=== PATIENT | female | born 1990 | race Caucasian/White ===

== ENCOUNTER 2024-03-19 12:31 | Outpatient (OUT) | payer OTHER, SELFPAY ==
--- NOTE | 2024-03-19 12:36 | US_ITS ---
[address] [address] Patient Name: JUAN FRANCISCO MENDOZA MRN: [id number] date: 1990 Sex: F Assigned Patient Location: [facility] Current Patient Location: [facility] Accession/Order Number: [id number] Exam Date: 03/19/2024 12:36 Report Date: 03/19/2024 13:36 At the request of: RADHA BAIG Procedure: US OB transvaginal EXAMINATION: US OB transvaginal HISTORY: MISSED MENSES COMPARISON: No relevant comparison available. FINDINGS: GESTATIONAL SAC: Present and normal appearing. YOLK SAC: Present and normal appearing. POLE: Present and normal appearing. CARDIAC: Present. UTERUS: Normal size and appearance. OVARIES: Right: Normal. Left: Normal. CERVIX: 5.0 cm in length and closed. CUL-DE-SAC: Normal. OTHER: None. AGE BY LMP: 8 weeks 6 days ÁLVARO BY LMP: 10/23/2024 AGE BY US CRL: 9 weeks 1 day ÁLVARO BY US CRL: 10/21/2024 US/US OB transvaginal IMPRESSION: 1. Single live intrauterine . Electronically authenticated by: FERN CALZADA Date: 03/19/2024 13:36
== END 2024-03-19 12:32 | disposition home or self-care (01) ==
LOC: NOMS 12:32
PROVIDERS: PCP Nurse Practitioner; Visit Provider Obstetrics & Gynecology
DX: Z34.91 Encounter for supervision of normal pregnancy, unspecified, first trimester (principal); Z3A.09 9 weeks gestation of pregnancy; N92.6 Irregular menstruation, unspecified
CPT/HCPCS: 76817

== ENCOUNTER 2024-05-14 12:54 | Outpatient (OUT) | payer OTHER, SELFPAY ==
[2024-05-14 13:37] LABS: Basophils Percent Auto 0.4 % (0.2-2.0); Eosinophils Absolute Auto 0.1 10^3/uL (0.0-0.7); Eosinophils Percent Auto 1.3 % (0.9-7.0); Hematocrit 33.8 % (36.0-48.0); Hemoglobin 11.3 g/dL (12.0-16.0); Immature Granulocytes Abs Auto 0.02 10^3/uL (0.00-0.03); Immature Granulocytes Pct Auto 0.3 % (0.0-0.5); Lymphocytes Absolute Auto 1.6 10^3/uL (1.2-3.8); Lymphocytes Percent Auto 21.1 % (20.5-60.0); Mean Corpuscular HGB Conc 33.4 g/dL (29.9-35.2); Mean Corpuscular Hemoglobin 30.9 pg (26.7-34.0); Mean Corpuscular Volume 92.3 fL (81.0-99.0); Mean Platelet Volume 9.9 fL (9.5-13.5); Monocytes Absolute Auto 0.5 10^3/uL (0.3-0.8); Monocytes Percent Auto 5.8 % (1.7-12.0); Neutrophils Absolute Auto 5.5 10^3/uL (1.4-6.5); Neutrophils Percent Auto 71.1 % (43.0-75.0); Platelet Count 265 10^3/uL (150-450); Red Blood Count 3.66 10^6/uL (4.20-5.40); Red Cell Distribution Width 13.3 % (11.0-15.0); White Blood Count 7.7 10^3/uL (4.0-11.0)
[2024-05-14 15:59] LABS: Estimated Average Glucose 88 mg/dL; Glycohemoglobin A1C 4.7 % (4.5-6.2)
[2024-05-15 06:10] LABS: HBsAg Screen Negative (Negative); HCV Ab Non Reactive (Non Reactive); HIV Ab/p24 Ag Screen Non Reactive (Non Reactive); Rubella Antibodies, IgG 2.14 index (Immune >0.99)
[2024-05-15 11:09] LABS: Rapid Plasma Reagin, Quant Non Reactive titer (NonRea<1:1)
== END 2024-05-14 12:55 | disposition home or self-care (01) ==
LOC: LAB 12:56
PROVIDERS: PCP Nurse Practitioner; Visit Provider Obstetrics & Gynecology
DX: Z34.90 Encounter for supervision of normal pregnancy, unspecified, unspecified trimester (principal); Z87.59 Personal history of other complications of pregnancy, childbirth and the puerperium
CPT/HCPCS: 36415; 83036; 85025; 86592; 86762; 86803; 86850; 86900; 86901; 87086; 87340; 87389

== ENCOUNTER 2024-05-21 20:32 | Outpatient (REF) | payer OTHER, SELFPAY ==
--- OUTSIDE RECORDS SUMMARY | 2024-05-21 20:37 | XMS_ITS | CCD ---
Author Organization [facility] Care Team Providers Care Senior Mainframe Developer Name Role Phone Augie Pedroza MD Primary Care Provider [phone] ELVIA DONIS Admitting Unavailable ELVIA DONIS Attending Unavailable AUGIE PEDROZA Primary Care Unavailable KI LEAL Consulting Unavailable AUGIE PEDROZA Referring Unavailable AUGIE PEDROZA Primary Care Unavailable THERESA, DR CHELITA Melendez Consulting Unavailable MISC, DR DOSHI Primary Care Unavailable JOVANNI, DR GARCIA Attending Unavailable JOVANNI, DR GARCIA Admitting Unavailable JOVANNI, DR GARCIA Consulting Unavailable KARASIK, DR RUVALCABA Consulting Unavailable KARASIK, DR RUVALCABA Attending Unavailable KARASIK, DR RUVALCABA Admitting Unavailable MISC, DR DOSHI Primary Care Unavailable MISC, DR DOSHI Primary Care Unavailable JOVANNI, DR GARCIA Attending Unavailable JOVANNI, DR GARCIA Admitting Unavailable JOVANNI, DR GARCIA Consulting Unavailable MISC, DR DOSHI Primary Care Unavailable KARASIK, DR RUVALCABA Attending Unavailable KARASIK, DR RUVALCABA Admitting Unavailable KARASIK, DR RUVALCABA Consulting Unavailable KARASIK, DR RUVALCABA Attending Unavailable KARASIK, DR RUVALCABA Admitting Unavailable MISC, DR DOSHI Primary Care Unavailable JOVANNI, DR GARCIA Consulting Unavailable ZIEBER, DR FERN Andrade Consulting Unavailable MARTIN SIERRA Consulting Unavailable MISC, DR DOSHI Primary Care Unavailable MARTIN SIERRA Attending Unavailable MARTIN SIERRA Admitting Unavailable REQUEST, DR BRAMBILA LISTED Consulting Unavaila ble MISC, DR DOSHI Primary Care Unavailable REQUEST, NONE LISTED Attending Unavaila ble REQUEST, DR BRAMBILA LISTED Admitting Unavaila ble MARTIN SIERRA Consulting Unavailable MISC, DR DOSHI Primary Care Unavailable MARTIN SIERRA Attending Unavailable MARTIN SIERRA Admitting Unavailable MARTIN SIERRA Consulting Unavailable MISC, DR DOSHI Primary Care Unavailable MARTIN SIERRA Attending Unavailable MARTIN SIERRA Admitting Unavailable THERESA, DR CHELITA Melendez Consulting Unavailable MARTIN SIERRA Primary Care Unavailable MARIELA, MARTIN Attending Unavailable MARIELA, MARTIN Admitting Unavailable MARIELA, MARTIN Consulting Unavailable JOVANNI, DR GARCIA Consulting Unavailable MISC, DR DOSHI Primary Care Unavailable JOVANNI, DR GARCIA Attending Unavailable JOVANNI, DR GARCIA Admitting Unavailable ZIEBER, DR FERN Andrade Consulting Unavailable MISC, DR DOSHI Primary Care Unavailable MARIELA, MARTIN Attending Unavailable MARIELA, MARTIN Admitting Unavailable MARIELA, MARTIN Consulting Unavailable JOVANNI, DR GARCIA Attending Unavailable JOVANNI, DR GARCIA Admitting Unavailable MISC, DR DOSHI Consulting Unavailable MISC, DR DOSHI Primary Care Unavailable JOVANNI, DR GARCIA Consulting Unavailable MISC, DR DOSHI Primary Care Unavailable JOVANNI, DR GARCIA Attending Unavailable JOVANNI, DR GARCIA Admitting Unavailable ZIEBER, DR FERN Andrade Consulting Unavailable WEST, DR CHELITA Melendez Consulting Unavailable MISC, DR DOSHI Primary Care Unavailable JOVANNI, DR GARCIA Attending Unavailable JOVANNI, DR GARCIA Admitting Unavailable JOVANNI, DR GARCIA Consulting Unavailable KARASIK, DR RUVALCABA Consulting Unavailable KARASIK, DR RUVALCABA Attending Unavailable KARASIK, DR RUVALCABA Admitting Unavailable MISC, DR DOSHI Primary Care Unavailable JOVANNI, DR GARCIA Consulting Unavailable ZIEBER, DR FERN Andrade Consulting Unavailable Ana Em Primary Care Physician [facility])[phone] Nicol, TOSHA Bergeron Attending Unavailable JOVANNI, RADHA Attending Unavailable JOVANNI, RADHA Attending Unavailable Medications Current Medications Medication Drug Class(es) Dates Sig (Normalized) Sig (Original) acetaminophen 500 mg oral tablet (1 source) Start: 10-05-2021 1,000 mg, Oral, EVERY 6 HOURS PRN, Pain Mild (1-3), Pain Mild (1-3) or Fever greater than 100.5 F (38 C), Starting on Azucena 10/05/21 at 1941 Maximum dose of acetaminophen is 4000 mg from all sources in 24 hours. aspirin 81 mg delayed release oral tablet (2 sources) Platelet Aggregation Inhibitor, Nonsteroidal Anti-inflammatory Drug Start: 10-06-2021 aspirin EC tablet 81 mg azithromycin 250 mg oral tablet (1 source) Macrolide Antimicrobial Start: 10-02-2021 azithromycin (ZITHROMAX) 250 MG tablet betamethasone 3 mg/ml / betamethasone acetate 3 mg/ml injectable suspension (1 source) Corticosteroid Start: 10-05-2021 End: 10-07-2021 inject 12 mg by intramuscular injection every twenty-four hours 12 mg, IntraMUSCular, EVERY 24 HOURS, First dose on Azucena 10/05/21 at 2000, For 2 doses 24 hr buPROPion hydrochloride 150 mg extended release oral tablet (2 sources) Aminoketone Start: 04-24-2022 take 1 tablet by mouth every twenty-four hours Wellbutrin XL 150 mg/24 hours Tab-ER 150 mg = 1 tab(s), Oral, q24hr, # 90 tab(s), Refills(s) 2, Pharmacy: [facility], 157.4, cm, 04/24/22 13:18:00 EDT, Height/Length Dosing, 72, kg, 03/22/22 14:14:00 EDT, Weight Dosing Start Date: 04/24/22 Status: Ordered Start: 03-22-2022 take 1 tablet by myah th every twenty-four hours Wellbutrin XL 150 mg/24 hours Tab-ER 150 mg = 1 tab(s), Oral, q24hr, # 30 tab(s), Refills(s) 0, Pharmacy: [facility], 157.4, cm, 03/22/22 14:14:00 EDT, Height/Length Dosing, 72, kg, 03/22/22 14:14:00 EDT, Weight Dosing Start Date: 03/22/22 Status: Ordered ondansetron 4 mg disintegrating oral tablet (1 source) Serotonin-3 Receptor Antagonist Start: 09-06-2021 ondansetron (ZOFRAN-ODT) 4 MG disintegrating tablet ondansetron (ZOFRAN-ODT) disintegrating tablet 4 mg (1 source) Start: 10-05-2021 ondansetron (ZOFRAN-ODT) disintegrating tablet 4 mg Vit-Fe Fumarate-FA ( VITAMINS PO) (1 source) Vit-Fe Fumarate-FA ( VITAMINS PO) Take 1 tablet by mouth 0 Active vitamin plus iron 29-1 MG tablet 1 tablet (1 source) Start: 10-06-2021 take 1 tablet by mouth once daily 1 tablet, Oral, DAILY, First dose on Sat10/06/21 at 0900 sertraline 25 mg oral tablet (4 sources) Serotonin Reuptake Inhibitor Start: 11-07-2021 take 1 tablet by mouth once daily Zoloft 25 mg Tab 25 mg = 1 tab(s), Oral, Daily, Refills(s) 0 Start Date: 11/07/21 Status: Ordered Start: 07-08-2021 sertraline (ZO LOFT) tablet 25 mg Problems Active Problems Problem Classification Problem Date Documented Date Episodic/Chronic Administrative/social admission (3 sources) Patient encounter status; Translations: [Persons encountering health services in other specified circumstances] Onset: 03-22-2022 Episodic Anxiety disorders (6 sources) Anxiety; Translations: [Anxiety disorder, unspecified] Onset: 10-05-2021 Chronic Attention-deficit, conduct, and disruptive behavior disorders (2 sources) Attention deficit hyperactivity disorder; Translations: [Attention-deficit hyperactivity disorder, unspecified type] Onset: 04-24-2022 Chronic Malposition; malpresentation (2 sources) Breech presentation; Translations: [Maternal care for breech presentation, not applicable or unspecified] Episodic Menstrual disorders (4 sources) Secondary amenorrhea; 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] Onset: 05-16-2021 Chronic Mood disorders (4 sources) Depressive disorder; Translations: [Depression, unspecified] Onset: 03-22-2022 Chronic Other complications of (3 sources) condition affecting obstetrical care of mother; Translations: [Maternal care for abnormalities of the heart rate or rhythm, unspecified trimester, not applicable or unspecified] Onset: 10-05-2021 Episodic Other complications of (3 sources) High risk ; Translations: [Supervision of high risk , unspecified, unspecified trimester] Onset: 10-05-2021 Episodic Other complications of (2 sources) ultrasound scan abnormal; Translations: [Abnormal ultrasonic finding on screening of mother] Onset: 10-05-2021 Episodic Other complications of (4 sources) Supervision of other high risk pregnancies, third trimester; Translations: [SUP OTH HIGH RISK 3RD TRI] Onset: 11-06-2021 Episodic Other complications of (1 source) Supervision of high risk , unspecified, unspecified trimester; Translations: [SUP HIGH RISK UNS UNS TRI] Onset: 11-04-2021 Episodic Other complications of (5 sources) Maternal care for abnormalities of the heart rate or rhythm, third trimester, not applicable or unspecified; Translations: [MTRN CARE ABN FHR/R 3RD TRI NA/UNS] Onset: 10-25-2021 Episodic Other complications of (4 sources) Maternal care for abnormalities of the heart rate or rhythm, unspecified trimester, not applicable or unspecified; Translations: [MTRN CARE ABN FHR/R UNS TRI NA/UNS] Onset: 10-06-2021 Episodic Other nutritional; endocrine; and metabolic disorders (1 source) Overweight in adulthood with body mass index of 25 or more but less than 30; Translations: [Body mass index (BMI) 29.0-29.9, adult] Onset: 03-22-2022 Episodic Other conditions (2 sources) exposure to drug; Translations: [[place] affected by maternal noxious substance, unspecified] Onset: 10-05-2021 Episodic Other screening for suspected conditions (not mental disorders or infectious disease) (8 sources) Encounter for screening for Streptococcus B; Translations: [Encounter for screening for malignant neoplasm of cervix] Onset: 05-18-2021 Episodic Polyhydramnios and other problems of amniotic cavity (2 sources) Oligohydramnios with problem; Translations: [Oligohydramnios, unspecified trimester, not applicable or unspecified] Onset: 10-05-2021 Episodic Residual codes; unclassified (2 sources) Gestation period, 32 weeks; Translations: [32 weeks gestation of ] Onset: 10-05-2021 Episodic Residual codes; unclassified (2 sources) History of pre-eclampsia; Translations: [Personal history of other complications of , childbirth and the puerperium] Onset: 10-05-2021 Episodic Residual codes; unclassified (1 source) 36 weeks gestation of ; Translations: [36 WEEKS GESTATION OF ] Onset: 11-08-2021 Episodic Residual codes; unclassified (1 source) 35 weeks gestation of ; Translations: [35 WEEKS GESTATION OF ] Onset: 11-02-2021 Episodic Residual codes; unclassified (1 source) 34 weeks gestation of ; Translations: [34 WEEKS GESTATION OF ] Onset: 10-25-2021 Episodic Unclassified (1 source) Patient encounter status 06-09-2022 Past or Other Problems Problem Classification Problem Date Documented Date Episodic/Chronic Immunizations and screening for infectious disease (1 source) Encounter for screening for human papillomavirus (HPV); Translations: [ENC SCREENING HUMAN PAPILLOMAVIRUS] Onset: 05-24-2021 Episodic Other complications of (1 source) Other placental disorders, first trimester; Translations: [OTH PLACENTAL DISORDER FIRST TRI] Onset: 04-26-2021 Episodic Other and delivery including normal (4 sources) Encounter for supervision of normal , unspecified, second trimester; Translations: [ENC SUP NORMAL PREG UNS SECOND TRI] Onset: 09-05-2021 Episodic Residual codes; unclassified (4 sources) Personal history of other complications of , childbirth and the puerperium; Translations: [PERS HX OTH COMP PG CHILDBIRTH AND PP] Onset: 10-12-2021 Episodic Residual codes; unclassified (1 source) 32 weeks gestation of ; Translations: [32 WEEKS GESTATION OF ] Onset: 10-12-2021 Episodic Residual codes; unclassified (1 source) 16 weeks gestation of ; Translations: [16 WEEKS GESTATION OF ] Onset: 07-21-2021 Episodic Residual codes; unclassified (1 source) 8 weeks gestation of ; Translations: [8 WEEKS GESTATION OF ] Onset: 04-26-2021 Episodic Unclassified (6 sources) Onset: 05-16-2017 Resolved: 11-08-2021 11-07-2021 Results Test Name Value Interpretation Reference Range Facility RAD - Ultrasound Reporton RAD - Ultrasound Report [id number] Normal [facility] GROUP B STREP CULTUREon 10-15 S. agalactiae Ag Ql (Unsp spec) Culture Observations: NEGATIVE FOR GROUP B STREPTOCOCCUS. Normal [facility] Comment on above: Performed By: #### R PRQ #### [facility] [address] [place] [address] Nancy Piper US PREG BIOPHY W NON STRESSo n 11-02-2021 US PREG BIOPHY W NON STRESS EXAMINATION: US PREG BIOPHY W NON STRESS HISTORY: History of complication of , childbirth and/or puerperium COMPARISON: No relevant comparison available. TECHNIQUE: Ultrasound biophysical profile was performed in the radiology department. FINDINGS: BREATHING MOVEMENTS: 2.0 GROSS BODY MOVEMENTS: 2.0 TONE: 2.0 QUALITATIVE AMNIOTIC FLUID VOLUME: 2.0 PRESENTATION: Cephalic HEART RATE: 141.4 bpm H.B./min AMNIOTIC FLUID VOLUME: 7.5 cm cm GESTATIONAL AGE: 36 weeks 2 days CONCLUSION: Total biophysical profile score: 8.0 Electronically authenticated by: CHELITA CARDENAS Date: 2021-11-02 13:37 Normal [facility] US PREG BIOPHY W NON STRESSo n 10-26-2021 US PREG BIOPHY W NON STRESS EXAMINATION: US PREG BIOPHY W NON STRESS HISTORY: History of complication of , childbirth and/or puerperium COMPARISON: No relevant comparison available. TECHNIQUE: Ultrasound biophysical profile was performed in the radiology department. non-reactive stress testing was performed by nursing staff in the birthing center. FINDINGS: BREATHING MOVEMENTS: 2.0 GROSS BODY MOVEMENTS: 2.0 TONE: 2.0 QUALITATIVE AMNIOTIC FLUID VOLUME: 2.0 PRESENTATION: Cephalic HEART RATE: 147.6 bpm H.B./min AMNIOTIC FLUID VOLUME: 11.0 cm cm GESTATIONAL AGE: 35 weeks 2 days CONCLUSION: Total biophysical profile score: 8.0 Electronically authenticated by: CHELITA CARDENAS Date: 2021-10-26 14:34 Normal [facility] US PREG BIOPHY W NON STRESSo n 10-19-2021 US PREG BIOPHY W NON STRESS EXAMINATION: US PREG BIOPHY W NON STRESS HISTORY: History of complication of , childbirth and/or puerperium COMPARISON: No relevant comparison available. TECHNIQUE: Ultrasound biophysical profile was performed. FINDINGS: BREATHING MOVEMENTS: 2.0 GROSS BODY MOVEMENTS: 2.0 TONE: 2.0 QUALITATIVE AMNIOTIC FLUID VOLUME: 2.0 PRESENTATION: Blank HEART RATE: 141.4 bpm bpm. AMNIOTIC FLUID VOLUME: 7.0 cm (deepest pocket 1.9 cm) GESTATIONAL AGE: 34 weeks 2 days CONCLUSION: 1. Total biophysical profile score 8.0 2. Oligohydramnios.. Electronically authenticated by: FERN CALZADA Date: 2021-10-19 14:42 Normal [facility] US PREG BIOPHY W NON STRESSo n 10-12-2021 US PREG BIOPHY W NON STRESS EXAMINATION: US PREG BIOPHY W NON STRESS HISTORY: Oligohydramnios COMPARISON: Ultrasound biophysical 10/05/2021 TECHNIQUE: Ultrasound biophysical profile was performed. FINDINGS: BREATHING MOVEMENTS: 2.0 GROSS BODY MOVEMENTS: 2.0 TONE: 2.0 QUALITATIVE AMNIOTIC FLUID VOLUME: 2.0 PRESENTATION: Cephalic HEART RATE: 148.4 bpm bpm. AMNIOTIC FLUID VOLUME: 8.0 cm GESTATIONAL AGE: 33 weeks 2 days CONCLUSION: 1. Total biophysical profile score 8.0. 2. Amniotic fluid volume is 8.0 cm (this falls just below 5th percentile). Deepest pocket is 3.2 cm. 3. Patient information states known arrhythmia. Electronically authenticated by: FERN CALZADA Date: 2021-10-12 13:32 Normal [facility] 10-09-2021 Send Out Report FORWARD TO [place] Comment on above: Performed By: #### C MIS #### [address] [address] Supervisor Print Line: Mark Hernadez MD [facility] 10-09-2021 SSA <0.3 Normal <7.0 [facility] Comment on above: Result Comment: Reference Range: <7.0 Negative 7.0-10.0 Equivocal >10.0 Positive Performed By: #### C DP, FT4, TSH, SSARO, SSBLA #### [facility] [email or web address] [address] [place] [id number] Supervisor Print Line: Mark Hernadez MD [facility] 10-09-2021 SSB <0.3 Normal <7.0 [facility] Comment on above: Result Comment: Reference Range: <7.0 Negative 7.0-10.0 Equivocal >10.0 Positive Performed By: #### C DP, FT4, TSH, SSARO, SSBLA #### [facility] [email or web address] [address] [place] [id number] Supervisor Print Line: Mark Hernadez MD [facility] 10-06-2021 Test Name [facility] Comment on above: Performed By: #### C MIS #### [address] [address] Supervisor Print Line: Mark Hernadez MD CBC WITH AUTO DIFFERENTIALon 10-05-2021 Absolute Eos # 0.05 [facility] th Absolute Immature Granulocyte 0.03 [facility] Absolute Lymph # 1.73 [facility] He alth Absolute Wilkinson # 0.52 [facility] Hea lth Basophils (Bld) [#/Vol] 10*3/uL [facility] [employer] Basophils/100 WBC (Bld) 0 % 0 - 2 % [facility] [employer] Differential Type NOT REPORTED [facility] [employer] Eosinophils/100 WBC (Bld) 1 % 1 - 4 % [facility] [employer] Hematocrit (Bld) [Volume fraction] 30.1 % Low 36.3 - 47.1 % [facility] Hemoglobin.gastrointe stinal spec 1 Ql (Stl) 10.3 g/dL Low 11.9 - 15.1 g/dL [facility] [employer] Immature granulocytes/100 WBC (Bld) 0 % 0 [facility] [employer] Interpretation and review of laboratory results Abnormal [facility] [employer] Lymphocytes/100 WBC (Bld) 26 % 24 - 43 % [facility] [employer] MCH (RBC) [Entitic mass] 31.3 pg 25.2 - 33.5 pg [facility] [employer] MCHC (RBC) [Mass/Vol] 34.2 g/dL 28.4 - 34.8 g/dL [facility] [employer] MCV (RBC) [Entitic vol] 91.5 fL 82.6 - 102.9 fL [facility] Monocytes/100 WBC (Bld) 8 % 3 - 12 % [facility] NRBC Automated 0.0 0.0 per 100 WBC [facility] Platelet distribution width (Bld) [Ratio] 13.6 % 11.8 - 14.4 % [facility] Platelet Estimate NOT REPORTED [facility] Platelet mean volume (Bld) [Entitic vol] 9.8 fL 8.1 - 13.5 fL [facility] Platelets (Bld) [#/Vol] 265 10*3/uL [facility] [employer] RBC (Bld) [#/Vol] 3.29 10*6/uL Low 3.95 - 5.1 1 m/uL [facility] RBC (Bld) [#/Vol] NOT REPORTED [facility] [employer] Segmented neutrophils/100 WBC (Bld) 65 % 36 - 65 % [facility] [employer] Segs Absolute 4.35 [facility] h WBC (Bld) [#/Vol] 6.7 10*3/uL [facility] WBC (Bld) [#/Vol] NOT REPORTED [facility] CBC with Diffon 10-05-2021 Abs. Basophil <0.03 Normal 0.00-0.20 [facility] Comment on above: Performed By: #### C DP, FT4, TSH, SSARO, SSBLA #### [address] [address] Supervisor Print Line: Mark Hernadez MD Abs.Imm.Granulocyte 0.03 k/uL Normal 0.00-0.30 [facility] Comment on above: Performed By: #### C DP, FT4, TSH, SSARO, SSBLA #### [address] [address] Supervisor Print Line: Mark Hernadez MD Abs.Neutrophil (Seg) 4.35 k/uL Normal 1.50-8.10 [facility] Comment on above: Performed By: #### C DP, FT4, TSH, SSARO, SSBLA #### [address] [address] Supervisor Print Line: Mark Hernadez MD Basophils/100 WBC (Bld) 0 % Normal 0-2 [facility] Comment on above: Performed By: #### C DP, FT4, TSH, SSARO, SSBLA #### [address] [address] Supervisor Print Line: Mark Hernadez MD Eosinophils (Bld) [#/Vol] 0.05 10*3/uL Normal 0.00-0.44 [facility] Comment on above: Performed By: #### C DP, FT4, TSH, SSARO, SSBLA #### [address] [address] Supervisor Print Line: Mark Hernadez MD Eosinophils/100 WBC (Bld) 1 % Normal 1-4 [facility] Comment on above: Performed By: #### C DP, FT4, TSH, SSARO, SSBLA #### [address] [address] Supervisor Print Line: Mark Hernadez MD Erythrocyte distribution width (RBC) [Ratio] 13.6 % Normal 11.8-14.4 [facility] Comment on above: Performed By: #### C DP, FT4, TSH, SSARO, SSBLA #### [address] [address] Supervisor Print Line: Mark Hernadez MD Hematocrit (Bld) [Volume fraction] 30.1 % Low 36.3-47.1 [facility] Comment on above: Performed By: #### C DP, FT4, TSH, SSARO, SSBLA #### [place] [address] Supervisor Print Line: Mark Hernadez MD Hemoglobin (Bld) [Mass/Vol] 10.3 g/dL Low 11.9-15.1 [facility] Comment on above: Performed By: #### C DP, FT4, TSH, SSARO, SSBLA #### [address] [address] Supervisor Print Line: Mark Hernadez MD Immature granulocytes/100 WBC (Bld) 0 % Normal 0 [facility] Comment on above: Performed By: #### C DP, FT4, TSH, SSARO, SSBLA #### [address] [address] Supervisor Print Line: Mark Hernadez MD Lymphocytes (Bld) [#/Vol] 1.73 10*3/uL Normal 1.10-3.70 [facility] Comment on above: Performed By: #### C DP, FT4, TSH, SSARO, SSBLA #### [address] [address] Supervisor Print Line: Mark Hernadez MD Lymphocytes/100 WBC (Bld) 26 % Normal 24-43 [facility] Comment on above: Performed By: #### C DP, FT4, TSH, SSARO, SSBLA #### [address] [address] Supervisor Print Line: Mark Hernadez MD MCH (RBC) [Entitic mass] 31.3 pg Normal 25.2-33.5 [facility] Comment on above: Performed By: #### C DP, FT4, TSH, SSARO, SSBLA #### [address] [address] Supervisor Print Line: Mark Hernadez MD MCHC (RBC) [Mass/Vol] 34.2 g/dL Normal 28.4-34.8 [facility] Comment on above: Performed By: #### C DP, FT4, TSH, SSARO, SSBLA #### [place] [address] Supervisor Print Line: Mark Hernadez MD MCV (RBC) [Entitic vol] 91.5 fL Normal 82.6-102.9 [facility] Comment on above: Performed By: #### C DP, FT4, TSH, SSARO, SSBLA #### [address] [address] Supervisor Print Line: Mark Hernadez MD Monocytes (Bld) [#/Vol] 0.52 10*3/uL Normal 0.10-1.20 [facility] Comment on above: Performed By: #### C DP, FT4, TSH, SSARO, SSBLA #### [address] [address] Supervisor Print Line: Mark Hernadez MD Monocytes/100 WBC (Bld) 8 % Normal 3-12 [facility] Comment on above: Performed By: #### C DP, FT4, TSH, SSARO, SSBLA #### [address] [address] Supervisor Print Line: Mark Hernadez MD Neutrophil (Seg) 65 % Normal 36-65 [facility] Comment on above: Performed By: #### C DP, FT4, TSH, SSARO, SSBLA #### [address] [address] Supervisor Print Line: Mark Hernadez MD NRBC Automated 0.0 per 100 WBC Normal 0.0 [facility] Comment on above: Performed By: #### C DP, FT4, TSH, SSARO, SSBLA #### [address] [address] Supervisor Print Line: Mark Hernadez MD Platelet mean volume (Bld) [Entitic vol] 9.8 fL Normal 8.1-13.5 [facility] Comment on above: Performed By: #### C DP, FT4, TSH, SSARO, SSBLA #### [address] [address] Supervisor Print Line: Mark Hernadez MD Platelets (Bld) [#/Vol] 265 10*3/uL Normal 138-453 [facility] Comment on above: Performed By: #### C DP, FT4, TSH, SSARO, SSBLA #### [address] [address] Supervisor Print Line: Mark Hernadez MD RBC (Bld) [#/Vol] 3.29 10*6/uL Low 3.95-5.11 [facility] Comment on above: Performed By: #### C DP, FT4, TSH, SSARO, SSBLA #### [address] [address] Supervisor Print Line: Mark Hernadez MD WBC (Bld) [#/Vol] 6.7 10*3/uL Normal 3.5-11.3 [facility] Comment on above: Performed By: #### C DP, FT4, TSH, SSARO, SSBLA #### [facility] [address] [place] [id number] Supervisor Print Line: Mark Hernadez MD Auto Diff Performed NOT REPORTED Normal [facility] Comment on above: Performed By: #### C DP, FT4, TSH, SSARO, SSBLA #### [facility] [address] [place] [id number] Supervisor Print Line: Mark Hernadez MD Platelet Comment NOT REPORTED Normal [facility] Comment on above: Performed By: #### C DP, FT4, TSH, SSARO, SSBLA #### [facility] [address] [place] [id number] Supervisor Print Line: Mark Hernadez MD RBC morphology finding Nom (Bld) NOT REPORTED Normal [facility] Comment on above: Performed By: #### C DP, FT4, TSH, SSARO, SSBLA #### [email or web address] [address] [place] [address] Supervisor Print Line: Mark Hernadez MD WBC Morphology NOT REPORTED Normal [facility] Comment on above: Performed By: #### C DP, FT4, TSH, SSARO, SSBLA #### [facility] [address] [place] [id number] Supervisor Print Line: Mark Hernadez MD No Panel Informationon 10-05 [facility] T4, FREEon 10-05-2021 Thyroxine, Free 1.04 ng/dL 0.93 - 1.70 ng/dL [facility] TSH without Reflexon 021 TSH Qn 1.94 m[IU]/L [facility] TYPE AND SCREENon 10-05-2021 ABO/Rh Positive [facility] [id number] [facility] Expiration Date 10/08/2021,2359 [facility] Thyroid Stim. Horm.on 2020 TSH Qn 1.94 m[IU]/L Normal 0.30-5.00 [facility] Comment on above: Performed By: #### C DP, FT4, TSH, SSARO, SSBLA #### [facility] [place], [place] [address] Supervisor Print Line: Mark Hernadez MD Thyroxine, Freeon 10-05-2021 Thyroxine, Free 1.04 ng/dL Normal 0.93-1.70 [facility] Comment on above: Performed By: #### C DP, FT4, TSH, SSARO, SSBLA #### [facility] [place] [address] Supervisor Print Line: Mark Hernadez MD Type + Screenon 10-05-2021 Type + Screen Sample Expiration 10/08/2021,2359 Arm Band Number [id number] ABO/Rh(D) O POSITIVE Antibody Screen NEGATIVE Normal [facility] Comment on above: Performed By: #### T YS #### [facility] [address] [place] [address] Supervisor Print Line: Mark Hernadez MD US PREG BIOPHY W NON STRESSo n 10-05-2021 US PREG BIOPHY W NON STRESS EXAMINATION: US PREG BIOPHY W NON STRESS HISTORY: COMPARISON: No relevant comparison available. TECHNIQUE: Ultrasound biophysical profile was performed. FINDINGS: BREATHING MOVEMENTS: 0.0 GROSS BODY MOVEMENTS: 2.0 TONE: 2.0 QUALITATIVE AMNIOTIC FLUID VOLUME: 2.0 PRESENTATION: Cephalic HEART RATE: 129.8 bpm bpm. AMNIOTIC FLUID VOLUME: 7.5 cm GESTATIONAL AGE: 32 weeks 2 days CONCLUSION: 1. Total biophysical profile score 6.0. 2. Oligohydramnios. Electronically authenticated by: FERN CALZADA Date: 2021-10-05 13:16 Normal [facility] US PREG GROWTHon 10-05-2021 US PREG GROWTH EXAMINATION: US PREG GROWTH HISTORY: arrhythmia COMPARISON: Ultrasound anatomy 07/17/2021 FINDINGS: Heart Rate: 135.0 bpm Number: 1.0 Position: Cephalic Amniotic Fluid Volume: 7.6 cm Maximum Vertical Pocket: 2.5 cm BIOMETRY: BPD: 8.2 cm cm; 33 weeks 1 days; 66% HC: 30.1 cmcm; 33 weeks 2 days; 40% AC: 27.9 cm cm; 32 weeks 0 days; 40% FL: 6.1 cm cm; 31 weeks 6 days; 25% EFW: 1916.3 grams; 35% FL/AC: 21.9 FL/BPD: 74.5 HC/AC: 1.1 GESTATIONAL AGE: Age by EDC: 32 weeks 2 days ÁLVARO by EDC: 11/28/2021 Age by US: 32 weeks, 4 days ÁLVARO by US: 11/26/2021 IMPRESSION: 1. Single live intrauterine with growth detailed above. 2. Oligohydramnios (3rd percentile). 3. Slightly thickened appearance of [place]'s jelly surrounding the umbilical cord; nonspecific but can be associated with gestational diabetes. Report placed in the stat call folder. Electronically authenticated by: FERN CALZADA Date: 2021-10-05 13:22 Normal [facility] CBC AUTO DIFFon 09-05-2021 BASO # 0.0 103/ul Normal 0.0-0.1 [facility] Comment on above: Performed By: #### V MORISEL #### [facility] [address] [place], [place] [address] Nancy Veronique Basophils/100 WBC (Bld) 0.3 % Normal 0.2-2.0 [facility] Comment on above: Performed By: #### V RITA #### [facility] [address] [place], [place] [address] Nancy Veronique EO # 0.1 103/ul Normal 0.0-0.7 [facility] Comment on above: Performed By: #### V RITA #### [facility] [address] [place], [place] [address] Nancy Veronique Eosinophils/100 WBC (Bld) 0.8 % Critically low 0.9-7.0 [facility] Comment on above: Performed By: #### V MORISEL #### [facility] [address] [place], [place] [address] Nancy Veronique Erythrocyte distribution width (RBC) [Ratio] 13.5 % Normal 11.0-15.0 [facility] Comment on above: Performed By: #### Nora SALINAS #### [facility] [address] [place] [address] Nancy Piper Hematocrit (Bld) [Volume fraction] 33.0 % Critically low 36.0-48.0 [facility] Comment on above: Performed By: #### V RITA #### [facility] [address] [place] [address] Nancy Piper Hemoglobin (Bld) [Mass/Vol] 10.8 g/dL Critically low 12.0-16.0 [facility] Comment on above: Performed By: #### Nora SALINAS #### [facility] [address] [place] [address] Nancy Piper IG # 0.05 10e3/ul Critically high 0.00-0.03 [facility] Comment on above: Performed By: #### Nora SALINAS #### [facility] [address] [place] [address] Nancy Piper IG % 0.6 % Critically high 0.0-0.5 [facility] Comment on above: Performed By: #### Nora SALINAS #### [facility] [address] [place] [address] Nancy Piper LYMPH # 1.4 103/ul Normal 1.2-3.8 [facility] Comment on above: Performed By: #### Nora SALINAS #### [facility] [address] [place] [address] Nancy Veronique Lymphocytes/100 WBC (Bld) 17.1 % Critically low 20.5-60.0 [facility] Comment on above: Performed By: #### Nora SALINAS #### [facility] [address] [place], [place] [address] Nancy Piper MANUAL DIFF REQ NO Normal [facility] Comment on above: Performed By: #### Nora SALINAS #### [facility] [address] [place], [place] [address] Nancy Piper MCH (RBC) [Entitic mass] 31.4 pg Normal 26.7-34.0 [facility] Comment on above: Performed By: #### Nora SALINAS #### [facility] [address] [place], [place] [address] Nancy Piper MCHC (RBC) [Mass/Vol] 32.7 g/dL Normal 29.9-35.2 [facility] Comment on above: Performed By: #### Nora SALINAS #### [facility] [address] [place], [place] [address] Nancy Piper MCV (RBC) [Entitic vol] 95.9 fL Normal 81.0-99.0 [facility] Comment on above: Performed By: #### Nora SALINAS #### [facility] [address] [place] [id number] Nancypatricia Kellyen MONO # 0.5 103/ul Normal 0.3-0.8 [facility] Comment on above: Performed By: #### Nora SALINAS #### [facility] [address] [place], [place] [address] Nancy Piper Monocytes/100 WBC (Bld) 6.3 % Normal 1.7-12.0 [facility] Comment on above: Performed By: #### Nora SALINAS #### [facility] [address] [place], [place] [address] Nancy Veronique NEUT # 5.9 103/ul Normal 1.4-6.5 [facility] Comment on above: Performed By: #### Nora SALINAS #### [facility] [address] [place], [place] [address] Nancypatricia Piper Neutrophils/100 WBC (Bld) 74.9 % Normal 43.0-75.0 [facility] Comment on above: Performed By: #### Nora SALINAS #### [facility] [address] [place] [address] Nancypatricia Piper Platelet mean volume (Bld) [Entitic vol] 9.9 fL Normal 9.5-13.5 [facility] Comment on above: Performed By: #### Nora SALINAS #### [facility] [address] [place], [place] [address] Nancy Veronique PLT 243 103/ul Normal 150-450 [facility] Comment on above: Performed By: #### Nora SALINAS #### [facility] [address] [place], [place] [address] Nancy Kellyen RBC 3.44 106/ul Critically low 4.20-5.40 [facility] Comment on above: Performed By: #### V RITA #### [facility] [address] [place], [place] [address] Nancy Piper WBC 7.9 103/ul Normal 4.0-11.0 [facility] Comment on above: Performed By: #### V RITA #### [facility] [address] [place], [place] [address] Nancy Piper GLUCOSE - 1HRon 09-05-2021 Glucose [Mass/Vol] 98 mg/dL Normal 74-106 [facility] Comment on above: Performed By: #### G LU1HR #### [facility] [address] [place], [place] [address] Dr. Leonardo Khalil US PREG ANATOMY SINGLEon US PREG ANATOMY SINGLE Begin Addendum #1 ANATOMY: Normal Structures -cerebellum, choroid plexus, cisterna magna, lateral cerebral ventricles, orbits, midline falx, hard palate, four-chamber heart, RVOT, LVOT, stomach, kidneys, bladder, umbilical cord insertion into abdomen, three-vessel cord, cervical spine, thoracic spine, lumbar spine, sacral spine, right upper extremity, left upper extremity, right lower extremity, left lower extremity. SUBOPTIMALLY SEEN: None ABNORMALITIES: None Original Report EXAMINATION: US PREG ANATOMY SINGLE HISTORY: Gestation period, 16 weeks COMPARISON: No relevant comparison available. TECHNIQUE: Transabdominal sonographic examination was performed for obstetrical and evaluation. FINDINGS: Number: 1 Heart Rate: 156 H.B. /min Amniotic Fluid Volume: Subjectively normal Placental Location: Posterior with lower margin 5.7 cm from internal os. Cervix Length: 4.8 cm, closed BIOMETRY: BPD: 5.1 cm 21 weeks 2 days HC: 18.6 cm 21 weeks 0 days AC: 17.0 cm 22 weeks 0 days FL: 3.7 cm 21 weeks 4 days EFW: 446 g (61st percentile by ultrasound, 88th percentile by expected) FL/AC: 0.871684 FL/BPD: 0.665847 HC/AC: 1.090809 GESTATIONAL AGE: Age by EDC: 20 weeks, 6 days ÁLVARO by EDC: 11/28/2021 Age by current US: 21 weeks, 3 days ÁLVARO by current US: 11/24/2021 IMPRESSION: 1. Single live intrauterine with growth detailed above. Normal [facility] Pap IG, rfx Aptima HPV, rfx 16/18,45 + Con 05-22-2021 . . Normal [facility] Comment on above: Result Comment: Perf ormed at: WB Performed By: #### V MORISEL #### [facility] [address] [place] [address] Nancy Piper Chlamydia, Nuc. Acid Amp Negative Normal Negative [facility] Comment on above: Result Comment: Perf ormed at: =G Performed By: #### V MORISEL #### [facility] [address] [place] [address] Nancy Piper DIAGNOSIS: Comment Normal [facility] Comment on above: Result Comment: NEGA TIVE FOR INTRAEPITHELIAL LESION OR MALIGNANCY. Performed at: WB Performed By: #### V OMRISEL #### [facility] [address] [place] [address] Nancy Piper Gonococcus, Nuc. Acid Amp Negative Normal Negative [facility] Comment on above: Result Comment: Perf ormed at: =G Performed By: #### V MORISEL #### [facility] [address] [place] [address] Nancy Piper HPV Aptima Negative Normal Negative [facility] Comment on above: Result Comment: This nucleic acid amplification test detects fourteen high-risk HPV types (16,18,31,33,35,39,45,51,52,56,58,59,66,68) without differentiation. Performed at: =G Performed By: #### V ARCEL #### [facility] [address] [place] [address] Nancy Piper Methodology: Comment Normal [facility] Comment on above: Result Comment: This liquid based ThinPrep(R) pap test was screened with the use of an image guided system. Performed at: WB Performed By: #### V MORISEL #### [facility] [address] [place], [place] [address] Nancy Veronique Note: Comment Normal [facility] Comment on above: Result Comment: The Pap smear is a screening test designed to aid in the detection of premalignant and malignant conditions of the uterine cervix. It is not a diagnostic procedure and should not be used as the sole means of detecting cervical cancer. Both false-positive and false-negative reports do occur. . Performed at: WB Performed By: #### V ARCEL #### [facility] [address] [place] [address] Nancy Veronique Performed by: Comment Normal [facility] Comment on above: Result Comment: Irving Alarcon, Transcribing Operators Supervisor (ASCP) Performed at: WB Performed By: #### V ARCEL #### [facility] [address] [place] [address] Nancy Veronique Specimen adequacy: Comment Normal [facility] Comment on above: Result Comment: Sati sfactory for evaluation. No endocervical component is identified. Performed at: WB Performed By: #### V ARCEL #### [facility] [address] [place] [address] Nancy Veronique CULTURE URINEon 05-18-2021 CULTURE URINE Culture Observations : LIGHT GROWTH OF MIXED GENITAL KRISTEL. NO POTENTIAL PATHOGENS SEEN. Normal [facility] Comment on above: Performed By: #### U RCX #### [facility] [address] [place] [address] Nancy Veronique UA RANDOM W/MICROSCOPICon BACTERIA NONE SEEN Normal NONE SEEN [facility] Comment on above: Performed By: #### R PRQ #### [facility] [address] [place] [address] Nancy Veronique Bilirubin Ql (U) Negative Normal NEGATIVE [facility] Comment on above: Performed By: #### R PRQ #### [facility] [address] [place] [address] Nancy Veronique CAST NONE SEEN Normal NONE SEEN [facility] Comment on above: Performed By: #### R PRQ #### [facility] [address] [place], [place] [address] Nancy Veronique Clarity (U) CLEAR Normal CLEAR [facility] Comment on above: Performed By: #### R PRQ #### [facility] [address] [place] [address] Nancy Veronique Color (U) LT. YELLOW Normal YELLOW [facility] Comment on above: Performed By: #### R PRQ #### [facility] [address] [place] [address] Nancy Veronique Crystals LM Nom (Urine sed) NONE SEEN Normal NONE SEEN [facility] Comment on above: Performed By: #### R PRQ #### [facility] [address] [place] [address] Nancy Veronique Epithelial cells LM Ql (Urine sed) FEW Abnormal NONE SEEN /RARE [facility] Comment on above: Performed By: #### R PRQ #### [facility] [address] [place] [address] Nancy Veronique Glucose Ql (U) Negative Normal NEGATIVE [facility] Comment on above: Performed By: #### R PRQ #### [facility] [address] [place] [address] Nancy Veronique Hemoglobin Ql (U) Negative Normal NEGATIVE [facility] Comment on above: Performed By: #### R PRQ #### [facility] [address] [place] [address] Nancy Veronique Ketones Ql (U) Negative Normal NEGATIVE [facility] Comment on above: Performed By: #### R PRQ #### [facility] [address] [place] [address] Nancy Veronique LEUKOCYTES Negative Normal NEGATIVE [facility] Comment on above: Performed By: #### R PRQ #### [facility] [address] [place] [address] Nancy Veronique MUCOUS TRACE Abnormal NONE SEEN [facility] Comment on above: Performed By: #### R PRQ #### [facility] [address] [place] [address] Nancy Veronique Nitrite Ql (U) Negative Normal NEGATIVE [facility] Comment on above: Performed By: #### R PRQ #### [facility] [address] [place], [place] [address] Nancy Piper pH (U) 5.5 [pH] Normal 5-9 [facility] Comment on above: Performed By: #### R PRQ #### [facility] [address] [place] [address] Nancy Piper RBC NONE SEEN Abnormal 0-2 [facility] Comment on above: Performed By: #### R PRQ #### [facility] [address] [place] [address] Nancy Piper SPEC GRAVITY >=1.030 Abnormal 1.005-<=1.025 [facility] Comment on above: Performed By: #### R PRQ #### [facility] [address] [place] [address] Nancy Piper UA PROTEIN Negative Normal NEGATIVE/ TRACE [facility] Comment on above: Performed By: #### R PRQ #### [facility] [address] [place] [address] Nancy Piper Urobilinogen Qn (U) 0.2 {Travis'U}/dL Normal 0.2 - 1. 0 [facility] Comment on above: Performed By: #### R PRQ #### [facility] [address] [place] [address] Nancy Piper WBC NONE SEEN Normal NONE SEEN [facility] Comment on above: Performed By: #### R PRQ #### [facility] [address] [place] [address] Nancy Piper HEMOGLOBINOPATHY FRACTIONATI ON CASCADEon 05-17-2021 HGB A 97.8 % Normal 96.4-98.8 [facility] Comment on above: Performed By: #### H GBCAS #### [facility] [address] [place] [address] Nancy Piper HGB A2 2.2 % Normal 1.8-3.2 [facility] Comment on above: Performed By: #### H GBCAS #### [facility] [address] [place] [address] Nancy Veronique HGB F 0.0 % Normal 0.0-2.0 [facility] Comment on above: Performed By: #### H GBCAS #### [facility] [address] [place] [address] Nancy Piper HGB S 0.0 % Normal 0.0 [facility] Comment on above: Performed By: #### H GBCAS #### [facility] [address] [place] [address] Nancy Piper Interpretation: Comment Normal [facility] Comment on above: Result Comment: Norm al hemoglobin present; no hemoglobin variant or thalassemia observed. Performed By: #### H GBCAS #### [facility] [address] [place] [address] Nancy Piper HEP B SURFACE ANTIGEN SCREEN on 05-17-2021 HBsAg Screen Negative Normal Negative [facility] Comment on above: Performed By: #### H BSANS #### [facility] [address] [place] [address] Nancy Piper HEPATITIS C ANTIBODYon 05-17 Hep C Virus Ab <0.1 Normal 0.0-0.9 [facility] Comment on above: Result Comment: Nega tive: < 0.8 Indeterminate: 0.8 - 0.9 Positive: > 0.9 . The CDC recommends that a positive HCV antibody result be followed up with a HCV Nucleic Acid Amplification test (018042). Performed By: #### H CV #### [facility] [address] [place] [address] Nancy Piper HIV 1 AND 2 WITH REFLEXon HIV Screen 4th Generation wRfx Non-Reactive Normal Non Reactive [facility] Comment on above: Performed By: #### V ARCEL #### [facility] [address] [place] [address] Nancy Piper RPR QUANTon 05-17-2021 Rapid Plasma Reagin, Quant Non-Reactive Normal NonRea<1:1 [facility] Comment on above: Performed By: #### R PRQ #### [facility] [address] [place] [address] Nancy Piper RUBELLA AB IGGon 05-17-2021 Rubella Antibodies, IgG 4.07 index Normal Immune >0.99 [facility] Comment on above: Result Comment: Non- immune <0.90 Equivocal 0.90 - 0.99 Immune >0.99 Performed By: #### R UBLORIEG #### [facility] [address] [place], [place] [address] Nancy Veronique VARICELLA IGG ABon Varicella Zoster IgG 1067 index Normal Immune >165 [facility] Comment on above: Result Comment: Nega tive <135 Equivocal 135 - 165 Positive >165 A positive result generally indicates exposure to the pathogen or administration of specific immunoglobulins, but it is not indication of active infection or stage of disease. Performed By: #### V RITA #### [facility] [address] [place] [address] Nancy Veronique CBC AUTO DIFFon 05-16-2021 BASO # 0.0 103/ul Normal 0.0-0.1 [facility] Comment on above: Performed By: #### C BC #### [facility] [address] [place] [address] Nancy Veronique Basophils/100 WBC (Bld) 0.3 % Normal 0.2-2.0 [facility] Comment on above: Performed By: #### C BC #### [facility] [address] [place] [address] Nancy Veronique EO # 0.1 103/ul Normal 0.0-0.7 [facility] Comment on above: Performed By: #### C BC #### [facility] [address] [place] [address] Nancy Veronique Eosinophils/100 WBC (Bld) 0.8 % Critically low 0.9-7.0 [facility] Comment on above: Performed By: #### C BC #### [facility] [address] [place] [address] Nancy Veronique Erythrocyte distribution width (RBC) [Ratio] 12.6 % Normal 11.0-15.0 [facility] Comment on above: Performed By: #### C BC #### [facility] [address] [place] [address] Nancypatricia Piper Hematocrit (Bld) [Volume fraction] 36.7 % Normal 36.0-48.0 [facility] Comment on above: Performed By: #### C BC #### [facility] [address] [place] [address] Nancypatricia Piper Hemoglobin (Bld) [Mass/Vol] 12.5 g/dL Normal 12.0-16.0 [facility] Comment on above: Performed By: #### C BC #### [facility] [address] [place] [address] Nancypatricia Piper IG # 0.03 10e3/ul Normal 0.00-0.03 [facility] Comment on above: Performed By: #### C BC #### [facility] [address] [place] [address] Nancy Veronique IG % 0.3 % Normal 0.0-0.5 [facility] Comment on above: Performed By: #### C BC #### [facility] [address] [place] [address] Nancy Veronique LYMPH # 1.7 103/ul Normal 1.2-3.8 [facility] Comment on above: Performed By: #### C BC #### [facility] [address] [place] [address] Nancy Piper Lymphocytes/100 WBC (Bld) 16.9 % Critically low 20.5-60.0 [facility] Comment on above: Performed By: #### C BC #### [facility] [address] [place] [address] Nancy Piper MANUAL DIFF REQ NO Normal [facility] Comment on above: Performed By: #### C BC #### [facility] [address] [place], [place] [address] Nancy Piper MCH (RBC) [Entitic mass] 30.7 pg Normal 26.7-34.0 [facility] Comment on above: Performed By: #### C BC #### [facility] [address] [place] [address] Nancypatricia Piper MCHC (RBC) [Mass/Vol] 34.1 g/dL Normal 29.9-35.2 [facility] Comment on above: Performed By: #### C BC #### [facility] [address] [place] [id number] Nancy Piper MCV (RBC) [Entitic vol] 90.2 fL Normal 81.0-99.0 [facility] Comment on above: Performed By: #### C BC #### [facility] [address] [place] [id number] Nancy Piper MONO # 0.7 103/ul Normal 0.3-0.8 [facility] Comment on above: Performed By: #### C BC #### [facility] [address] [place], [place] [address] Nancy Piper Monocytes/100 WBC (Bld) 6.5 % Normal 1.7-12.0 [facility] Comment on above: Performed By: #### C BC #### [facility] [address] [place], [place] [address] Nancy Piper NEUT # 7.6 103/ul Critically high 1.4-6.5 [facility] Comment on above: Performed By: #### C BC #### [facility] [address] [place], [place] [address] Nancy Piper Neutrophils/100 WBC (Bld) 75.2 % Critically high 43.0-75.0 [facility] Comment on above: Performed By: #### C BC #### [facility] [address] [place], [place] [address] Nancy Piper Platelet mean volume (Bld) [Entitic vol] 10.0 fL Normal 9.5-13.5 [facility] Comment on above: Performed By: #### C BC #### [facility] [address] [place], [place] [address] Nancy Veronique PLT 275 103/ul Normal 150-450 [facility] Comment on above: Performed By: #### C BC #### [facility] [address] [place], [place] [address] Nancy Veronique RBC 4.07 106/ul Critically low 4.20-5.40 [facility] Comment on above: Performed By: #### C BC #### [facility] [address] [place], [place] [address] Nancypatricia Piper WBC 10.2 103/ul Normal 4.0-11.0 [facility] Comment on above: Performed By: #### C BC #### [facility] [address] [place], [place] [address] Nancypatricia Piper GLYCOHEMOGLOBIN A1Con 2020 ADA RECOMMENDATION ADA THERAPEUTIC TARGET 6.0 - 7.0 ACTION SUGGESTED > 7.0 Normal [facility] Comment on above: Performed By: #### A 1C #### [facility] [address] [place] [phone] Nancy Veronique Glucose [Mass/Vol] 91 mg/dL Normal [facility] Comment on above: Performed By: #### A 1C #### [facility] [address] [place] [address] Nancypatricia Piepr HbA1c (Bld) [Mass fraction] 4.8 % Normal <=6.0 [facility] Comment on above: Performed By: #### A 1C #### [facility] [address] [place] [phone] Nancypatricia Piper PREG QUANT HCGon 05-16-2021 HCG QUANT 71028 mIU/mL Normal [facility] Comment on above: Result Comment: Dilu mara Performed By: #### Nora SALINAS #### [facility] [address] [place] [phone] Nancy Veronique HCG RANGE SEE BELOW Normal [facility] Comment on above: Result Comment: 5-50 0-1 WEEK 40-300 1-2 WEEKS 100-1,000 2-3 WEEKS 500-6,000 3-4 WEEKS 5,000-200,000 1-2 MONTHS 10,000-100,000 2-3 MONTHS 3,000-50,000 2ND TRIMESTER 1,000-50,000 3RD TRIMESTER Performed By: #### Nora SALINAS #### [facility] [address] [place], [place] [address] Nancy Veronique TYPE AND SCREENon 05-16-2021 TYPE AND SCREEN Negative Normal [facility] Comment on above: Performed By: #### R PRQ #### [facility] [address] [place] [address] Nancy Piper US PREG TVon 04-18-2021 US PREG TV EXAMINATION: US PREG TV HISTORY: Secondary physiologic amenorrhea COMPARISON: No relevant comparison available. FINDINGS: Transvaginal images Christine intrauterine gestation Gestational sac: 2.65 cm, 7 weeks 3 days CRL: 2.02 cm, 8 weeks 4 days Yolk sac: 0.37 cm Heart rate: 174 bpm Other: Adjacent to the gestational sac is a 1.4 x 0.5 x 1.6 cm area of curvilinear hypoechogenicity Cervix: Closed, 4.1 cm Clinical age: 8 weeks 0 days Clinical ÁLVARO: 11/28/2019 Ultrasound age: 8 weeks 0 days Ultrasound ÁLVARO: 11/28/2021 IMPRESSION: Viable christine intrauterine gestation measuring 8 weeks 0 days 1.4 cm subchorionic hematoma Electronically authenticated by: CHELITA CARDENAS Date: 2021-04-18 12:02 Normal [facility] Vital Signs Date Time Vital Sign Value Performing Clinician Nathani litana 10-06-2021 09:06-0500 Body temperature 98.2 [degF] Elvia Donis DO Work Phone: [employer] 10-06-2021 09:06-0500 Diastolic blood pressure 74 mm[Hg] Elvia Donis DO Work Phone: [employer] 10-06-2021 09:06-0500 Heart rate 84 /min Elvia Donis DO Work Phone: [employer] 10-06-2021 09:06-0500 Respiratory rate 17 /min Elvia Donis DO Work Phone: [employer] 10-06-2021 09:06-0500 SaO2% (BldA) [Mass fraction] 99 % Elvia Donis DO Work Phone: [employer] 10-06-2021 09:06-0500 Systolic blood pressure 121 mm[Hg] Elvia Donis DO Work Phone: [employer] 10-05-2021 18:40-0500 Body height 157.5 cm Elvia Donis DO Work Phone: [employer] 10-05-2021 18:40-0500 Body mass index (BMI) [Ratio] 30.36 kg/m2 Elvia Gagandeep DO Work Phone: [facility] 10-05-2021 18:40-0500 Body weight 75.3 kg Elvia Donis DO Work Phone: [facility] Encounters Encounter Date Encounter Type Care Provider Facility Start: 04-23-2024 End: 04-23-2024 ambulatory RADHA JOVANNI Not Available Start: 04-22-2024 ambulatory RECREATION PROGRAM COORDINATOR Yola Bergeron Nicol Facil ity:[facility] Start: 03-19-2024 End: 03-19-2024 ambulatory RADHA JOVANNI Not Available Start: 11-12-2023 End: 11-12-2023 ambulatory RADHA JOVANNI Not Available Start: 05-07-2023 ambulatory RECREATION PROGRAM COORDINATOR Yola Nicol Facilit y:[facility] Start: 04-24-2022 End: 04-24-2022 Off-Site Anaeber Em [facility] Start: 03-22-2022 End: 03-22-2022 Off-Site Ana Kristinela [facility] Start: 11-09-[address] DOCTOR BURGOS Facility :[facility] Start: 11-06-2021 End: 11-06-[address] RADHA HOOVER Facility:[facility] Start: 11-03-2021 End: 11-03-[address] RADHA HOOVER Facility:[facility] Start: 11-02-2021 End: 11-02-[address] CHELITA CARDENAS Facility:[facility] Start: 10-30-2021 End: 10-30-[address] PEG LACEY Facility:[facility] Start: 10-26-2021 End: 10-26-[address] CHELITA CARDENAS Facility:[facility] Start: 10-24-2021 End: 10-25-2021 [facility] Start: 10-19-2021 End: 10-19-[address] PEG LACEY Facility:[facility] Start: 10-12-2021 End: 10-12-[address] PEG LACEY Facility:[facility] Start: 10-06-2021 End: 10-06-[address] RADHA HOOVER Facility:[facility] Start: 10-05-2021 End: 10-06-2021 ambulatory ELVIA Elena [facility] Start: 10-05-2021 End: 10-06-2021 Subsequent hospital visit by physician Elvia Donis DO Work Phone: [email or web address] Start: 10-05-2021 End: 10-05-[address] RADHA HOOVER Facility:[facility] Start: 09-05-2021 End: 09-06-2021 ambulatory MARTIN SIERRA Facility:[facility] Start: 07-17-2021 End: 07-18-[address] FERN CALZADA Facility:[facility]1 Start: 05-18-2021 End: 05-18-2021 ambulatory MARTIN SIERRA Facility:[facility] Start: 05-16-2021 End: 05-17-2021 ambulatory MARTIN SIERRA Facility:[facility]1 Start: 04-18-2021 End: 04-19-[address] CHELITA CARDENAS Facility:[facility] Start: 02-08-2021 End: 02-09-[address] BRAMBILA LISTED REQUEST Facility:[facility]1 Procedures Date Procedure Procedure Detail Performing Clinician Start: 10-05-2021 Antibody screen Elvia nielsen DO Work Phone: Start: 10-05-2021 Assay of free thyroxine Ellis Colmenares DO Work Phone: Start: 10-05-2021 Blood typing serolog ic abo Ellis Colmenares DO Work Phone: Plan of Treatment Date Care Activity Detail Author Start: 12-03-2027 DTaP/Tdap/Td vaccine (2 - Td or Tdap) DTaP/Tdap/Td vaccine (2 - Td or Tdap) [facility] Start: 08-10-2021 COVID-19 Vaccine (3 - Booster for Pfizer series) COVID-19 Vaccine (3 - Booster for Pfizer series) [facility] Start: 06-14-2021 Influenza vaccination Flu vaccine (# 1) [employer] Start: 2019 Screening for malign ant neoplasm of cervix [employer] Start: 2010 Screening for malign ant neoplasm of cervix Pap smear [employer] Start: 2004 HIV screening HIV screen [facility] Start: 1990 Varicella vaccine (1 of 2 - 2-dose childhood series) Varicella vaccine (1 of 2 - 2-dose childhood series) [employer] Start: 1989 Hepatitis C screening Hepatitis C sc reen [employer] End: 10-06-2021 MISCELLANEOUS TESTING MISCELLANEOUS TESTING Lab STAT Once for 1 Occurrences starting 10/06/2021 until 10/06/2021 [email or web address] Phone: Comment on above: Once for 1 Occurrenc es starting 10/06/2021 until 10/06/2021 Nonrebreather mask oxygen Nonreb reather mask oxygen Respiratory Care Routine As directed - RT (PRN) until discontinued starting 10/05/2021 [email or web address] Phone: Comment on above: As directed - RT (AL N) until discontinued starting 10/05/2021 End: 10-05-2021 SJOGRENS SYNDROME-A EXTRACTABLE NUCLEAR ANTIBODY [email or web address] Phone: Comment on above: One Time for 1 Occur rences starting 10/05/2021 until 10/05/2021 End: 10-05-2021 SJOGRENS SYNDROME-B EXTRACTABLE NUCLEAR ANTIBODY [email or web address] Phone: Comment on above: One Time for 1 Occur rences starting 10/05/2021 until 10/05/2021 Immunizations Immunization Date Immunization Notes Care Provider Giovany hargrove 10-19-2021 influenza virus vaccine, unspecified formulation Ana Gudimella [facility] 10-19-2021 tetanus toxoid, redu garry diphtheria toxoid, and acellular pertussis vaccine, adsorbed Ana Gudimella [facility] 02-08-2021 SARS-CoV-2 (COVID-19 ) mRNA BNT-162b2 vax Ana Gudimella [facility] 01-18-2021 SARS-CoV-2 (COVID-19 ) mRNA BNT-162b2 vax Ana Gudimella [facility] 08-26-2020 influenza, unspecifi ed formulation Ana Gudimella [facility] Payers Date Payer Category Payer Unknown [id number] 1989 Unknown [id number] 2.16.8 [id number] 1989 Unknown [id number] 2.16.8 40.1.537762.3.579.2.175 1989 Unknown [id number] 2.16.84 0.1.433602.3.579.2.593 1989 Unknown [id number] 2.16.84 0.1.228119.3.579.2.593 1989 Unknown [id number] 2.16.84 0.1.911025.3.579.2.593 1989 Unknown [id number] 2.16.84 0.1.032777.3.579.2.593 1989 Unknown [id number] 2.16.84 0.1.066764.3.579.2.593 1989 Unknown [id number] 2.16.84 0.1.918840.3.579.2.593 1989 Unknown [id number] 2.16.84 0.1.860107.3.579.2.593 1989 Unknown [id number] 2.16.84 0.1.487157.3.579.2.593 1989 Unknown [id number] 2.16.84 0.1.062599.3.579.2.593 1989 Unknown [id number] 2.16.84 0.1.739800.3.579.2.593 1989 Unknown [id number] 2.16.84 0.1.010943.3.579.2.593 1989 Unknown [id number] 2.16.84 0.1.183022.3.579.2.593 1989 Unknown [id number] 2.16.84 0.1.222600.3.579.2.593 1989 Unknown [id number] 2.16.84 0.1.238465.3.579.2.593 1989 Unknown [id number] 2.16.84 0.1.363464.3.579.2.593 1989 Unknown [id number] 2.16.8 40.1.320000.3.579.2.727 1989 Unknown [id number] 2.16.8 40.1.794065.3.579.2.727 1989 Unknown [id number] 2.16.84 0.1.722012.3.579.2.1259 1989 Unknown [id number] 2.16.84 0.1.263616.3.579.2.1259 1989 Unknown [id number] 2.16.84 0.1.850225.3.579.2.1259 1959 Self-pay Unknown [id number] 2.16.84 0.1.043588.3.579.2.593 Social History Date Type Detail Facility Start: 10-05-2021 End: 03-22-2022 Tobacco smoking status MOIS Never smoked tobacco [email or web address] Phone: Start: 10-05-2021 Tobacco use and exposure Smokeless tobacco non-user [employer] Work Phone: Start: 10-05-2021 Alcohol intake Ex-drinker (finding) [employer] Work Phone: Start: 03-07-2021 [employer] [facility] Work Phone: Start: 1990 [facility] Tobacco smoking status Never [facility] Sex Assigned At Female [facility] Functional Status Date Assessment Result Facility 04-24-2022 Functional Status Telehealth Patient [facility] Hospital Discharge instructions 03-22-2022 Note Date & Type Note Facility 03-22-2022 Hospital Discharg e instructions Follow Up Care 03/22/2022 14:50:25 With:Ana Em MD, FAM, MED Address: [address] [place], [place] [phone]- [phone] Business (1) When:Within 3 Month(s) [facility] Hospital Discharge instructions 03-14-2022 Note Date & Type Note Facility 03-14-2022 Hospital Discharg e instructions Follow Up Care 03/14/2022 16:26:08 With:Ana Em MD, FAM, MED Address: [address] [place] [phone] [phone] Business (1) When:Within 1 Month(s) [facility] Hospital Discharge instructions 10-06-2021 Instructions Note Date & Type Note Facility 10-06-2021 Hospital Discharg e instructions Daria Evans DO - 10/06/2021 Images from the original note were not included. Learning About Low Amniotic Fluid What is low amniotic fluid? Low amniotic fluid means that there is too little fluid around your baby in the uterus during . Having a low amount of this fluid can affect how the baby grows. It may lead to problems during labor and delivery. Amniotic fluid protects your baby from being bumped or hurt as you move your body. And it keeps your baby at a healthy temperature. The fluid helps your baby move around in the uterus. What causes low amniotic fluid? In many cases, the cause of low amniotic fluid may not be found. But causes may include: A health problem you have, such as high blood pressure. A problem with the placenta. This is a large organ that grows in your uterus during . It supplies your baby with nutrients and oxygen through the umbilical cord. Some medicines. A problem with the baby's kidneys or urinary tract. What are the symptoms of low amniotic fluid? Some of the symptoms may include: Fluid leaking from your vagina. Your uterus not growing as expected. This means that the size of your belly is not as large as it should be, as measured from top to bottom by your doctor. Your baby's movements slowing down. How is low amniotic fluid diagnosed? Doctors use ultrasound to measure the amount of amniotic fluid in your uterus. How is low amniotic fluid treated? If you're near the end of your , you may not need treatment. Depending on what's causing the problem and how close you are to delivery, your doctor may want to try to start (induce) labor. You may also be asked to drink more water. Or you may be given fluids through an intravenous (IV) needle into a vein. Your doctor may want to see you more often. Follow-up care is a hernandez part of your treatment and safety. Be sure to make and go to all appointments, and call your doctor if you are having problems. It's also a good idea to know your test results and keep a list of the medicines you take. Where can you learn more? Go to [email or web address] and sign in to your e-Tag account. Enter A006 in the Search Health Information box to learn more about Learning About Low Amniotic Fluid. If you do not have an account, please click on the Sign Up Now link. Current as of: March 29, 2021 Content Version: 13.1 [employer]. Care instructions adapted under license by [employer]. If you have questions about a medical condition or this instruction, always ask your healthcare professional. [employer] disclaims any warranty or liability for your use of this information. documented in this encounter [email or web address] Phone: History of Present illness Narrative 10-06-2021 Daria Evans DO - 10/06/2021 1:35 PM Ammon Evans, - 10/06/2021 10:06 AM Kandi Yarbrough RN - 10/06/2021 7:00 AM Zunilda Colmenares DO - 10/06/2021 5:35 AM EST Note Date & Type Note Facility 10-06-2021 History of Present illness Narrative Obstetric/Gynecology Resident Interval Note In to see the patient with Dr. Guevara at the bedside. Discussed coordination of care and plan. Reviewed MFM scan and Peds Cardio scan with the patient and her . Patient and verbalized understanding and agreement with plan of care. Also performed pelvic exam to rule out rupture. Pooling/Valsalva negative. Amnisure negative. No abnormalities on exam. Patient will get second dose of celestone at [facility]. Follow up with MFM on Saturday. Follow up with peds cardio in 1-2 weeks. Follow up with Dr. Hoover in one week. Attending in agreement with plan of care. Daria Evans DO SOFTWARE TEST [employer] VALIDATION ENGINEER Resident, PGY3 [place], [place] 10/06/2021, 1:35 PM Maternal Medicine Ultrasound Interval Note Carla Mendoza is a 31 y.o. female at 32w3d Case discussed with Dr. Guevara and Dr. Hermosillo. MFM Sono Report (Verbal): breech, posterior, left lateral placenta, BPP 8/8, oligohydramnios, no evidence of hydrops, middle cerebral artery dopplers wnl. Plan: discharge after second dose of celestone pending heart tracing and maternal/ status. Peds cardiology to see the patient. Follow up with [facility] outpatient on Tuesday 10/09 Dr. Guevara updated, OB Residents updated, RN updated. Daria Evans DO Registered Associate Resident 10/06/2021, 10:06 AM Pt c/o headache related to lack of sleep or hunger, tylenol given SOFTWARE TEST AND VALIDATION ENGINEER PROGRESS NOTE Carla Mendoza is a 31 y.o. female at 32w3d, Hospital Day: 2 Subjective: Patient has been seen and examined. Patient is resting comfortably with no complaints. The patient reports movement is present, denies contractions, denies loss of fluid, denies vaginal bleeding. Patient denies headache, vision changes, nausea, vomiting, fever, chills, shortness of breath, chest pain, RUQ pain, abdominal pain, diarrhea, change in color/amount/odor of vaginal discharge, dysuria or, hematuria. Objective: Vitals: Vitals: 10/05/21 2100 10/05/21 2206 10/05/21 2300 10/06/21 0040 BP: 130/71 123/68 Pulse: 85 84 Resp: 16 16 Temp: 97.9 F (36.6 C) 98.3 F (36.8 C) TempSrc: Oral Oral SpO2: 99% 97% 98% 100% Weight: Height: FHT: 130, moderate variability, accelerations present, decelerations absent. arrhythmia noted with portions of tracing where heart rate drops to 50-70 and spontaneously resolves Contractions: none Physical Exam: General appearance: no apparent distress, alert and cooperative HEENT: head atraumatic, normocephalic, moist mucous membranes, trachea midline Neurologic: alert, oriented, normal speech, no focal findings or movement disorder noted Lungs: No increased work of breathing, good air exchange, clear to auscultation bilaterally, no crackles or wheezing Heart: regular rate and rhythm and no murmur Abdomen: soft, gravid, non-tender, no rebound, guarding, or rigidity, no RUQ or epigastric tenderness, no signs or symptoms of abruption and no signs or symptoms of chorioamnionitis Extremities: no calf tenderness, non edematous Musculoskeletal: Gross strength equal and intact throughout, no gross abnormalities, range of motion normal in hips, knees, shoulders and spine Psychiatric: Mood appropriate, normal affect Rectal Exam: not indicated Pelvic Exam: not indicated DATA: Recent Results (from the past 24 hour(s)) CBC WITH AUTO DIFFERENTIAL Collection Time: 10/05/21 8:21 PM Result Value Ref Range WBC 6.7 3.5 - 11.3 k/uL RBC 3.29 (L) 3.95 - 5.11 m/uL Hemoglobin 10.3 (L) 11.9 - 15.1 g/dL Hematocrit 30.1 (L) 36.3 - 47.1 % MCV 91.5 82.6 - 102.9 fL MCH 31.3 25.2 - 33.5 pg MCHC 34.2 28.4 - 34.8 g/dL RDW 13.6 11.8 - 14.4 % Platelets 265 138 - 453 k/uL MPV 9.8 8.1 - 13.5 fL NRBC Automated 0.0 0.0 per 100 WBC Differential Type NOT REPORTED Seg Neutrophils 65 36 - 65 % Lymphocytes 26 24 - 43 % Monocytes 8 3 - 12 % Eosinophils % 1 1 - 4 % Basophils 0 0 - 2 % Immature Granulocytes 0 0 % Segs Absolute 4.35 1.50 - 8.10 k/uL Absolute Lymph # 1.73 1.10 - 3.70 k/uL Absolute Wilkinson # 0.52 0.10 - 1.20 k/uL Absolute Eos # 0.05 0.00 - 0.44 k/uL Basophils Absolute <0.03 0.00 - 0.20 k/uL Absolute Immature Granulocyte 0.03 0.00 - 0.30 k/uL WBC Morphology NOT REPORTED RBC Morphology NOT REPORTED Platelet Estimate NOT REPORTED TYPE AND SCREEN Collection Time: 10/05/21 8:21 PM Result Value Ref Range Expiration Date 10/08/2021,2359 Arm Band Number [id number] ABO/Rh O POSITIVE Antibody Screen NEGATIVE TSH without Reflex Collection Time: 10/05/21 8:21 PM Result Value Ref Range TSH 1.94 0.30 - 5.00 mIU/L T4, FREE Collection Time: 10/05/21 8:21 PM Result Value Ref Range Thyroxine, Free 1.04 0.93 - 1.70 ng/dL Assessment/Plan: Carla Mendoza is a 31 y.o. female at 32w3d IUP admitted for extended monitoring due to suspected arrhythmia - GBS unknown / Rh positive / R immune - No indication for GBS prophylaxis unless delivery imminent - CBC, T&S obtained - SSA, SSB pending - TSH and T4 wnl - NIPT collected - S/p Celestone x1, next @2041 - IV Access-patient declined - FHT currently category 1 with intermittent areas of FHT in 50-70ss with spontaneous resolution - PNV, ASA81 daily - Gen Diet - MFM ultrasound 10/05 demonstrates BPP 05/21 with CHERELLE 4cm, plan for repeat MFM scan this AM - Peds Cardio Consult this AM - Continuous monitoring Exposure to SSRI - echo completed 10/05, normal other than arrhythmia - Plan for inpatient pediatric cardiology consultation this AM Oligohydramnios/Elevated MCAs - Labs, NIPT collected - Repeat MFM scan this AM Hx PreE - Previous at term Anxiety/ADHD - Currently taking Zoloft 25mg daily - Denies SI/HI - Admits to good support Anemia - Hgb of 10.3 on admission - Vitals stable, asyptomatic BMI 30 Patient Active Problem List Diagnosis Date Noted 32 weeks gestation of 10/05/2021 Arrhythmia 10/05/2021 Overview Note: PACs, echo otherwise ok Late Transfer of Care 10/05/2021 Exposure to SSRI 10/05/2021 Oligohydramnios 10/05/2021 Overview Note: CHERELLE 4.3 on 10/05/21 Hx PreE 10/05/2021 Celestone 10/05/21 & 10/05/2021 Elevated MCAs 10/05/2021 Anxiety/ADHD 10/05/2021 Overview Note: zoloft 25 daily Will update attending physician. Ellis Colmenares DO Registered Associate Resident 10/06/2021, 5:35 AM documented in this encounter [email or web address] Phone: Evaluation + Plan note Note Date & Type Note Facility Evaluation + Plan note Future Appointments Appointment Date:04/24/2022 01:20:00 PM Scheduled Provider:Ana Em MD Location:[facility] Appointment Type:FM Video Visit [facility] Evaluation note Note Date & Type Note Facility Evaluation note Diagnosis 32 weeks gestation of state, incidental Arrhythmia Abnormality in heart rate/rhythm, antepartum condition or complication Late Transfer of Care; Celestone 10/05/21 & Unspecified high-risk Exposure to SSRI Unspecified noxious substance affecting fetus or via placenta or breast milk Oligohydramnios Oligohydramnios, antepartum Hx PreE Elevated MCAs>resolved Abnormal findings on screening Anxiety/ADHD Anxiety state, unspecified Breech presentation, no version Breech presentation without mention of version, unspecified as to episode of care documented in this encounter [employer] Work Phone: Hospital course Narrative Note Date & Type Note Facility Hospital course Narrative No data available for this section [facility] Progress note Note Date & Type Note Facility Progress note No data available for this section [facility] Advance Directives No Advanced Directives Records FoundLatest Code Status on File Code Status Date Activated Date Inactivated Comments Full Code 10/05/2021 7:44 PM Summary Purpose Family History No Family History Records FoundNo Family History Records FoundNo Family History Records FoundNo Family History Records Found Additional Source Comments Reason for Visit (unrecogniz ed section and content) Reason Comments Other oligo, arrhyth arelis from [facility] Scheduled Active and Recently Administ ered Medications (unrecognized section and content) Medication Order 10/04/2021 10/05/2021 10/06/2021 aspirin EC tablet 81 mg 81 mg, Oral, DAILY, First dose on Sat10/06/21 at 0900, Do not crush or break. 916 (Given - Provid er: Juliana Hamm RN) betamethasone acetate-betamethasone sodium phosphate (CELESTONE) injection 12 mg 12 mg, IntraMUSCular, EVERY 24 HOURS, First dose on Sat10/05/21 at 2000, For 2 doses 2042 (Given - Provider: Rojas Stanton, CAL[place]) 1999 (Due) vitamin plus iron 29-1 MG tablet 1 tablet 1 tablet, Oral, DAILY, First dose on Sat10/06/21 at 0900 0917 (Given - Provid er: Juliana Hamm, [place]) sertraline (ZOLOFT) tablet 25 mg 25 mg, Oral, DAILY, First dose on Sat10/06/21 at 0900 0917 (Given - Provid er: Juliana Hamm RN) PRN Medication Order 10/04/2021 10/05/2021 10/06/2021 acetaminophen (TYLENOL) tablet 1,000 mg 1,000 mg, Oral, EVERY 6 HOURS PRN, Pain Mild (1-3), Pain Mild (1-3) or Fever greater than 100.5 F (38 C), Starting on Azucena 10/05/21 at 194, Maximum dose of acetaminophen is 4000 mg from all sources in 24 hours. 0659 (Given - Provid er: Radha Yarbrough RN) ondansetron (ZOFRAN) injection 4 mg(Linked Group 1) 4 mg, IntraVENous, EVERY 6 HOURS PRN, Nausea, Vomiting, Starting on Azucena 10/05/21 at 194, Administer if oral route cannot be used. ondansetron (ZOFRAN-ODT) disintegrating tablet 4 mg(Linked Group 1) 4 mg, Oral, EVERY 8 HOURS PRN, Nausea, Vomiting, Starting on Azucena 10/05/21 at 1941 Linked Groups Order Group 1: ondansetron (ZOFRAN-ODT) disintegrating tablet 4 mgJump to med 4 mg, Oral, EVERY 8 HOURS PRN, Nausea, Vomiting, Starting on Azucena 10/05/21 at 194 Or ondansetron (ZOFRAN) injection 4 mgJump to med 4 mg, IntraVENous, EVERY 6 HOURS PRN, Nausea, Vomiting, Starting on Azucena 10/05/21 at 194
Administer if oral route cannot be used.
Care Teams (unrecognized sec tion and content) Senior Mainframe Developer Relationship Specialty Start Date End Date Augie Pedroza MD [address] [id number] PCP - General Family Medicine 10/05/21 INFORMATION SOURCE (unrecogn ized section and content) DATE CREATED AUTHOR 11/08/2021 [facility] DATE CREATED AUTHOR AUTHOR'S ORGANIZ ATION 01/22/2022 [facility] DATE CREATED AUTHOR AUTHOR'S ORGANIZ ATION 04/28/2024 [facility] DATE CREATED AUTHOR AUTHOR'S ORGANIZ ATION 04/29/2024 [facility] dicfl Specialists [facility] FOR RECORDS PERTAINING TO PATIENTS WHO ARE OR HAVE BEEN ENROLLED IN A CHEMICAL DEPENDENCY/SUBSTANCEABUSE PROGRAM, SOME INFORMATION MAY BE OMITTED. This clinical summary was aggregated from multiple sources. Caution should be exercised in using it in the provision of clinical care. This summary normalizes information from multiple sources, and as a consequence, information in this document may materially change the coding, format and clinical context of patient data. In addition, data may be omitted in some cases. CLINICAL DECISIONS SHOULD BE BASED ON THE PRIMARY CLINICAL RECORDS. [facility] [employer] [facility]. provides no warranty or guarantee of the accuracy or completeness of information in this document.
== END 2024-05-21 20:33 | disposition home or self-care (01) ==
LOC: LAB 20:32
PROVIDERS: PCP Nurse Practitioner; Visit Provider Obstetrics & Gynecology
DX: Z01.419 Encounter for gynecological examination (general) (routine) without abnormal findings (principal)
CPT/HCPCS: 87624; 88175

== ENCOUNTER 2024-06-17 08:06 | Outpatient (OUT) | payer OTHER, SELFPAY ==
--- NOTE | 2024-06-17 08:07 | US_ITS ---
[address] [address] Patient Name: JUAN FRANCISCO MENDOZA MRN: [id number] date: 1990 Sex: F Assigned Patient Location: [facility] Current Patient Location: LAB Accession/Order Number: [id number] Exam Date: 06/17/2024 08:09 Report Date: 06/17/2024 10:23 At the request of: RADHA BAIG Procedure: US OB cervical length EXAMINATION: US OB anatomy, US OB cervical length HISTORY: anatomic survey COMPARISON: No relevant comparison available. TECHNIQUE: Transabdominal sonographic examination was performed for obstetrical and evaluation. FINDINGS: Number: 1 Heart Rate: 139.90 bpm H.B. /min Amniotic Fluid Volume: Subjectively normal Placental Location: Posterior with lower margin 7.5 cm from os. Cervix Length: 5.49 cm ; closed. ANATOMY: Normal Structures -cerebellum, choroid plexus, cisterna magna, lateral cerebral ventricles, orbits, midline falx, hard palate, four-chamber heart, RVOT, LVOT, stomach, kidneys, bladder, umbilical cord insertion into abdomen, three-vessel cord, cervical spine, thoracic spine, lumbar spine, sacral spine, right upper extremity, left upper extremity, right lower extremity, left lower extremity. SUBOPTIMALLY SEEN: None ABNORMALITIES: None BIOMETRY: BPD: 5.65 cm; 23 weeks 2 days; 93.60 % HC: 20.90 cm; 23 weeks 0 days; 86.60 % AC: 19.24 cm; 24 weeks 0 days; 95.60 % FL: 3.69 cm; 21 weeks 5 days; 41.50 % EFW:554.48 g; 96 % FL/AC: 19.20 FL/BPD: 65.35 HC/AC: 1.09 GESTATIONAL AGE: Age by EDC: 21 weeks 5 days Age by current US: 23 weeks 0 days ÁLVARO by current US: 2024-10-14 ÁLVARO by EDC: 2024-10-23 US/US OB cervical length IMPRESSION: 1. Single live intrauterine with growth detailed above. Electronically authenticated by: FERN CALZADA Date: 06/17/2024 10:23
--- NOTE | 2024-06-17 08:07 | US_ITS ---
[address] [address] Patient Name: JUAN FRANCISCO MENDOZA MRN: [id number] date: 1990 Sex: F Assigned Patient Location: [facility] Current Patient Location: LAB Accession/Order Number: [id number] Exam Date: 06/17/2024 08:09 Report Date: 06/17/2024 10:23 At the request of: RADHA BAIG Procedure: US OB anatomy EXAMINATION: US OB anatomy, US OB cervical length HISTORY: anatomic survey COMPARISON: No relevant comparison available. TECHNIQUE: Transabdominal sonographic examination was performed for obstetrical and evaluation. FINDINGS: Number: 1 Heart Rate: 139.90 bpm H.B. /min Amniotic Fluid Volume: Subjectively normal Placental Location: Posterior with lower margin 7.5 cm from os. Cervix Length: 5.49 cm ; closed. ANATOMY: Normal Structures -cerebellum, choroid plexus, cisterna magna, lateral cerebral ventricles, orbits, midline falx, hard palate, four-chamber heart, RVOT, LVOT, stomach, kidneys, bladder, umbilical cord insertion into abdomen, three-vessel cord, cervical spine, thoracic spine, lumbar spine, sacral spine, right upper extremity, left upper extremity, right lower extremity, left lower extremity. SUBOPTIMALLY SEEN: None ABNORMALITIES: None BIOMETRY: BPD: 5.65 cm; 23 weeks 2 days; 93.60 % HC: 20.90 cm; 23 weeks 0 days; 86.60 % AC: 19.24 cm; 24 weeks 0 days; 95.60 % FL: 3.69 cm; 21 weeks 5 days; 41.50 % EFW:554.48 g; 96 % FL/AC: 19.20 FL/BPD: 65.35 HC/AC: 1.09 GESTATIONAL AGE: Age by EDC: 21 weeks 5 days Age by current US: 23 weeks 0 days ÁLVARO by current US: 2024-10-14 ÁLVARO by EDC: 2024-10-23 US/US OB anatomy IMPRESSION: 1. Single live intrauterine with growth detailed above. Electronically authenticated by: FERN CALZADA Date: 06/17/2024 10:23
--- OUTSIDE RECORDS SUMMARY | 2024-06-17 08:14 | XMS_ITS | CCD ---
Author Organization [facility] Care Team Providers Care Life Skills Trainer Name Role Phone Augie Pedroza MD Primary Care Provider [phone] ELVIA DONIS Admitting Unavailable ELVIA DONIS Attending Unavailable AUGIE PEDROZA Primary Care Unavailable KI ELAL Consulting Unavailable AUGIE PEDROZA Referring Unavailable AUGIE [...] Consulting Unavailable Ana Em Primary Care Physician [facility])[phone] Nicol, TOSHA Bergeron Attending Unavailable JOVANNI, RADHA Attending Unavailable JOVANNI, RADHA Attending Unavailable JOVANNI, [...] q24hr, # 90 tab(s), Refills(s) 2, Pharmacy: [facility], 157.4, cm, 04/24/22 13:18:00 EDT, Height/Length Dosing, 72, kg, 03/22/22 14:14:00 EDT, Weight Dosing Start Date: 04/24/22 Status: Ordered Start: 03-22-2022 take 1 tablet by myah th every twenty-four hours Wellbutrin XL 150 mg/24 hours Tab-ER 150 mg = 1 tab(s), Oral, q24hr, # 30 tab(s), Refills(s) 0, Pharmacy: [facility], 157.4, cm, 03/22/22 14:14:00 EDT, [...] conditions (2 sources) exposure to drug; Translations: [Parlin affected by maternal noxious substance, unspecified] Onset: [...] Episodic Unclassified (1 source) Patient encounter status 03-22-2022 Past or Other Problems Problem Classification Problem [...] - Ultrasound Reporton RAD - Ultrasound Report [id number] Normal [facility] GROUP B STREP CULTUREon 10-15 S. agalactiae Ag Ql (Unsp spec) Culture Observations: NEGATIVE FOR GROUP B STREPTOCOCCUS. Normal [facility] Comment on above: Performed By: #### R PRQ #### [facility] [address] [place] [address] Nancy Piper US PREG BIOPHY W NON [...] by: CHELITA CARDENAS Date: 2021-11-02 13:37 Normal [facility] US PREG BIOPHY W NON STRESSo n [...] by: CHELITA CARDENAS Date: 2021-10-26 14:34 Normal [facility] US PREG BIOPHY W NON STRESSo n [...] by: FERN CALZADA Date: 2021-10-19 14:42 Normal [facility] US PREG BIOPHY W NON STRESSo n [...] by: FERN CALZADA Date: 2021-10-12 13:32 Normal [facility] 10-09-2021 Send Out Report FOR[facility] TO [facility] Comment on above: Performed By: #### C MIS #### [place] [id number] Toy Stuffer: Mark Hernadez MD [facility] [place] 10-09-2021 SSA <0.3 Normal <7.0 [facility] Comment on above: Result Comment: Reference Range: <7.0 Negative 7.0-10.0 Equivocal >10.0 Positive Performed By: #### C DP, FT4, TSH, SSARO, SSBLA #### [address] [phone] Toy Stuffer: Mark Hernadez MD [facility] 10-09-2021 SSB <0.3 Normal <7.0 [facility] Comment on above: Result Comment: Reference Range: <7.0 Negative 7.0-10.0 Equivocal >10.0 Positive Performed By: #### C DP, FT4, TSH, SSARO, SSBLA #### [address] [phone] Toy Stuffer: Mark Hernadez MD [facility] 10-06-2021 Test Name [facility] Comment on above: Performed By: #### C MIS #### [address] [place] [address] Toy Stuffer: Mark Hernadez MD CBC WITH AUTO DIFFERENTIALon 10-05-2021 Absolute Eos # 0.05 [facility] th Absolute Immature Granulocyte 0.03 [facility] Absolute Lymph # 1.73 [facility] He alth Absolute [place] # 0.52 [facility] Hea lth Basophils (Bld) [#/Vol] 10*3/uL [employer] Basophils/100 WBC (Bld) 0 % 0 - 2 % [employer] Differential Type NOT REPORTED [employer] Eosinophils/100 WBC (Bld) 1 % 1 - 4 % [employer] Hematocrit (Bld) [Volume fraction] 30.1 % Low 36.3 - 47.1 % [employer] Hemoglobin.gastrointe stinal spec 1 Ql (Stl) 10.3 g/dL Low 11.9 - 15.1 g/dL [employer] Immature granulocytes/100 WBC (Bld) 0 % 0 [employer] Interpretation and review of laboratory results Abnormal [employer] Lymphocytes/100 WBC (Bld) 26 % 24 - 43 % [employer] MCH (RBC) [Entitic mass] 31.3 pg 25.2 - 33.5 pg [employer] MCHC (RBC) [Mass/Vol] 34.2 g/dL 28.4 - 34.8 g/dL [employer] MCV (RBC) [Entitic vol] 91.5 fL 82.6 - 102.9 fL [employer] Monocytes/100 WBC (Bld) 8 % 3 - 12 % [employer] NRBC Automated 0.0 0.0 per 100 WBC [employer] Platelet distribution width (Bld) [Ratio] 13.6 % 11.8 - 14.4 % [employer] Platelet Estimate NOT REPORTED [employer] Platelet mean volume (Bld) [Entitic vol] 9.8 fL 8.1 - 13.5 fL [employer] Platelets (Bld) [#/Vol] 265 10*3/uL [employer] RBC (Bld) [#/Vol] 3.29 10*6/uL Low 3.95 - 5.1 1 m/uL [employer] RBC (Bld) [#/Vol] NOT REPORTED [facility] neutrophils/100 WBC (Bld) 65 % 36 - 65 % [employer] Segs Absolute 4.35 [facility] WBC (Bld) [#/Vol] 6.7 10*3/uL [facility] WBC (Bld) [#/Vol] NOT REPORTED [facility] CBC with Diffon 10-05-2021 Abs. Basophil <0.03 Normal 0.00-0.20 [facility] Comment on above: Performed By: #### C DP, FT4, TSH, SSARO, SSBLA #### [address] [address] Toy Stuffer: Mark Hernadez MD Abs.Imm.Granulocyte 0.03 k/uL Normal 0.00-0.30 [facility] Comment on above: Performed By: #### C DP, FT4, TSH, SSARO, SSBLA #### [address] [address] Toy Stuffer: Mark Hernadez MD Abs.Neutrophil (Seg) 4.35 k/uL Normal 1.50-8.10 [facility] Comment on above: Performed By: #### C DP, FT4, TSH, SSARO, SSBLA #### [address] [address] Toy [employer]uffer: Mark Hernadez MD Basophils/100 WBC (Bld) 0 % Normal 0-2 [facility] Comment on above: Performed By: #### C DP, FT4, TSH, SSARO, SSBLA #### [address] [address] Toy Stuffer: Mark Hernadez MD Eosinophils (Bld) [#/Vol] 0.05 10*3/uL Normal 0.00-0.44 [facility] Comment on above: Performed By: #### C DP, FT4, TSH, SSARO, SSBLA #### [address] [address] Toy Stuffer: Mark Hernadez MD Eosinophils/100 WBC (Bld) 1 % Normal 1-4 [facility] Comment on above: Performed By: #### C DP, FT4, TSH, SSARO, SSBLA #### [address] [address] [employer]uffer: Mark Hernadez MD Erythrocyte distribution width (RBC) [Ratio] 13.6 % Normal 11.8-14.4 [facility] Comment on above: Performed By: #### C DP, FT4, TSH, SSARO, SSBLA #### [address] [address] Toy [employer]uffer: Mark Hernadez MD Hematocrit (Bld) [Volume fraction] 30.1 % Low 36.3-47.1 [facility] Comment on above: Performed By: #### C DP, FT4, TSH, SSARO, SSBLA #### [address] [address] Toy [employer]uffer: Mark Hernadez MD Hemoglobin (Bld) [Mass/Vol] 10.3 g/dL Low 11.9-15.1 [facility] Comment on above: Performed By: #### C DP, FT4, TSH, SSARO, SSBLA #### [address] [address] Toy [employer]uffer: Mark Hernadez MD Immature granulocytes/100 WBC (Bld) 0 % Normal 0 [facility] Comment on above: Performed By: #### C DP, FT4, TSH, SSARO, SSBLA #### [address] [address] Toy Stuffer: Mark Hernadez MD Lymphocytes (Bld) [#/Vol] 1.73 10*3/uL Normal 1.10-3.70 [facility] Comment on above: Performed By: #### C DP, FT4, TSH, SSARO, SSBLA #### [address] [phone] [employer]: Mark Hernadez MD Lymphocytes/100 WBC (Bld) 26 % Normal 24-43 [facility] Comment on above: Performed By: #### C DP, FT4, TSH, SSARO, SSBLA #### [address] [address] Toy Stuffer: Mark Hernadez MD MCH (RBC) [Entitic mass] 31.3 pg Normal 25.2-33.5 [facility] Comment on above: Performed By: #### C DP, FT4, TSH, SSARO, SSBLA #### [address] [address] [employer]: Mark Hernadez MD MCHC (RBC) [Mass/Vol] 34.2 g/dL Normal 28.4-34.8 [facility] Comment on above: Performed By: #### C DP, FT4, TSH, SSARO, SSBLA #### [address] [address] Toy Stuffer: Mark Hernadez MD MCV (RBC) [Entitic vol] 91.5 fL Normal 82.6-102.9 [facility] Comment on above: Performed By: #### C DP, FT4, TSH, SSARO, SSBLA #### [address] [address] Toy Stuffer: Mark Hernadez MD Monocytes (Bld) [#/Vol] 0.52 10*3/uL Normal 0.10-1.20 [facility] Comment on above: Performed By: #### C DP, FT4, TSH, SSARO, SSBLA #### [address] [address] Toy Stuffer: Mark Hernadez MD Monocytes/100 WBC (Bld) 8 % Normal 3-12 [facility] Comment on above: Performed By: #### C DP, FT4, TSH, SSARO, SSBLA #### [address] [address] Toy Stuffer: Mark Hernadez MD Neutrophil (Seg) 65 % Normal 36-65 [facility] Comment on above: Performed By: #### C DP, FT4, TSH, SSARO, SSBLA #### [address] [address] Toy Stuffer: Mark Hernadez MD NRBC Automated 0.0 per 100 WBC Normal 0.0 [facility] Comment on above: Performed By: #### C DP, FT4, TSH, SSARO, SSBLA #### [address] [address] Toy Stuffer: Mark Hernadez MD Platelet mean volume (Bld) [Entitic vol] 9.8 fL Normal 8.1-13.5 [facility] Comment on above: Performed By: #### C DP, FT4, TSH, SSARO, SSBLA #### [address] [address] Toy Stuffer: Mark Hernadez MD Platelets (Bld) [#/Vol] 265 10*3/uL Normal 138-453 [facility] Comment on above: Performed By: #### C DP, FT4, TSH, SSARO, SSBLA #### [address] [address] Toy Stuffer: Mark Hernadez MD RBC (Bld) [#/Vol] 3.29 10*6/uL Low 3.95-5.11 [facility] Comment on above: Performed By: #### C DP, FT4, TSH, SSARO, SSBLA #### [address] [address] Toy Stuffer: Mark Hernadez MD WBC (Bld) [#/Vol] 6.7 10*3/uL Normal 3.5-11.3 [facility] Comment on above: Performed By: #### C DP, FT4, TSH, SSARO, SSBLA #### [facility] [address] [place] [phone] Toy Stuffer: Mark Hernadez MD Auto Diff Performed NOT REPORTED Normal [facility] Comment on above: Performed By: #### C DP, FT4, TSH, SSARO, SSBLA #### [facility] [address] [place] [address] Toy Stuffer: Mark Hernadez MD Platelet Comment NOT REPORTED Normal [facility] Comment on above: Performed By: #### C DP, FT4, TSH, SSARO, SSBLA #### [facility] [address] [place] [phone] Toy Stuffer: Mark Hernadez MD RBC morphology finding Nom (Bld) NOT REPORTED Normal [facility] Comment on above: Performed By: #### C DP, FT4, TSH, SSARO, SSBLA #### [facility] [address] [place] [phone] Toy Stuffer: Mark Hernadez MD WBC Morphology NOT REPORTED Normal [facility] Comment on above: Performed By: #### C DP, FT4, TSH, SSARO, SSBLA #### [address] [address] Toy Stuffer: Mark Hernadez MD No Panel Informationon 10-05 [facility] T4, FREEon 10-05-2021 Thyroxine, Free 1.04 ng/dL 0.93 - 1.70 ng/dL [facility] TSH without Reflexon 021 TSH Qn 1.94 m[IU]/L [facility] TYPE AND SCREENon 10-05-2021 ABO/Rh Positive [facility] Arm Band Number [id number] [facility] Expiration Date 10/08/2021,2359 [facility] Thyroid Stim. Horm.on 12-23- 2021 TSH Qn 1.94 m[IU]/L Normal 0.30-5.00 [facility] Comment on above: Performed By: #### C DP, FT4, TSH, SSARO, SSBLA #### [employer] [facility] [place] [address] Toy Stuffer: Mark Hernadez MD Thyroxine, Freeon 10-05-2021 Thyroxine, Free 1.04 ng/dL Normal 0.93-1.70 [facility] Comment on above: Performed By: #### C DP, FT4, TSH, SSARO, SSBLA #### [facility] [address] [place] [address] [phone] Toy Stuffer: Mark Hernadez MD Type + Screenon 10-05-2021 Type + Screen Sample Expiration 10/08/2021,2359 Arm Band Number [id number] ABO/Rh(D) O POSITIVE Antibody Screen NEGATIVE Normal [facility] Comment on above: Performed By: #### T YS #### [facility] [address] [place] [id number] Toy Stuffer: Mark Hernadez MD US PREG BIOPHY W [...] by: FERN CALZADA Date: 2021-10-05 13:16 Normal [facility] US PREG GROWTHon 10-05-2021 US PREG GROWTH [...] (3rd percentile). 3. Slightly thickened appearance of [place]'s jelly surrounding the umbilical cord; nonspecific but can be associated with gestational diabetes. Report placed in the stat call folder. Electronically authenticated by: FERN CALZADA Date: 2021-10-05 13:22 Normal [facility] CBC AUTO DIFFon 09-05-2021 BASO # 0.0 103/ul Normal 0.0-0.1 [facility] Comment on above: Performed By: #### Nora SALINAS #### [facility] [address] [place], [place] [address] Nancy Veronique Basophils/100 WBC (Bld) 0.3 % Normal 0.2-2.0 [facility] Comment on above: Performed By: #### Nora SALINAS #### [facility] [address] [place], [place] [address] Nancy Veronique EO # 0.1 103/ul Normal 0.0-0.7 [facility] Comment on above: Performed By: #### V RITA #### [facility] [address] [place], [place] [address] Nancy Veronique Eosinophils/100 WBC (Bld) 0.8 % Critically low 0.9-7.0 [facility] Comment on above: Performed By: #### V RITA #### [facility] [address] [place], [place] [address] Nancy Veronique Erythrocyte distribution width (RBC) [Ratio] 13.5 % Normal 11.0-15.0 [facility] Comment on above: Performed By: #### Nora SALINAS #### [facility] [address] [place] [address] Nancy Piper Hematocrit (Bld) [Volume fraction] 33.0 % Critically low 36.0-48.0 [facility] Comment on above: Performed By: #### Nora SALINAS #### [facility] [address] [place] [address] Nancy Piper Hemoglobin (Bld) [Mass/Vol] 10.8 g/dL Critically low 12.0-16.0 [facility] Comment on above: Performed By: #### Nora SALINAS #### [facility] [address] [place] [address] Nancy Piper IG # 0.05 10e3/ul Critically high 0.00-0.03 [facility] Comment on above: Performed By: #### Nora SALINAS #### [facility] [address] [place] [address] Nancypatricia Piper IG % 0.6 % Critically high 0.0-0.5 [facility] Comment on above: Performed By: #### Nora SALINAS #### [facility] [address] [place] [address] Nancy Piper LYMPH # 1.4 103/ul Normal 1.2-3.8 [facility] Comment on above: Performed By: #### Nora SALINAS #### [facility] [address] [place] [address] Nancy Piper Lymphocytes/100 WBC (Bld) 17.1 % Critically low 20.5-60.0 [facility] Comment on above: Performed By: #### Nora SALINAS #### [facility] [address] [place] [address] Nancy Veronique MANUAL DIFF REQ NO Normal [facility] Comment on above: Performed By: #### Nora SALINAS #### [facility] [address] [place] [address] Nancy Kellyen MCH (RBC) [Entitic mass] 31.4 pg Normal 26.7-34.0 [facility] Comment on above: Performed By: #### Nora SALINAS #### [facility] [address] [place], [place] [address] Nancy Piper MCHC (RBC) [Mass/Vol] 32.7 g/dL Normal 29.9-35.2 [facility] Comment on above: Performed By: #### Nora SALINAS #### [facility] [address] [place] [phone] Nancy Piper MCV (RBC) [Entitic vol] 95.9 fL Normal 81.0-99.0 [facility] Comment on above: Performed By: #### Nora SALINAS #### [facility] [address] [place], [place] [phone] Nancy Piper MONO # 0.5 103/ul Normal 0.3-0.8 [facility] Comment on above: Performed By: #### Nora SALINAS #### [facility] [address] [place], [place] [phone] Nancy Piper Monocytes/100 WBC (Bld) 6.3 % Normal 1.7-12.0 [facility] Comment on above: Performed By: #### Nora SALINAS #### [facility] [address] [place], [place] [phone] Nancy Kellyen NEUT # 5.9 103/ul Normal 1.4-6.5 [facility] Comment on above: Performed By: #### Nora SALINAS #### [facility] [address] [place], [place] [phone] Nancypatricia Piper Neutrophils/100 WBC (Bld) 74.9 % Normal 43.0-75.0 [facility] Comment on above: Performed By: #### Nora SALINAS #### [facility] [address] [place], [place] [phone] Nancy Piper Platelet mean volume (Bld) [Entitic vol] 9.9 fL Normal 9.5-13.5 [facility] Comment on above: Performed By: #### Nora SALINAS #### [facility] [address] [place] [id number] Nancy Veronique PLT 243 103/ul Normal 150-450 [facility] Comment on above: Performed By: #### V RITA #### [facility] [address] [place], [place] [address] Nancy Veronique RBC 3.44 106/ul Critically low 4.20-5.40 [facility] Comment on above: Performed By: #### V RITA #### [facility] [address] [place], [place] [address] Nancy Veronique WBC 7.9 103/ul Normal 4.0-11.0 [facility] Comment on above: Performed By: #### V RITA #### [facility] [address] [place], [place] [address] Nancy Kellyen GLUCOSE - 1HRon 09-05-2021 Glucose [Mass/Vol] 98 mg/dL Normal 74-106 [facility] [place] Comment on above: Performed By: #### G LU1HR #### [facility] [address] [place], [place] [address] Dr. Leonardo Khalil US PREG ANATOMY SINGLEon [...] by ultrasound, 88th percentile by expected) FL/AC: 0.744168 FL/BPD: 0.990134 HC/AC: 1.958804 GESTATIONAL AGE: Age by EDC: 20 weeks, 6 days ÁLVARO by EDC: 11/28/2021 Age by current US: 21 weeks, 3 days ÁLVARO by current US: 11/24/2021 IMPRESSION: 1. Single live intrauterine with growth detailed above. Normal [facility] Pap IG, rfx Aptima HPV, rfx 16/18,45 + Con 05-22-2021 . . Normal [facility] Comment on above: Result Comment: Perf ormed at: WB Performed By: #### V RITA #### [facility] [address] [place] [address] Nancy Piper Chlamydia, Nuc. Acid Amp Negative Normal Negative [facility] Comment on above: Result Comment: Perf ormed at: =G Performed By: #### V RITA #### [facility] [address] [place] [address] Nancy Piper DIAGNOSIS: Comment Normal [facility] Comment on above: Result Comment: NEGA TIVE FOR INTRAEPITHELIAL LESION OR MALIGNANCY. Performed at: WB Performed By: #### V RITA #### [facility] [address] [place] [address] Nancy Piper Gonococcus, Nuc. Acid Amp Negative Normal Negative [facility] Comment on above: Result Comment: Perf ormed at: =G Performed By: #### V RITA #### [facility] [address] [place] [address] Nancy Piper HPV Aptima Negative Normal Negative [facility] Comment on above: Result Comment: This nucleic acid amplification test detects fourteen high-risk HPV types (16,18,31,33,35,39,45,51,52,56,58,59,66,68) without differentiation. Performed at: =G Performed By: #### V RITA #### [facility] [address] [place] [address] Nancy Piper Methodology: Comment Normal [facility] Comment on above: Result Comment: This liquid based ThinPrep(R) pap test was screened with the use of an image guided system. Performed at: WB Performed By: #### V ARCEL #### [facility] [address] [place], [place] [phone] Nancy Piper Note: Comment Normal [facility] Comment on above: Result Comment: The Pap smear is a screening test designed to aid in the detection of premalignant and malignant conditions of the uterine cervix. It is not a diagnostic procedure and should not be used as the sole means of detecting cervical cancer. Both false-positive and false-negative reports do occur. . Performed at: WB Performed By: #### V ARCEL #### [facility] [address] [place] [address] Nancy Piper Performed by: Comment Normal [facility] Comment on above: Result Comment: Irving Alarcon, Reinspector (ASCP) Performed at: WB Performed By: #### V ARCEL #### [facility] [address] [place] [address] Nancy Piper Specimen adequacy: Comment Normal [facility] Comment on above: Result Comment: Sati sfactory for evaluation. No endocervical component is identified. Performed at: WB Performed By: #### V ARCEL #### [facility] [address] [place], [place] [phone] Nancy Piper CULTURE URINEon 05-18-2021 CULTURE URINE Culture Observations : LIGHT GROWTH OF MIXED GENITAL KRISTEL. NO POTENTIAL PATHOGENS SEEN. Normal [facility] Comment on above: Performed By: #### U RCX #### [facility] [address] [place] [address] Nancy Piper UA RANDOM W/MICROSCOPICon BACTERIA NONE SEEN Normal NONE SEEN [facility] Comment on above: Performed By: #### R PRQ #### [facility] [address] [place], [place] [phone] Nancypatricia Piper Bilirubin Ql (U) Negative Normal NEGATIVE [facility] Comment on above: Performed By: #### R PRQ #### [facility] [address] [place] [address] Nancypatricia Piper CAST NONE SEEN Normal NONE SEEN [facility] Comment on above: Performed By: #### R PRQ #### [facility] [address] [place] [address] Nancy Veronique Clarity (U) CLEAR Normal CLEAR [facility] Comment on above: Performed By: #### R PRQ #### [facility] [address] [place] [address] Nancy Veronique Color (U) LT. YELLOW Normal YELLOW [facility] Comment on above: Performed By: #### R PRQ #### [facility] [address] [place] [address] Nancy Veronique Crystals LM Nom (Urine sed) NONE SEEN Normal NONE SEEN [facility] Comment on above: Performed By: #### R PRQ #### [facility] [address] [place] [address] Nancy Veronique Epithelial cells LM Ql (Urine sed) FEW Abnormal NONE SEEN /RARE [facility] Comment on above: Performed By: #### R PRQ #### [facility] [address] [place] [address] Nancy Veronique Glucose Ql (U) Negative Normal NEGATIVE [facility] [place] Comment on above: Performed By: #### R PRQ #### [facility] [address] [place] [address] Nancy Veronique Hemoglobin Ql (U) Negative Normal NEGATIVE [facility] Comment on above: Performed By: #### R PRQ #### [facility] [address] [place] [address] Nancy Veronique Ketones Ql (U) Negative Normal NEGATIVE [facility] [place] Comment on above: Performed By: #### R PRQ #### [facility] [address] [place] [address] Nancy Veronique LEUKOCYTES Negative Normal NEGATIVE [facility] Comment on above: Performed By: #### R PRQ #### [facility] [address] [place] [address] Nancy Veronique MUCOUS TRACE Abnormal NONE SEEN [facility] Comment on above: Performed By: #### R PRQ #### [facility] [address] [place] [address] Nancy Veronique Nitrite Ql (U) Negative Normal NEGATIVE [facility] [place] Comment on above: Performed By: #### R PRQ #### [facility] [address] [place], [place] [phone] Nancy Piper pH (U) 5.5 [pH] Normal 5-9 [facility] Comment on above: Performed By: #### R PRQ #### [facility] [address] [place] [address] Nancy Piper RBC NONE SEEN Abnormal 0-2 [facility] Comment on above: Performed By: #### R PRQ #### [facility] [address] [place] [address] aNncy Piper SPEC GRAVITY >=1.030 Abnormal 1.005-<=1.025 [facility] Comment on above: Performed By: #### R PRQ #### [facility] [address] [place] [address] Nancy Piper UA PROTEIN Negative Normal NEGATIVE/ TRACE [facility] Comment on above: Performed By: #### R PRQ #### [facility] [address] [place] [address] Nancy Piper Urobilinogen Qn (U) 0.2 {Travis'U}/dL Normal 0.2 - 1. 0 [facility] Comment on above: Performed By: #### R PRQ #### [facility] [address] [place] [address] Nancy Piper WBC NONE SEEN Normal NONE SEEN [facility] Comment on above: Performed By: #### R PRQ #### [facility] [address] [place] [address] Nancy Piper HEMOGLOBINOPATHY FRACTIONATI ON CASCADEon 05-17-2021 HGB A 97.8 % Normal 96.4-98.8 [facility] Comment on above: Performed By: #### H GBCAS #### [facility] [address] [place] [address] Nancy Piper HGB A2 2.2 % Normal 1.8-3.2 [facility] Comment on above: Performed By: #### H GBCAS #### [facility] [address] [place] [address] Nancy Piper HGB F 0.0 % Normal 0.0-2.0 [facility] Comment on above: Performed By: #### H GBCAS #### [facility] [address] [place] [address] Nancy Piper HGB S 0.0 % Normal 0.0 [facility] Comment on above: Performed By: #### H GBCAS #### [facility] [address] [place] [address] Nancy Piper Interpretation: Comment Normal [facility] Comment on above: Result Comment: Norm al hemoglobin present; no hemoglobin variant or thalassemia observed. Performed By: #### H GBCAS #### [facility] [address] [place] [address] Nancy Piper HEP B SURFACE ANTIGEN SCREEN on 05-17-2021 HBsAg Screen Negative Normal Negative [facility] Comment on above: Performed By: #### H BSANS #### [facility] [address] [place] [address] Nancy Piper HEPATITIS C ANTIBODYon 05-17 Hep C Virus Ab <0.1 Normal 0.0-0.9 [facility] Comment on above: Result Comment: Nega tive: < 0.8 Indeterminate: 0.8 - 0.9 Positive: > 0.9 . The CDC recommends that a positive HCV antibody result be followed up with a HCV Nucleic Acid Amplification test (786150). Performed By: #### H CV #### [facility] [address] [place] [address] Nancy Piper HIV 1 AND 2 WITH REFLEXon HIV Screen 4th Generation wRfx Non-Reactive Normal Non Reactive [facility] Comment on above: Performed By: #### V ARCEL #### [facility] [address] [place] [address] Nancy Piper RPR QUANTon 05-17-2021 Rapid Plasma Reagin, Quant Non-Reactive Normal NonRea<1:1 [facility] Comment on above: Performed By: #### R PRQ #### [facility] [address] [place] [address] Nancy Piper RUBELLA AB IGGon 05-17-2021 Rubella Antibodies, IgG 4.07 index Normal Immune >0.99 [facility] Comment on above: Result Comment: Non- immune <0.90 Equivocal 0.90 - 0.99 Immune >0.99 Performed By: #### R UBLORIEG #### [facility] [address] [place] [address] Nacny Piper VARICELLA IGG ABon Varicella Zoster IgG 1067 index Normal Immune >165 [facility] Comment on above: Result Comment: Nega tive <135 Equivocal 135 - 165 Positive >165 A positive result generally indicates exposure to the pathogen or administration of specific immunoglobulins, but it is not indication of active infection or stage of disease. Performed By: #### V RITA #### [facility] [address] [place] [address] Nancy Piper CBC AUTO DIFFon 05-16-2021 BASO # 0.0 103/ul Normal 0.0-0.1 [facility] Comment on above: Performed By: #### C BC #### [facility] [address] [place] [address] Nancy Kelylen Basophils/100 WBC (Bld) 0.3 % Normal 0.2-2.0 [facility] Comment on above: Performed By: #### C BC #### [facility] [address] [place] [address] Nancy Piper EO # 0.1 103/ul Normal 0.0-0.7 [facility] Comment on above: Performed By: #### C BC #### [facility] [address] [place] [address] Nancy Piper Eosinophils/100 WBC (Bld) 0.8 % Critically low 0.9-7.0 [facility] Comment on above: Performed By: #### C BC #### [facility] [address] [place] [address] Nancy Piper Erythrocyte distribution width (RBC) [Ratio] 12.6 % Normal 11.0-15.0 [facility] Comment on above: Performed By: #### C BC #### [facility] [address] [place], [place] [id number] Nancy Veronique Hematocrit (Bld) [Volume fraction] 36.7 % Normal 36.0-48.0 [facility] Comment on above: Performed By: #### C BC #### [facility] [address] [place], [place] [id number] Nancy Veronique Hemoglobin (Bld) [Mass/Vol] 12.5 g/dL Normal 12.0-16.0 [facility] Comment on above: Performed By: #### C BC #### [facility] [address] [place], [place] [id number] Nancy Veronique IG # 0.03 10e3/ul Normal 0.00-0.03 [facility] Comment on above: Performed By: #### C BC #### [facility] [address] [place] [address] Nancy Veronique IG % 0.3 % Normal 0.0-0.5 [facility] Comment on above: Performed By: #### C BC #### [facility] [address] [place] [address] Nancy Veronique LYMPH # 1.7 103/ul Normal 1.2-3.8 [facility] Comment on above: Performed By: #### C BC #### [facility] [address] [place], [place] [id number] Nancypatricia Piper Lymphocytes/100 WBC (Bld) 16.9 % Critically low 20.5-60.0 [facility] Comment on above: Performed By: #### C BC #### [facility] [address] [place], [place] [id number] Nancypatricia Kellyen MANUAL DIFF REQ NO Normal [facility] Comment on above: Performed By: #### C BC #### [facility] [address] [place], [place] [id number] Nancy Veronique MCH (RBC) [Entitic mass] 30.7 pg Normal 26.7-34.0 [facility] Comment on above: Performed By: #### C BC #### [facility] [address] [place], [place] [id number] Nancypatricia Kellyen MCHC (RBC) [Mass/Vol] 34.1 g/dL Normal 29.9-35.2 [facility] Comment on above: Performed By: #### C BC #### [facility] [address] [place], [place] [id number] Nancy Piper MCV (RBC) [Entitic vol] 90.2 fL Normal 81.0-99.0 [facility] Comment on above: Performed By: #### C BC #### [facility] [address] [place], [place] [id number] Nancypatricia Kellyen MONO # 0.7 103/ul Normal 0.3-0.8 [facility] Comment on above: Performed By: #### C BC #### [facility] [address] [place], [place] [id number] Nancy Piper Monocytes/100 WBC (Bld) 6.5 % Normal 1.7-12.0 [facility] Comment on above: Performed By: #### C BC #### [facility] [address] [place] [address] Nancy Kellyen NEUT # 7.6 103/ul Critically high 1.4-6.5 [facility] Comment on above: Performed By: #### C BC #### [facility] [address] [place], [place] [id number] Nancy Piper Neutrophils/100 WBC (Bld) 75.2 % Critically high 43.0-75.0 [facility] Comment on above: Performed By: #### C BC #### [facility] [address] [place], [place] [id number] Nancypatricia Piper Platelet mean volume (Bld) [Entitic vol] 10.0 fL Normal 9.5-13.5 [facility] Comment on above: Performed By: #### C BC #### [facility] [address] [place], [place] [id number] Nancy Veronique PLT 275 103/ul Normal 150-450 [facility] Comment on above: Performed By: #### C BC #### [facility] [address] [place], [place] [id number] Nancy Veronique RBC 4.07 106/ul Critically low 4.20-5.40 [facility] Comment on above: Performed By: #### C BC #### [facility] [address] [place], [place] [address] Nancypatricia Piper WBC 10.2 103/ul Normal 4.0-11.0 [facility] Comment on above: Performed By: #### C BC #### [facility] [address] [place], [place] [address] Nancypatricia Piper GLYCOHEMOGLOBIN A1Con 2020 ADA RECOMMENDATION ADA THERAPEUTIC TARGET 6.0 - 7.0 ACTION SUGGESTED > 7.0 Normal [facility] Comment on above: Performed By: #### A 1C #### [facility] [address] [place] [id number] Nancy Veronique Glucose [Mass/Vol] 91 mg/dL Normal [facility] [place] Comment on above: Performed By: #### A 1C #### [facility] [address] [id number] Nancypatricia Piper HbA1c (Bld) [Mass fraction] 4.8 % Normal <=6.0 [facility] Comment on above: Performed By: #### A 1C #### [facility] [address] [id number] Nancypatricia Piper PREG QUANT HCGon 05-16-2021 HCG QUANT 43914 mIU/mL Normal [facility] Comment on above: Result Comment: Dilu mara Performed By: #### Nora SALINAS #### [facility] [address] [place], [place] [id number] Nancypatricia Piper HCG RANGE SEE BELOW Normal [facility] Comment on above: Result Comment: 5-50 0-1 WEEK 40-300 1-2 WEEKS 100-1,000 2-3 WEEKS 500-6,000 3-4 WEEKS 5,000-200,000 1-2 MONTHS 10,000-100,000 2-3 MONTHS 3,000-50,000 2ND TRIMESTER 1,000-50,000 3RD TRIMESTER Performed By: #### Nora SALINAS #### [facility] [address] [place], [place] [id number] Nancy Veronique TYPE AND SCREENon 05-16-2021 TYPE AND SCREEN Negative Normal [facility] Comment on above: Performed By: #### R PRQ #### [facility] [address] [place] [address] Nancy Piper US PREG TVon 04-18-2021 US [...] by: CHELITA CARDENAS Date: 2021-04-18 12:02 Normal [facility] Vital Signs Date Time Vital Sign Value Performing Clinician Evan luna 10-06-2021 09:06-0500 Body temperature 98.2 [degF] Elvia Donis DO Work Phone: [employer] 10-06-2021 09:06-0500 Diastolic blood pressure 74 mm[Hg] Elvia Donis DO Work Phone: [employer] 10-06-2021 09:06-0500 Heart rate 84 /min Elvia Donis DO Work Phone: [employer] 10-06-2021 09:06-0500 Respiratory rate 17 /min Elvia Donis DO Work Phone: [employer] 10-06-2021 09:06-0500 SaO2% (BldA) [Mass fraction] 99 % Elvia Donis DO Work Phone: [employer] 10-06-2021 09:06-0500 Systolic blood pressure 121 mm[Hg] Elvia Donis DO Work Phone: [employer] 10-05-2021 18:40-0500 Body height 157.5 cm Elvia Donis DO Work Phone: [employer] 10-05-2021 18:40-0500 Body mass index (BMI) [Ratio] 30.36 kg/m2 El[facility] Donis DO [facility] 10-05-2021 18:40-0500 Body weight 75.3 kg Elvia Donis DO Work Phone: [facility] Encounters Encounter Date Encounter Type Care Provider Facility Start: 05-21-2024 End: 05-21-2024 ambulatory RADHA JIO Not Available Start: 04-23-2024 End: 04-23-2024 ambulatory RADHA JOVANNI Not Available Start: 04-22-2024 ambulatory STARCH TREATING ASSISTANT Yola Camarena Facil ity:[facility] [place] Start: 03-19-2024 End: 03-19-2024 ambulatory RADHA JOVANNI Not Available Start: 11-12-2023 End: 11-12-2023 ambulatory RADHA JOVANNI Not Available Start: 05-07-2023 ambulatory STARCH TREATING ASSISTANT Yola Camarena Facilit y:[facility] [place] Start: 04-24-2022 End: 04-24-2022 Off-Site Ana Gudimella [facility] Start: 03-22-2022 End: 03-22-2022 Off-Site Ana Gudimella [facility] Start: 11-09-[address] DOCTOR BURGOS Facility :[facility] Start: 11-06-2021 End: 11-06-[address] RADHA HOOVER Facility:[facility] Start: 11-03-2021 End: 11-03-[address] RADHA HOOVER Facility:[facility] Start: 11-02-2021 End: 11-02-[address] CHELITA CARDENAS Facility:[facility] Start: 10-30-2021 End: 10-30-[address] PEG LACEY Facility:[facility] Start: 10-26-2021 End: 10-26-[address] CHELITA CARDENAS Facility:[facility] Start: 10-24-2021 End: 10-25-2021 ambulatory AUGIE MENCHACAY [facility] Start: 10-19-2021 End: 10-19-[address] PEG LACEY Facility:[facility] Start: 10-12-2021 End: 10-12-[address] PEG LACEY Facility:[facility] Start: 10-06-2021 End: 10-06-[address] RADHA HOOVER Facility:[facility] Start: 10-05-2021 End: 10-06-2021 [facility] Start: 10-05-2021 End: 10-06-2021 Subsequent hospital visit [...] Facility:[facility] Start: 02-08-2021 End: 02-09-[address] PATTY BURGOS Facility:[facility] Procedures Date Procedure Procedure Detail Performing [...] DTaP/Tdap/Td vaccine (2 - Td or Tdap) [facility] Start: 08-10-2021 COVID-19 Vaccine (3 - Booster for Pfizer series) COVID-19 Vaccine (3 - Booster for Pfizer series) [employer] Start: 06-14-2021 Influenza vaccination Flu vaccine (# 1) [employer] Start: 2019 [facility] for malign [facility] Start: 2010 Screening for malign ant neoplasm of cervix Pap smear [facility] Start: 2004 HIV screening HIV screen [facility] Start: 1990 Varicella vaccine (1 of 2 - 2-dose childhood series) Varicella vaccine (1 of 2 - 2-dose childhood series) [employer] Start: 1989 Hepatitis C screening Hepatitis C sc ree [employer] End: 10-06-2021 MISCELLANEOUS TESTING MISCELLANEOUS TESTING Lab STAT Once for 1 Occurrences starting 10/06/2021 until 10/06/2021 [employer] Phone: Comment on above: Once for 1 Occurrenc es starting 10/06/2021 until 10/06/2021 Nonrebreather mask oxygen Nonreb reather mask oxygen Respiratory Care Routine As directed - RT (PRN) until discontinued starting 10/05/2021 [employer] Phone: Comment on above: As directed - RT (CT N) until discontinued starting 10/05/2021 End: 10-05-2021 SJOGRENS SYNDROME-A EXTRACTABLE NUCLEAR ANTIBODY [employer] Phone: Comment on above: One Time for 1 Occur rences starting 10/05/2021 until 10/05/2021 End: 10-05-2021 SJOGRENS SYNDROME-B EXTRACTABLE NUCLEAR ANTIBODY [employer] Phone: Comment on above: One Time for 1 Occur rences starting 10/05/2021 until 10/05/2021 Immunizations Immunization Date Immunization Notes Care Provider Giovany hargrove 10-19-2021 influenza virus vaccine, unspecified formulation Ana Matimelaugustin [facility] [place] 10-19-2021 tetanus toxoid, redu garry diphtheria toxoid, and acellular pertussis vaccine, adsorbed Ana Matimelaugustin [facility] 02-08-2021 SARS-CoV-2 (COVID-19 ) mRNA BNT-162b2 vax Ana Gudimella [facility] 01-18-2021 SARS-CoV-2 (COVID-19 ) mRNA BNT-162b2 vax Ana Gudimella [facility] 08-26-2020 influenza, unspecifi ed formulation Ana Gudimella [facility] Payers Date Payer Category Payer Unknown [id number] 1989 Unknown [id number] 2.16.8 [id number] 1989 Unknown [id number] 2.16.8 40.1.539732.3.579.2.175 1989 Unknown [id number] 2.16.84 0.1.829791.3.579.2.593 1989 Unknown [id number] 2.16.84 0.1.914150.3.579.2.593 1989 Unknown [id number] 2.16.84 0.1.558447.3.579.2.593 1989 Unknown [id number] 2.16.84 0.1.930154.3.579.2.593 1989 Unknown [id number] 2.16.84 0.1.291340.3.579.2.593 1989 Unknown [id number] 2.16.84 0.1.662758.3.579.2.593 1989 Unknown [id number] 2.16.84 0.1.862064.3.579.2.593 1989 Unknown [id number] 2.16.84 0.1.632930.3.579.2.593 1989 Unknown [id number] 2.16.84 0.1.778974.3.579.2.593 1989 Unknown [id number] 2.16.84 0.1.469049.3.579.2.593 1989 Unknown [id number] 2.16.84 0.1.871661.3.579.2.593 1989 Unknown [id number] 2.16.84 0.1.261128.3.579.2.593 1989 Unknown [id number] 2.16.84 0.1.433232.3.579.2.593 1989 Unknown [id number] 2.16.84 0.1.431071.3.579.2.593 1989 Unknown [id number] 2.16.84 0.1.013310.3.579.2.593 1989 Unknown [id number] 2.16.8 40.1.903764.3.579.2.727 1989 Unknown [id number] 2.16.8 40.1.713200.3.579.2.727 1989 Unknown [id number] 2.16.84 0.1.088172.3.579.2.1259 1989 Unknown [id number] 2.16.84 0.1.547711.3.579.2.1259 1989 Unknown [id number] 2.16.84 0.1.728969.3.579.2.1259 1989 Unknown [id number] 2.16.84 0.1.740909.3.579.2.1259 1959 Self-pay Unknown [id number] 2.16.84 0.1.928121.3.579.2.593 Social History Date Type Detail Facility Start: 10-05-2021 End: 03-22-2022 Tobacco smoking status NHIS [facility] Work Phone: Start: 10-05-2021 Tobacco use and exposure Smokeless tobacco non-user [facility] [employer] Work Phone: Start: 10-05-2021 Alcohol intake Ex-drinker (finding) [facility] Work Phone: Start: 03-07-2021 [employer] [facility] Work Phone: Start: 1990 [facility]: Tobacco smoking status Never [facility] Sex Assigned At Female [facility] Functional Status Date Assessment Result Facility 04-24-2022 Functional Status Telehealth Patient [facility] Hospital Discharge instructions 03-22-2022 Note Date & Type Note Facility 03-22-2022 Hospital Discharg e instructions Follow Up Care 03/22/2022 14:50:25 With:Ana Em MD, FAM, MED Address: [address] [place] [phone] Business (1) When:Within 3 Month(s) [facility] Hospital Discharge instructions 03-14-2022 Note Date & Type Note Facility 03-14-2022 Hospital Discharg e instructions Follow Up Care 03/14/2022 16:26:08 With:Ana Em MD, FAM, MED Address: [address] [place] [phone] Business (1) When:Within 1 Month(s) [facility] Hospital Discharge instructions 10-06-2021 Instructions Note [...] Where can you learn more? Go to [email or web address] and sign in to your [employer] account. Enter A006 in the Search Health Information box to learn more about Learning About Low Amniotic Fluid. If you do not have an account, please click on the Sign Up Now link. Current as of: March 29, 2021 Content Version: 13.1 [employer]. Care instructions adapted under license by [employer]. If you have questions about a medical condition or this instruction, always ask your healthcare professional. [employer] disclaims any warranty or liability for your use of this information. documented in this encounter [employer] Work Phone: History of Present illness Narrative 10-06-2021 Daria Evans, - 10/06/2021 1:35 PM Ammon Evans, DO - 10/06/2021 10:06 AM Kandi Yarbrough RN [...] will get second dose of celestone at [facility]. Follow up with MFM on Saturday. Follow up with peds cardio in 1-2 weeks. Follow up with Dr. Hoover in one week. Attending in agreement with plan of care. Daria Evans DO NURSE EMERGENCY ROOM Resident, PGY3 [place], [place] 10/06/2021, 1:35 PM Maternal Medicine Ultrasound [...] to see the patient. Follow up with [facility] outpatient on Tuesday 10/09 Dr. Guevara updated, OB Residents updated, RN updated. Daria Evans DO [employer] Resident 10/06/2021, 10:06 AM Pt c/o headache related to lack of sleep or hunger, tylenol given NURSE EMERGENCY ROOM PROGRESS NOTE Carla Mendoza is a 31 [...] # 1.73 1.10 - 3.70 k/uL Absolute [place] # 0.52 0.10 - 1.20 k/uL Absolute Eos # 0.05 0.00 - 0.44 k/uL Basophils Absolute <0.03 0.00 - 0.20 k/uL Absolute Immature Granulocyte 0.03 0.00 - 0.30 k/uL WBC Morphology NOT REPORTED RBC Morphology NOT REPORTED Platelet Estimate NOT REPORTED TYPE AND SCREEN Collection Time: 10/05/21 8:21 PM Result Value Ref Range Expiration Date 10/08/2021,2359 Arm Band Number BE [id number] ABO/Rh O POSITIVE Antibody Screen NEGATIVE TSH [...] Diet - MFM ultrasound 10/05 demonstrates BPP 8 with CHERELLE 4cm, plan for repeat MFM [...] Will update attending physician. Ellis Colmenares DO [employer] Resident 10/06/2021, 5:35 AM documented in this encounter [employer] Phone: Evaluation + Plan note Note Date & Type Note Facility Evaluation + Plan note Future Appointments Appointment Date:04/24/2022 01:20:00 PM Scheduled Provider:Ana Em MD Location:[facility] Appointment Type: Video Visit [facility] Evaluation note Note Date & Type [...] episode of care documented in this encounter [employer] Phone: Hospital course Narrative Note Date & Type Note Facility Hospital course Narrative No data available for this section [facility] [employer] Progress note Note Date & Type Note Facility Progress note No data available for this section [facility] [employer] Advance Directives No Advanced Directives Records FoundLatest Code Status on File Code Status Date Activated Date Inactivated Comments Full Code 10/05/2021 7:44 PM Summary Purpose Family History No Family History Records FoundNo Family History Records FoundNo Family History Records FoundNo Family History Records Found Additional Source Comments Reason for Visit (unrecogniz ed section and content) Reason Comments Other oligo, arrhyth arelis from [facility] Scheduled Active and Recently Administ ered Medications (unrecognized section and content) Medication Order 10/04/2021 10/05/2021 10/06/2021 aspirin EC tablet 81 mg 81 mg, Oral, DAILY, First dose on Sat10/06/21 at 0900, Do not crush or break. 0917 (Given - Provid er: Juliana Hamm RN) betamethasone acetate-betamethasone sodium phosphate (CELESTONE) injection 12 mg 12 mg, IntraMUSCular, EVERY 24 HOURS, First dose on Azucena 10/05/21 at 1999, For 2 doses 2041 (Given - Provider: Rojas Stanton RN) 1999 (Due) vitamin plus iron 29-1 MG tablet 1 tablet 1 tablet, Oral, DAILY, First dose on Sat10/06/21 at 0900 0917 (Given - Provid er: Juliana Hamm RN) sertraline (ZOLOFT) tablet 25 mg 25 mg, [...] Vomiting, Starting on Azucena 10/05/21 at 194 Linked Groups Order Group 1: ondansetron (ZOFRAN-ODT) [...]
Care Teams (unrecognized sec tion and content) Life Skills Trainer Relationship Specialty Start Date End Date Augie Pedroza MD [address] [phone] PCP - General Family Medicine 10/05/21 INFORMATION SOURCE (unrecogn ized section and content) DATE CREATED AUTHOR 11/08/2021 [facility] DATE CREATED AUTHOR AUTHOR'S ORGANIZ ATION 01/22/2022 [facility] DATE CREATED AUTHOR AUTHOR'S ORGANIZ ATION 04/28/2024 [facility] DATE CREATED AUTHOR AUTHOR'S ORGANIZ ATION 05/24/2024 [facility] FOR RECORDS PERTAINING TO PATIENTS WHO ARE [...] BE BASED ON THE PRIMARY CLINICAL RECORDS. [employer]. provides no warranty or guarantee of the accuracy or completeness of information in this document.
== END 2024-06-17 08:07 | disposition home or self-care (01) ==
LOC: NOMS 08:06
PROVIDERS: PCP Nurse Practitioner; Visit Provider Obstetrics & Gynecology
DX: Z34.92 Encounter for supervision of normal pregnancy, unspecified, second trimester (principal); Z36.89 Encounter for other specified antenatal screening; Z3A.23 23 weeks gestation of pregnancy
CPT/HCPCS: 76805; 76817

== ENCOUNTER 2024-06-17 09:46 | Outpatient (OUT) | payer OTHER, SELFPAY ==
--- OUTSIDE RECORDS SUMMARY | 2024-06-17 10:05 | XMS_ITS | CCD ---
Author Organization [facility] Care Team Providers Care Fireman Helper Name Role Phone Augie Pedroza MD Primary Care Provider [phone] ELVIA DONIS Admitting Unavailable ELVIA DONIS Attending [...] JOVANNI, DR GARCIA Consulting Unavailable MISC, DR ODSHI Primary Care Unavailable JOVANNI, DR GARCIA Attending [...] Consulting Unavailable Ana Em Primary Care Physician [facility])[phone] Nicol, TOSHA Bergeron Attending Unavailable JOVANNI, RADHA [...] q24hr, # 90 tab(s), Refills(s) 2, Pharmacy: [facility], 157.4, cm, 04/24/22 13:18:00 EDT, Height/Length Dosing, 72, kg, 03/22/22 14:14:00 EDT, Weight Dosing Start Date: 04/24/22 Status: Ordered Start: 03-22-2022 take 1 tablet by myah th every twenty-four hours Wellbutrin XL 150 mg/24 hours Tab-ER 150 mg = 1 tab(s), Oral, q24hr, # 30 tab(s), Refills(s) 0, Pharmacy: [facility], 157.4, cm, 03/22/22 14:14:00 EDT, Height/Length [...] conditions (2 sources) exposure to drug; Translations: [Gordon affected by maternal noxious substance, unspecified] Onset: [...] - Ultrasound Reporton RAD - Ultrasound Report [id number] Normal [facility] GROUP B STREP CULTUREon 10-15 S. agalactiae Ag Ql (Unsp spec) Culture Observations: NEGATIVE FOR GROUP B STREPTOCOCCUS. Normal [facility] Comment on above: Performed By: #### R PRQ #### [facility] [address] [place] [address] Nancy Piper US PREG BIOPHY W NON [...] by: CHELITA CARDENAS Date: 2021-11-02 13:37 Normal [facility] US PREG BIOPHY W NON STRESSo [...] by: CHELITA CARDENAS Date: 2021-10-26 14:34 Normal [facility] US PREG BIOPHY W NON STRESSo [...] by: FERN CALZADA Date: 2021-10-19 14:42 Normal [facility] US PREG BIOPHY W NON STRESSo [...] FERN CALZADA Date: 2021-10-12 13:32 Normal [facility] 10-09-2021 Send Out Report FORWARD TO [facility] Comment on above: Performed By: #### C MIS #### [place] [id number] Director Of Elementary Education: Mark Hernadez MD [facility] 10-09-2021 SSA <0.3 Normal <7.0 [facility] Comment on above: Result Comment: Reference Range: <7.0 Negative 7.0-10.0 Equivocal >10.0 Positive Performed By: #### C DP, FT4, TSH, SSARO, SSBLA #### [address] [id number] Director Of Elementary Education: Mark Hernadez MD [facility] 10-09-2021 SSB <0.3 Normal <7.0 [facility] Comment on above: Result Comment: Reference Range: <7.0 Negative 7.0-10.0 Equivocal >10.0 Positive Performed By: #### C DP, FT4, TSH, SSARO, SSBLA #### [address] [id number] Director Of Elementary Education: Mark Hernadez MD [facility] 10-06-2021 Test Name [facility] Comment on above: Performed By: #### C MIS #### [address] [place] [address] Director Of Elementary Education: Mark Hernadez MD CBC WITH AUTO DIFFERENTIALon 10-05-2021 Absolute Eos # 0.05 [facility] th Absolute Immature Granulocyte 0.03 [facility] Absolute Lymph # 1.73 [facility] Absolute [place] # 0.52 [facility] Basophils (Bld) [#/Vol] 10*3/uL [facility] Basophils/100 WBC (Bld) 0 % 0 - 2 % [facility] Differential Type NOT REPORTED [facility] Eosinophils/100 WBC (Bld) 1 % 1 - 4 % [facility] Hematocrit (Bld) [Volume fraction] 30.1 % Low 36.3 - 47.1 % [facility] Hemoglobin.gastrointe stinal spec 1 Ql (Stl) 10.3 g/dL Low 11.9 - 15.1 g/dL [facility] Immature granulocytes/100 WBC (Bld) 0 % 0 [facility] Interpretation and review of laboratory results Abnormal [facility] Lymphocytes/100 WBC (Bld) 26 % 24 - 43 % [facility] MCH (RBC) [Entitic mass] 31.3 pg 25.2 - 33.5 pg [facility] MCHC (RBC) [Mass/Vol] 34.2 g/dL 28.4 - 34.8 g/dL [facility] MCV (RBC) [Entitic vol] 91.5 fL 82.6 - 102.9 fL [facility] Monocytes/100 WBC (Bld) 8 % 3 - 12 % [facility] NRBC Automated 0.0 0.0 per 100 WBC [facility] Platelet distribution width (Bld) [Ratio] 13.6 % 11.8 - 14.4 % [facility] Platelet Estimate NOT REPORTED [facility] Platelet mean volume (Bld) [Entitic vol] 9.8 fL 8.1 - 13.5 fL [facility] Platelets (Bld) [#/Vol] 265 10*3/uL [facility] RBC (Bld) [#/Vol] 3.29 10*6/uL Low 3.95 - 5.1 1 m/uL [facility] RBC (Bld) [#/Vol] NOT REPORTED [facility] Segmented neutrophils/100 WBC (Bld) 65 % 36 - 65 % [facility] Segs Absolute 4.35 [facility] WBC (Bld) [#/Vol] 6.7 10*3/uL [facility] WBC (Bld) [#/Vol] NOT REPORTED [facility] CBC with Diffon 10-05-2021 Abs. Basophil <0.03 Normal 0.00-0.20 [facility] Comment on above: Performed By: #### C DP, FT4, TSH, SSARO, SSBLA #### [address] [address] Director Of Elementary Education: Mark Hernadez MD Abs.Imm.Granulocyte 0.03 k/uL Normal 0.00-0.30 [facility] Comment on above: Performed By: #### C DP, FT4, TSH, SSARO, SSBLA #### [address] [address] Director Of Elementary Education: Mark Hernadez MD Abs.Neutrophil (Seg) 4.35 k/uL Normal 1.50-8.10 [facility] Comment on above: Performed By: #### C DP, FT4, TSH, SSARO, SSBLA #### [address] [address] Director Of Elementary Education: Mark Hernadez MD Basophils/100 WBC (Bld) 0 % Normal 0-2 [facility] Comment on above: Performed By: #### C DP, FT4, TSH, SSARO, SSBLA #### [address] [address] Director Of Elementary Education: Mark Hernadez MD Eosinophils (Bld) [#/Vol] 0.05 10*3/uL Normal 0.00-0.44 [facility] Comment on above: Performed By: #### C DP, FT4, TSH, SSARO, SSBLA #### [address] [address] Director Of Elementary Education: Mark Hernadez MD Eosinophils/100 WBC (Bld) 1 % Normal 1-4 [facility] Comment on above: Performed By: #### C DP, FT4, TSH, SSARO, SSBLA #### [address] [address] Director Of Elementary Education: Mark Hernadez MD Erythrocyte distribution width (RBC) [Ratio] 13.6 % Normal 11.8-14.4 [facility] Comment on above: Performed By: #### C DP, FT4, TSH, SSARO, SSBLA #### [address] [address] Director Of Elementary Education: Mark Hernadez MD Hematocrit (Bld) [Volume fraction] 30.1 % Low 36.3-47.1 [facility] Comment on above: Performed By: #### C DP, FT4, TSH, SSARO, SSBLA #### [address] [address] Director Of Elementary Education: Mark Hernadez MD Hemoglobin (Bld) [Mass/Vol] 10.3 g/dL Low 11.9-15.1 [facility] Comment on above: Performed By: #### C DP, FT4, TSH, SSARO, SSBLA #### [address] [address] Director Of Elementary Education: Mark Hernadez MD Immature granulocytes/100 WBC (Bld) 0 % Normal 0 [facility] Comment on above: Performed By: #### C DP, FT4, TSH, SSARO, SSBLA #### [address] [address] Director Of Elementary Education: Mark Hernadez MD Lymphocytes (Bld) [#/Vol] 1.73 10*3/uL Normal 1.10-3.70 [facility] Comment on above: Performed By: #### C DP, FT4, TSH, SSARO, SSBLA #### [address] [id number] Director Of Elementary Education: Mark Hernadez MD Lymphocytes/100 WBC (Bld) 26 % Normal 24-43 [facility] Comment on above: Performed By: #### C DP, FT4, TSH, SSARO, SSBLA #### [address] [address] Director Of Elementary Education: Mark Hernadez MD MCH (RBC) [Entitic mass] 31.3 pg Normal 25.2-33.5 [facility] Comment on above: Performed By: #### C DP, FT4, TSH, SSARO, SSBLA #### [address] [address] Director Of Elementary Education: Mark Hernadez MD MCHC (RBC) [Mass/Vol] 34.2 g/dL Normal 28.4-34.8 [facility] Comment on above: Performed By: #### C DP, FT4, TSH, SSARO, SSBLA #### [address] [address] Director Of Elementary Education: Mark Hernadez MD MCV (RBC) [Entitic vol] 91.5 fL Normal 82.6-102.9 [facility] Comment on above: Performed By: #### C DP, FT4, TSH, SSARO, SSBLA #### [address] [address] Director Of Elementary Education: Mark Hernadez MD Monocytes (Bld) [#/Vol] 0.52 10*3/uL Normal 0.10-1.20 [facility] Comment on above: Performed By: #### C DP, FT4, TSH, SSARO, SSBLA #### [address] [address] Director Of Elementary Education: Mark Hernadez MD Monocytes/100 WBC (Bld) 8 % Normal 3-12 [facility] Comment on above: Performed By: #### C DP, FT4, TSH, SSARO, SSBLA #### [address] [address] Director Of Elementary Education: Mark Hernadez MD Neutrophil (Seg) 65 % Normal 36-65 [facility] Comment on above: Performed By: #### C DP, FT4, TSH, SSARO, SSBLA #### [address] [address] Director Of Elementary Education: Mark Hernadez MD NRBC Automated 0.0 per 100 WBC Normal 0.0 [facility] Comment on above: Performed By: #### C DP, FT4, TSH, SSARO, SSBLA #### [address] [address] Director Of Elementary Education: Mark Hernadez MD Platelet mean volume (Bld) [Entitic vol] 9.8 fL Normal 8.1-13.5 [facility] Comment on above: Performed By: #### C DP, FT4, TSH, SSARO, SSBLA #### [address] [address] Director Of Elementary Education: Mark Hernadez MD Platelets (Bld) [#/Vol] 265 10*3/uL Normal 138-453 [facility] Comment on above: Performed By: #### C DP, FT4, TSH, SSARO, SSBLA #### [address] [address] Director Of Elementary Education: Mark Hernadez MD RBC (Bld) [#/Vol] 3.29 10*6/uL Low 3.95-5.11 [facility] Comment on above: Performed By: #### C DP, FT4, TSH, SSARO, SSBLA #### [address] [address] Director Of Elementary Education: Mark Hernadez MD WBC (Bld) [#/Vol] 6.7 10*3/uL Normal 3.5-11.3 [facility] Comment on above: Performed By: #### C DP, FT4, TSH, SSARO, SSBLA #### [facility] [address] [place] [address] Director Of Elementary Education: Mark Hernadez MD Auto Diff Performed NOT REPORTED Normal [facility] Comment on above: Performed By: #### C DP, FT4, TSH, SSARO, SSBLA #### [facility] [address] [place] [address] Director Of Elementary Education: Mark Hernadez MD Platelet Comment NOT REPORTED Normal [facility] Comment on above: Performed By: #### C DP, FT4, TSH, SSARO, SSBLA #### [facility] [address] [place] [address] Director Of Elementary Education: Mark Hernadez MD RBC morphology finding Nom (Bld) NOT REPORTED Normal [facility] Comment on above: Performed By: #### C DP, FT4, TSH, SSARO, SSBLA #### [facility] [address] [place] [address] Director Of Elementary Education: Mark Hernadez MD WBC Morphology NOT REPORTED Normal [facility] Comment on above: Performed By: #### C DP, FT4, TSH, SSARO, SSBLA #### [address] [address] Director Of Elementary Education: Mark Hernadez MD No Panel Informationon 10-05 [facility] T4, FREEon 10-05-2021 Thyroxine, Free 1.04 ng/dL 0.93 - 1.70 ng/dL [facility] TSH without Reflexon 021 TSH Qn 1.94 m[IU]/L [facility] TYPE AND SCREENon 10-05-2021 ABO/Rh Positive [facility] Arm Band Number [id number] [facility] Expiration Date 10/08/2021,2359 [facility] [place] Thyroid Stim. Horm.on 12-23- 2021 TSH Qn 1.94 m[IU]/L Normal 0.30-5.00 [facility] Comment on above: Performed By: #### C DP, FT4, TSH, SSARO, SSBLA #### [employer] [facility] [place] [address] Director Of Elementary Education: Mark Hernadez MD Thyroxine, Freeon 10-05-2021 Thyroxine, Free 1.04 ng/dL Normal 0.93-1.70 [facility] Comment on above: Performed By: #### C DP, FT4, TSH, SSARO, SSBLA #### [facility] [address] [place] [address] [id number] Director Of Elementary Education: Mark Hernadez MD Type + Screenon 10-05-2021 Type + Screen Sample Expiration 10/08/2021,2359 Arm Band Number [id number] ABO/Rh(D) O POSITIVE Antibody Screen NEGATIVE Normal [facility] Comment on above: Performed By: #### T YS #### [facility] [address] [place] [address] Director Of Elementary Education: Mark Hernadez MD US PREG BIOPHY W [...] by: FERN CALZADA Date: 2021-10-05 13:16 Normal [facility] US PREG GROWTHon 10-05-2021 US PREG [...] (3rd percentile). 3. Slightly thickened appearance of Crookston's jelly surrounding the umbilical cord; nonspecific but can be associated with gestational diabetes. Report placed in the stat call folder. Electronically authenticated by: FERN CALZADA Date: 2021-10-05 13:22 Normal [facility] CBC AUTO DIFFon 09-05-2021 BASO # 0.0 103/ul Normal 0.0-0.1 [facility] Comment on above: Performed By: #### Nora SALINAS #### [facility] [address] [place], [place] [address] Nancy Veronique Basophils/100 WBC (Bld) 0.3 % Normal 0.2-2.0 [facility] Comment on above: Performed By: #### Nora SALINAS #### [facility] [address] [place], [place] [address] Nancy Veronique EO # 0.1 103/ul Normal 0.0-0.7 [facility] Comment on above: Performed By: #### V RITA #### [facility] [address] [place], [place] [address] Nancy Veronique Eosinophils/100 WBC (Bld) 0.8 % Critically low 0.9-7.0 [facility] Comment on above: Performed By: #### V RITA #### [facility] [address] [place], [place] [address] Nancy Veronique Erythrocyte distribution width (RBC) [Ratio] 13.5 % Normal 11.0-15.0 [facility] Comment on above: Performed By: #### Nora SALINAS #### [facility] [address] [place] [address] Nancy Piper Hematocrit (Bld) [Volume fraction] 33.0 % Critically low 36.0-48.0 [facility] Comment on above: Performed By: #### Nora SALINAS #### [facility] [address] [place] [address] Nancy Piper Hemoglobin (Bld) [Mass/Vol] 10.8 g/dL Critically low 12.0-16.0 [facility] Comment on above: Performed By: #### Nora SALINAS #### [facility] [address] [place] [address] Nancy Piper IG # 0.05 10e3/ul Critically high 0.00-0.03 [facility] Comment on above: Performed By: #### Nora SALINAS #### [facility] [address] [place] [address] Nancypatricia Piper IG % 0.6 % Critically high 0.0-0.5 [facility] Comment on above: Performed By: #### Nora SALINAS #### [facility] [address] [place] [address] Nancy Piper LYMPH # 1.4 103/ul Normal 1.2-3.8 [facility] Comment on above: Performed By: #### Nora SALINAS #### [facility] [address] [place] [address] Nancy Piper Lymphocytes/100 WBC (Bld) 17.1 % Critically low 20.5-60.0 [facility] Comment on above: Performed By: #### Nora SALINAS #### [facility] [address] [place] [address] Nancy Veronique MANUAL DIFF REQ NO Normal [facility] Comment on above: Performed By: #### Nora SALINAS #### [facility] [address] [place] [address] Nancy Kellyen MCH (RBC) [Entitic mass] 31.4 pg Normal 26.7-34.0 [facility] Comment on above: Performed By: #### Nora SALINAS #### [facility] [address] [place], [place] [address] Nancy Piper MCHC (RBC) [Mass/Vol] 32.7 g/dL Normal 29.9-35.2 [facility] Comment on above: Performed By: #### Nora SALINAS #### [facility] [address] [place] [phone] Nancy Piper MCV (RBC) [Entitic vol] 95.9 fL Normal 81.0-99.0 [facility] Comment on above: Performed By: #### Nora SALINAS #### [facility] [address] [place], [place] [phone] Nancy Piper MONO # 0.5 103/ul Normal 0.3-0.8 [facility] Comment on above: Performed By: #### Nora SALINAS #### [facility] [address] [place], [place] [phone] Nancy Piper Monocytes/100 WBC (Bld) 6.3 % Normal 1.7-12.0 [facility] Comment on above: Performed By: #### Nora SALINAS #### [facility] [address] [place], [place] [phone] Nancy Kellyen NEUT # 5.9 103/ul Normal 1.4-6.5 [facility] Comment on above: Performed By: #### Nora SALINAS #### [facility] [address] [place], [place] [phone] Nancypatricia Piper Neutrophils/100 WBC (Bld) 74.9 % Normal 43.0-75.0 [facility] Comment on above: Performed By: #### Nora SALINAS #### [facility] [address] [place], [place] [phone] Nancy Piper Platelet mean volume (Bld) [Entitic vol] 9.9 fL Normal 9.5-13.5 [facility] Comment on above: Performed By: #### Nora SALINAS #### [facility] [address] [place] [phone] Nancy Veronique PLT 243 103/ul Normal 150-450 [facility] Comment on above: Performed By: #### V RITA #### [facility] [address] [place], [place] [address] Nancy Veronique RBC 3.44 106/ul Critically low 4.20-5.40 [facility] Comment on above: Performed By: #### V RITA #### [facility] [address] [place], [place] [address] Nancy Veronique WBC 7.9 103/ul Normal 4.0-11.0 [facility] Comment on above: Performed By: #### V RITA #### [facility] [address] [place], [place] [address] Nancy Kellyen GLUCOSE - 1HRon 09-05-2021 Glucose [Mass/Vol] 98 mg/dL Normal 74-106 [facility] Comment on above: Performed By: #### G LU1HR #### [facility] [address] [place], [place] [address] Dr. Leonardo Khalil US PREG ANATOMY SINGLEon [...] by ultrasound, 88th percentile by expected) FL/AC: 0.839881 FL/BPD: 0.480014 HC/AC: 1.562509 GESTATIONAL AGE: Age by EDC: 20 weeks, 6 days ÁLVARO by EDC: 11/28/2021 Age by current US: 21 weeks, 3 days ÁLVARO by current US: 11/24/2021 IMPRESSION: 1. Single live intrauterine with growth detailed above. Normal [facility] Pap IG, rfx Aptima HPV, rfx 16/18,45 + Con 05-22-2021 . . Normal [facility] Comment on above: Result Comment: Perf ormed at: WB Performed By: #### V RITA #### [facility] [address] [place] [address] Nancy Piper Chlamydia, Nuc. Acid Amp Negative Normal Negative [facility] Comment on above: Result Comment: Perf ormed at: =G Performed By: #### V RITA #### [facility] [address] [place] [address] Nancy Piper DIAGNOSIS: Comment Normal [facility] Comment on above: Result Comment: NEGA TIVE FOR INTRAEPITHELIAL LESION OR MALIGNANCY. Performed at: WB Performed By: #### V RITA #### [facility] [address] [place] [address] Nancy Piper Gonococcus, Nuc. Acid Amp Negative Normal Negative [facility] Comment on above: Result Comment: Perf ormed at: =G Performed By: #### V RITA #### [facility] [address] [place] [address] Nancy Piper HPV Aptima Negative Normal Negative [facility] Comment on above: Result Comment: This nucleic acid amplification test detects fourteen high-risk HPV types (16,18,31,33,35,39,45,51,52,56,58,59,66,68) without differentiation. Performed at: =G Performed By: #### V RITA #### [facility] [address] [place] [address] Nancy Piper Methodology: Comment Normal [facility] Comment on above: Result Comment: This liquid based ThinPrep(R) pap test was screened with the use of an image guided system. Performed at: WB Performed By: #### V ARCEL #### [facility] [address] [place], [place] [phone] Nancy Piper Note: Comment Normal [facility] Comment on above: Result Comment: The [...] WB Performed By: #### V ARCEL #### [facility] [address] [place] [address] Nancy Piper Performed by: Comment Normal [facility] Comment on above: Result Comment: Irving Alarcon, Zoogler (ASCP) Performed at: WB Performed By: #### V ARCEL #### [facility] [address] [place] [address] Nancy Piper Specimen adequacy: Comment Normal [facility] Comment on above: Result Comment: Sati sfactory for evaluation. No endocervical component is identified. Performed at: WB Performed By: #### V ARCEL #### [facility] [address] [place], [place] [phone] Nancy Piper CULTURE URINEon 05-18-2021 CULTURE URINE Culture Observations : LIGHT GROWTH OF MIXED GENITAL KRISTEL. NO POTENTIAL PATHOGENS SEEN. Normal [facility] Comment on above: Performed By: #### U RCX #### [facility] [address] [place] [address] Nancy Piper UA RANDOM W/MICROSCOPICon BACTERIA NONE SEEN Normal NONE SEEN [facility] Comment on above: Performed By: #### R PRQ #### [facility] [address] [place], [place] [phone] Nancypatricia Piper Bilirubin Ql (U) Negative Normal NEGATIVE [facility] Comment on above: Performed By: #### R PRQ #### [facility] [address] [place] [address] Nancypatricia Piper CAST NONE SEEN Normal NONE SEEN [facility] Comment on above: Performed By: #### R PRQ #### [facility] [address] [place] [address] Nancy Veronique Clarity (U) CLEAR Normal CLEAR [facility] Comment on above: Performed By: #### R PRQ #### [facility] [address] [place] [address] Nancy Veronique Color (U) LT. YELLOW Normal YELLOW [facility] Comment on above: Performed By: #### R PRQ #### [facility] [address] [place] [address] Nancy Veronique Crystals LM Nom (Urine sed) NONE SEEN Normal NONE SEEN [facility] Comment on above: Performed By: #### R PRQ #### [facility] [address] [place] [address] Nancy Veronique Epithelial cells LM Ql (Urine sed) FEW Abnormal NONE SEEN /RARE [facility] Comment on above: Performed By: #### R PRQ #### [facility] [address] [place] [address] Nancy Veronique Glucose Ql (U) Negative Normal NEGATIVE [facility] Comment on above: Performed By: #### R PRQ #### [facility] [address] [place] [address] Nancy Veronique Hemoglobin Ql (U) Negative Normal NEGATIVE [facility] Comment on above: Performed By: #### R PRQ #### [facility] [address] [place] [address] Nancy Veronique Ketones Ql (U) Negative Normal NEGATIVE [facility] Comment on above: Performed By: #### R PRQ #### [facility] [address] [place] [address] Nancy Veronique LEUKOCYTES Negative Normal NEGATIVE [facility] Comment on above: Performed By: #### R PRQ #### [facility] [address] [place] [address] Nancy Veronique MUCOUS TRACE Abnormal NONE SEEN [facility] Comment on above: Performed By: #### R PRQ #### [facility] [address] [place] [address] Nancy Veronique Nitrite Ql (U) Negative Normal NEGATIVE [facility] Comment on above: Performed By: #### R PRQ #### [facility] [address] [place], [place] [phone] Nancy Piper pH (U) 5.5 [pH] Normal 5-9 [facility] Comment on above: Performed By: #### R PRQ #### [facility] [address] [place] [address] Nancy Piper RBC NONE SEEN Abnormal 0-2 [facility] Comment on above: Performed By: #### R PRQ #### [facility] [address] [place] [address] Nancy Piper SPEC GRAVITY >=1.030 Abnormal 1.005-<=1.025 [facility] Comment on above: Performed By: #### R PRQ #### [facility] [address] [place] [address] Nancy Piper UA PROTEIN Negative Normal NEGATIVE/ TRACE [facility] Comment on above: Performed By: #### R PRQ #### [facility] [address] [place] [address] Nancy Piper Urobilinogen Qn (U) 0.2 {Travis'U}/dL Normal 0.2 - 1. 0 [facility] Comment on above: Performed By: #### R PRQ #### [facility] [address] [place] [address] Nancy Piper WBC NONE SEEN Normal NONE SEEN [facility] Comment on above: Performed By: #### R PRQ #### [facility] [address] [place] [address] Nancy Piper HEMOGLOBINOPATHY FRACTIONATI ON CASCADEon 05-17-2021 HGB A 97.8 % Normal 96.4-98.8 [facility] Comment on above: Performed By: #### H GBCAS #### [facility] [address] [place] [address] Nancy Piper HGB A2 2.2 % Normal 1.8-3.2 [facility] Comment on above: Performed By: #### H GBCAS #### [facility] [address] [place] [address] Nancy Piper HGB F 0.0 % Normal 0.0-2.0 [facility] Comment on above: Performed By: #### H GBCAS #### [facility] [address] [place] [address] Nancy Piper HGB S 0.0 % Normal 0.0 [facility] Comment on above: Performed By: #### H GBCAS #### [facility] [address] [place] [address] Nancy Piper Interpretation: Comment Normal [facility] Comment on above: Result Comment: Norm al hemoglobin present; no hemoglobin variant or thalassemia observed. Performed By: #### H GBCAS #### [facility] [address] [place] [address] Nancy Piper HEP B SURFACE ANTIGEN SCREEN on 05-17-2021 HBsAg Screen Negative Normal Negative [facility] Comment on above: Performed By: #### H BSANS #### [facility] [address] [place] [address] Nancy Piper HEPATITIS C ANTIBODYon 05-17 Hep C Virus Ab <0.1 Normal 0.0-0.9 [facility] Comment on above: Result Comment: Nega tive: < 0.8 Indeterminate: 0.8 - 0.9 Positive: > 0.9 . The CDC recommends that a positive HCV antibody result be followed up with a HCV Nucleic Acid Amplification test (786329). Performed By: #### H CV #### [facility] [address] [place] [address] Nancy Piper HIV 1 AND 2 WITH REFLEXon HIV Screen 4th Generation wRfx Non-Reactive Normal Non Reactive [facility] Comment on above: Performed By: #### V ARCEL #### [facility] [address] [place] [address] Nancy Piper RPR QUANTon 05-17-2021 Rapid Plasma Reagin, Quant Non-Reactive Normal NonRea<1:1 [facility] Comment on above: Performed By: #### R PRQ #### [facility] [address] [place] [address] Nancy Piper RUBELLA AB IGGon 05-17-2021 Rubella Antibodies, IgG 4.07 index Normal Immune >0.99 [facility] Comment on above: Result Comment: Non- immune <0.90 Equivocal 0.90 - 0.99 Immune >0.99 Performed By: #### R UBLORIEG #### [facility] [address] [place] [address] Nancy Piper VARICELLA IGG ABon Varicella Zoster IgG 1067 index Normal Immune >165 [facility] Comment on above: Result Comment: Nega tive <135 Equivocal 135 - 165 Positive >165 A positive result generally indicates exposure to the pathogen or administration of specific immunoglobulins, but it is not indication of active infection or stage of disease. Performed By: #### V RITA #### [facility] [address] [place] [address] Nancy Piper CBC AUTO DIFFon 05-16-2021 BASO # 0.0 103/ul Normal 0.0-0.1 [facility] Comment on above: Performed By: #### C BC #### [facility] [address] [place] [address] Nancy Kellyen Basophils/100 WBC (Bld) 0.3 % Normal 0.2-2.0 [facility] Comment on above: Performed By: #### C BC #### [facility] [address] [place] [address] Nancy Piper EO # 0.1 103/ul Normal 0.0-0.7 [facility] Comment on above: Performed By: #### C BC #### [facility] [address] [place] [address] Nancy Piper Eosinophils/100 WBC (Bld) 0.8 % Critically low 0.9-7.0 [facility] Comment on above: Performed By: #### C BC #### [facility] [address] [place] [address] Nancy Piper Erythrocyte distribution width (RBC) [Ratio] 12.6 % Normal 11.0-15.0 [facility] Comment on above: Performed By: #### C BC #### [facility] [address] [place], [place] [phone] Nancy Veronique Hematocrit (Bld) [Volume fraction] 36.7 % Normal 36.0-48.0 [facility] Comment on above: Performed By: #### C BC #### [facility] [address] [place], [place] [phone] Nancy Veronique Hemoglobin (Bld) [Mass/Vol] 12.5 g/dL Normal 12.0-16.0 [facility] Comment on above: Performed By: #### C BC #### [facility] [address] [place], [place] [phone] Nancy Veronique IG # 0.03 10e3/ul Normal 0.00-0.03 [facility] Comment on above: Performed By: #### C BC #### [facility] [address] [place] [address] Nancy Veronique IG % 0.3 % Normal 0.0-0.5 [facility] Comment on above: Performed By: #### C BC #### [facility] [address] [place] [address] Nancy Veronique LYMPH # 1.7 103/ul Normal 1.2-3.8 [facility] Comment on above: Performed By: #### C BC #### [facility] [address] [place], [place] [phone] Nancypatricia Piper Lymphocytes/100 WBC (Bld) 16.9 % Critically low 20.5-60.0 [facility] Comment on above: Performed By: #### C BC #### [facility] [address] [place], [place] [phone] Nancypatricia Kellyen MANUAL DIFF REQ NO Normal [facility] Comment on above: Performed By: #### C BC #### [facility] [address] [place], [place] [phone] Nancy Veronique MCH (RBC) [Entitic mass] 30.7 pg Normal 26.7-34.0 [facility] Comment on above: Performed By: #### C BC #### [facility] [address] [place], [place] [phone] Nancypatricia Kellyen MCHC (RBC) [Mass/Vol] 34.1 g/dL Normal 29.9-35.2 [facility] Comment on above: Performed By: #### C BC #### [facility] [address] [place], [place] [phone] Nancy Piper MCV (RBC) [Entitic vol] 90.2 fL Normal 81.0-99.0 [facility] Comment on above: Performed By: #### C BC #### [facility] [address] [place], [place] [phone] Nancypatricia Kellyen MONO # 0.7 103/ul Normal 0.3-0.8 [facility] Comment on above: Performed By: #### C BC #### [facility] [address] [place], [place] [phone] Nancy Piper Monocytes/100 WBC (Bld) 6.5 % Normal 1.7-12.0 [facility] Comment on above: Performed By: #### C BC #### [facility] [address] [place] [place] [address] Nancy Kellyen NEUT # 7.6 103/ul Critically high 1.4-6.5 [facility] Comment on above: Performed By: #### C BC #### [facility] [address] [place], [place] [phone] Nancy Piper Neutrophils/100 WBC (Bld) 75.2 % Critically high 43.0-75.0 [facility] Comment on above: Performed By: #### C BC #### [facility] [address] [place], [place] [phone] Nancypatricia Piper Platelet mean volume (Bld) [Entitic vol] 10.0 fL Normal 9.5-13.5 [facility] Comment on above: Performed By: #### C BC #### [facility] [address] [place], [place] [phone] Nancy Veronique PLT 275 103/ul Normal 150-450 [facility] Comment on above: Performed By: #### C BC #### [facility] [address] [place], [place] [phone] Nancy Veronique RBC 4.07 106/ul Critically low 4.20-5.40 [facility] Comment on above: Performed By: #### C BC #### [facility] [address] [place], [place] [address] Nancypatricia Piper WBC 10.2 103/ul Normal 4.0-11.0 [facility] Comment on above: Performed By: #### C BC #### [facility] [address] [place], [place] [address] Nancypatricia Piper GLYCOHEMOGLOBIN A1Con 2020 ADA RECOMMENDATION ADA THERAPEUTIC TARGET 6.0 - 7.0 ACTION SUGGESTED > 7.0 Normal [facility] Comment on above: Performed By: #### A 1C #### [facility] [address] [place] [phone] Nancy Veronique Glucose [Mass/Vol] 91 mg/dL Normal [facility] Comment on above: Performed By: #### A 1C #### [facility] [address] [place] [phone] Nancypatricia Piper HbA1c (Bld) [Mass fraction] 4.8 % Normal <=6.0 [facility] Comment on above: Performed By: #### A 1C #### [facility] [address] [place] [phone] Nancypatricia Piper PREG QUANT HCGon 05-16-2021 HCG QUANT 64627 mIU/mL Normal [facility] Comment on above: Result Comment: Dilu mara Performed By: #### Nora SALINAS #### [facility] [address] [place], [place] [phone] Nancypatricia Piper HCG RANGE SEE BELOW Normal [facility] Comment on above: Result Comment: 5-50 0-1 WEEK 40-300 1-2 WEEKS 100-1,000 2-3 WEEKS 500-6,000 3-4 WEEKS 5,000-200,000 1-2 MONTHS 10,000-100,000 2-3 MONTHS 3,000-50,000 2ND TRIMESTER 1,000-50,000 3RD TRIMESTER Performed By: #### Nora SALINAS #### [facility] [address] [place], [place] [phone] Nancy Veronique TYPE AND SCREENon 05-16-2021 TYPE AND SCREEN Negative Normal [facility] Comment on above: Performed By: #### R PRQ #### [facility] [address] [place] [address] Nancy Piper US PREG TVon 04-18-2021 US [...] by: CHELITA CARDENAS Date: 2021-04-18 12:02 Normal [facility] Vital Signs Date Time Vital Sign Value Performing Clinician Evan luna 10-06-2021 09:06-0500 Body temperature 98.2 [degF] Elvia Donis DO Work Phone: [facility] 10-06-2021 09:06-0500 Diastolic blood pressure 74 mm[Hg] Elvia Donis DO Work Phone: [facility] 10-06-2021 09:06-0500 Heart rate 84 /min Elvia Donis DO Work Phone: [facility] 10-06-2021 09:06-0500 Respiratory rate 17 /min Elvia Donis DO Work Phone: [facility] 10-06-2021 09:06-0500 SaO2% (BldA) [Mass fraction] 99 % Elvia Donis DO Work Phone: [facility] 10-06-2021 09:06-0500 Systolic blood pressure 121 mm[Hg] Elvia Donis DO Work Phone: [facility] 10-05-2021 18:40-0500 Body height 157.5 cm Elvia Donis DO Work Phone: [employer] 10-05-2021 18:40-0500 Body mass index (BMI) [Ratio] 30.36 kg/m2 El[facility] Donis DO [facility] 10-05-2021 18:40-0500 Body weight 75.3 kg Elvia Donis DO Work Phone: [facility] Encounters Encounter Date Encounter Type Care Provider Facility Start: 05-21-2024 End: 05-21-2024 ambulatory RADHA JIO Not Available Start: 04-23-2024 End: 04-23-2024 ambulatory RADHA JOVANNI Not Available Start: 04-22-2024 ambulatory PRINCIPAL PROGRAMMER Yola Camarena Facil ity:[facility] [place] Start: 03-19-2024 End: 03-19-2024 ambulatory RADHA JOVANNI Not Available Start: 11-12-2023 End: 11-12-2023 ambulatory RADHA JOVANNI Not Available Start: 05-07-2023 ambulatory PRINCIPAL PROGRAMMER Yola Camarena Facilit y:[facility] Start: 04-24-2022 End: 04-24-2022 Off-Site [facility] Start: 03-22-2022 End: 03-22-2022 Off-Site [facility] Start: 11-09-[address] DOCTOR BURGOS Facility :[facility] Start: 11-06-2021 End: 11-06-[address] RADHA HOOVER Facility:[facility] Start: 11-03-2021 End: 11-03-[address] RADHA HOOVER Facility:[facility] Start: 11-02-2021 End: 11-02-[address] CHELITA CARDENAS Facility:[facility] Start: 10-30-2021 End: 10-30-[address] PEG LACEY Facility:[facility] Start: 10-26-2021 End: 10-26-[address] CHELITA CARDENAS Facility:[facility] Start: 10-24-2021 End: 10-25-2021 ambulatory AUGIE MENCHACAY [facility] Start: 10-19-2021 End: 10-19-[address] EPG LACEY Facility:[facility] Start: 10-12-2021 End: 10-12-[address] PEG LACEY Facility:[facility] Start: 10-06-2021 End: 10-06-[address] RADHA HOOVER Facility:[facility] Start: 10-05-2021 End: 10-06-2021 [facility] Start: 10-05-2021 End: 10-06-2021 Subsequent hospital visit [...] DTaP/Tdap/Td vaccine (2 - Td or Tdap) [facility] Start: 08-10-2021 COVID-19 Vaccine (3 - Booster for Pfizer series) COVID-19 Vaccine (3 - Booster for Pfizer series) [facility] Start: 06-14-2021 Influenza vaccination Flu vaccine (# 1) [facility] Start: 2019 Screening for malign ant neoplasm of cervix [facility] Start: 2010 Screening for malign ant neoplasm of cervix Pap smear [facility] Start: 2004 HIV screening HIV screen [facility] Start: 1990 Varicella vaccine (1 of 2 - 2-dose childhood series) Varicella vaccine (1 of 2 - 2-dose childhood series) [facility] Start: 1989 Hepatitis C screening Hepatitis C sc ree [facility] End: 10-06-2021 MISCELLANEOUS TESTING MISCELLANEOUS TESTING Lab STAT Once for 1 Occurrences starting 10/06/2021 until 10/06/2021 [employer] Phone: Comment on above: Once for 1 Occurrenc es starting 10/06/2021 until 10/06/2021 Nonrebreather mask oxygen Nonreb reather mask oxygen Respiratory Care Routine As directed - RT (PRN) until discontinued starting 10/05/2021 [employer] Phone: Comment on above: As directed - RT (RI N) until discontinued starting 10/05/2021 End: 10-05-2021 SJOGRENS SYNDROME-A EXTRACTABLE NUCLEAR ANTIBODY [employer] Phone: Comment on above: One Time for 1 Occur rences starting 10/05/2021 until 10/05/2021 End: 10-05-2021 SJOGRENS SYNDROME-B EXTRACTABLE NUCLEAR ANTIBODY [employer] Phone: Comment on above: One Time for 1 Occur rences starting 10/05/2021 until 10/05/2021 Immunizations Immunization Date Immunization Notes Care Provider Giovany hargrove 10-19-2021 influenza virus vaccine, unspecified formulation Ana Matimelaugustin [facility] [place] 10-19-2021 tetanus toxoid, redu garry diphtheria toxoid, and acellular pertussis vaccine, adsorbed Ana [facility] 02-08-2021 SARS-CoV-2 (COVID-19 ) mRNA BNT-162b2 vax [facility] 01-18-2021 SARS-CoV-2 (COVID-19 ) mRNA BNT-162b2 vax [facility] 08-26-2020 influenza, unspecifi ed formulation [facility] Payers Date Payer Category Payer Unknown [id number] 1989 Unknown [id number] 2.16.8 40.1.041063.3.579.2.175 1989 Unknown [id number] 2.16.8 40.1.947982.3.579.2.175 1989 Unknown [id number] 2.16.84 0.1.456754.3.579.2.593 1989 Unknown [id number] 2.16.84 0.1.430821.3.579.2.593 1989 Unknown [id number] 2.16.84 0.1.652944.3.579.2.593 1989 Unknown [id number] 2.16.84 0.1.162396.3.579.2.593 1989 Unknown [id number] 2.16.84 0.1.367932.3.579.2.593 1989 Unknown [id number] 2.16.84 0.1.489660.3.579.2.593 1989 Unknown [id number] 2.16.84 0.1.505084.3.579.2.593 1989 Unknown [id number] 2.16.84 0.1.014042.3.579.2.593 1989 Unknown [id number] 2.16.84 0.1.091449.3.579.2.593 1989 Unknown [id number] 2.16.84 0.1.245666.3.579.2.593 1989 Unknown [id number] 2.16.84 0.1.658461.3.579.2.593 1989 Unknown [id number] 2.16.84 0.1.811508.3.579.2.593 1989 Unknown [id number] 2.16.84 0.1.472490.3.579.2.593 1989 Unknown [id number] 2.16.84 0.1.408149.3.579.2.593 1989 Unknown [id number] 2.16.84 0.1.618237.3.579.2.593 1989 Unknown [id number] 2.16.8 40.1.501194.3.579.2.727 1989 Unknown [id number] 2.16.8 40.1.512136.3.579.2.727 1989 Unknown [id number] 2.16.84 0.1.774287.3.579.2.1259 1989 Unknown [id number] 2.16.84 0.1.994352.3.579.2.1259 1989 Unknown [id number] 2.16.84 0.1.535671.3.579.2.1259 1989 Unknown [id number] 2.16.84 0.1.948816.3.579.2.1259 1959 Self-pay Unknown [id number] 2.16.84 0.1.299653.3.579.2.593 Social History Date Type Detail Facility Start: 10-05-2021 End: 03-22-2022 Tobacco smoking status NHIS [facility] Work Phone: Start: 10-05-2021 Tobacco use and exposure Smokeless tobacco non-user [facility] Work Phone: Start: 10-05-2021 Alcohol intake Ex-drinker (finding) [facility] Work Phone: Start: 03-07-2021 [facility] Work Phone: Start: 1990 Sex Assigned At Not [facility] file [facility] Work Phone: Tobacco smoking status Never [facility] Sex Assigned At Female [facility] Functional Status Date Assessment Result Facility 04-24-2022 Functional Status Telehealth Patient [facility] Discharge instructions 03-22-2022 Note Date & Type Note Facility 03-22-2022 Hospital Discharg e instructions Follow Up Care 03/22/2022 14:50:25 With:Ana Em MD, FAM, MED Address: [address] [place] [phone] Business (1) When:Within 3 Month(s) [facility] Discharge instructions 03-14-2022 Note Date & Type Note Facility 03-14-2022 Hospital Discharg e instructions Follow Up Care 03/14/2022 16:26:08 With:Ana Em MD, FAM, MED Address: [address] [place] [phone] Business (1) When:Within 1 Month(s) [facility] Discharge instructions 10-06-2021 Instructions Note [...] Where can you learn more? Go to [email or web address] and sign in to your [employer] account. Enter A006 in the Search Health Information box to learn more about Learning About Low Amniotic Fluid. If you do not have an account, please click on the Sign Up Now link. Current as of: March 29, 2021 Content Version: 13.1 [employer] Care instructions adapted under license by [facility]. If you have questions about a medical condition or this instruction, always ask your healthcare professional. [employer] disclaims any warranty or liability for your use of this information. documented in this encounter [facility] Work Phone: History of Present illness Narrative [...] will get second dose of celestone at [facility]. Follow up with MFM on Saturday. Follow up with peds cardio in 1-2 weeks. Follow up with Dr. Hoover in one week. Attending in agreement with plan of care. Daria Evans DO CHEMICAL MIXER Resident, PGY3 [place], [place] 10/06/2021, 1:35 PM Maternal Medicine Ultrasound [...] to see the patient. Follow up with [facility] outpatient on Tuesday 10/09 Dr. Guevara updated, OB Residents updated, RN updated. Daria Evans DO Senior Painter Resident 10/06/2021, 10:06 AM Pt c/o headache related to lack of sleep or hunger, tylenol given CHEMICAL MIXER PROGRESS NOTE Carla Mendoza is a 31 [...] # 1.73 1.10 - 3.70 k/uL Absolute [place] # 0.52 0.10 - 1.20 k/uL Absolute Eos # 0.05 0.00 - 0.44 k/uL Basophils Absolute <0.03 0.00 - 0.20 k/uL Absolute Immature Granulocyte 0.03 0.00 - 0.30 k/uL WBC Morphology NOT REPORTED RBC Morphology NOT REPORTED Platelet Estimate NOT REPORTED TYPE AND SCREEN Collection Time: 10/05/21 8:21 PM Result Value Ref Range Expiration Date 10/08/2021,2359 Arm Band Number [id number] ABO/Rh O POSITIVE Antibody Screen NEGATIVE TSH [...] Will update attending physician. Ellis Colmenares DO Senior Painter Resident 10/06/2021, 5:35 AM documented in this encounter [employer] Phone: Evaluation + Plan note Note Date & Type Note Facility Evaluation + Plan note Future Appointments Appointment Date:04/24/2022 01:20:00 PM Scheduled Provider:Ana Em MD Location:[facility] Appointment Type: Video Visit [facility] Evaluation note Note Date & Type [...] episode of care documented in this encounter [employer] Phone: Hospital course Narrative Note Date & Type Note Facility Hospital course Narrative No data available for this section [facility] Progress note Note Date & Type Note Facility Progress note No data available for this section [facility] Advance Directives No Advanced Directives Records FoundLatest Code Status on File Code Status Date Activated Date Inactivated Comments Full Code 10/05/2021 7:44 PM Summary Purpose Family History No Family History Records FoundNo Family History Records FoundNo Family History Records FoundNo Family History Records Found Additional Source Comments Reason for Visit (unrecogniz ed section and content) Reason Comments Other oligo, arrhyth arelis from [facility] Scheduled Active and Recently Administ ered [...]
Care Teams (unrecognized sec tion and content) Fireman Helper Relationship Specialty Start Date End Date Augie Pedroza MD [address] [place] [phone] PCP - General Family Medicine 10/05/21 INFORMATION SOURCE (unrecogn ized section and content) DATE CREATED AUTHOR 11/08/2021 [facility] DATE CREATED AUTHOR AUTHOR'S ORGANIZ ATION 01/22/2022 [facility] DATE CREATED AUTHOR AUTHOR'S ORGANIZ ATION 04/28/2024 [facility] DATE CREATED AUTHOR AUTHOR'S ORGANIZ ATION 05/24/2024 [facility] FOR RECORDS PERTAINING TO PATIENTS WHO [...] BE BASED ON THE PRIMARY CLINICAL RECORDS. [employer] provides no warranty or guarantee of the accuracy or completeness of information in this document.
== END 2024-06-17 09:47 | disposition home or self-care (01) ==
LOC: LAB 09:48
PROVIDERS: PCP Nurse Practitioner; Visit Provider Obstetrics & Gynecology
DX: Z34.92 Encounter for supervision of normal pregnancy, unspecified, second trimester (principal)
CPT/HCPCS: 36415; 82105

== ENCOUNTER 2024-07-21 08:36 | Outpatient (OUT) | payer OTHER, SELFPAY ==
--- NOTE | 2024-07-21 08:39 | US_ITS ---
[address] [address] Patient Name: JUAN FRANCISCO MENDOZA MRN: [id number] date: 1990 Sex: F Assigned Patient Location: [facility] Current Patient Location: [facility] Accession/Order Number: [id number] Exam Date: 07/21/2024 08:39 Report Date: 07/21/2024 12:27 At the request of: RADHA BAIG Procedure: US OB growth EXAMINATION: US OB growth HISTORY: HISTORY OF OLIGOHYDRAMNIOS COMPARISON: Ultrasound OB anatomy 06/17/2024 FINDINGS: Heart Rate: 143 bpm Amniotic Fluid Volume: 12.6 cm; normal range. Number: 1 Position: CEPHALIC BIOMETRY: BPD: 6.79 cm; 27 weeks 2 days; 65.60 % HC: 26.05 cm; 28 weeks 2 days; 80.50 % AC: 24 cm; 28 weeks 2 days; 87.90 % FL: 4.99 cm; 26 weeks 6 days; 44 % EFW: 1123.95 g; 84.40 % FL/AC: 20.79 FL/BPD: 73.49 HC/AC: 1.09 GESTATIONAL AGE: Age by EDC: 26 weeks 4 days ÁLVARO by EDC: 2024-10-23 Age by US: 27 weeks 5 days ÁLVARO by US: 2024-10-15 US/US OB growth IMPRESSION: 1. Single live intrauterine with growth detailed above. Electronically authenticated by: FERN CALZADA Date: 07/21/2024 12:27
--- OUTSIDE RECORDS SUMMARY | 2024-07-21 08:42 | XMS_ITS | CCD ---
Author Organization [facility] Care Team Providers Care Airline Mechanic Name Role Phone Augie Pedroza MD Primary Care Provider [phone] ELVIA DONIS Admitting Unavailable ELVIA DONIS Attending Unavailable AUGIE PEDROZA Primary Care Unavailable KI LEAL Consulting Unavailable AUGIE PEDROZA Referring Unavailable AUGIE PEDROZA Primary Care Unavailable THERESA, DR CHELITA Melendez Consulting Unavailable MISC, DR DOSHI Primary Care Unavailable SNEHA, DR GARCIA Attending Unavailable SNEHA, DR GARCIA Admitting Unavailable SNEHA, DR GARCIA Consulting Unavailable KARASIK, DR RUVALCABA Consulting Unavailable KARASIK, DR RUVALCABA Attending Unavailable KARASIK, DR RUVALCABA Admitting Unavailable MISC, DR DOSHI Primary Care Unavailable MISC, DR DOSHI Primary Care Unavailable SNEHA, DR GARCIA Attending Unavailable SNEHA, DR GARCIA Admitting Unavailable SNEHA, DR GARCIA Consulting Unavailable MISC, DR DOSHI Primary Care Unavailable KARASIK, DR RUVALCABA Attending Unavailable KARASIK, DR RUVALCABA Admitting Unavailable KARASIK, DR RUVALCABA Consulting Unavailable KARASIK, DR RUVALCABA Attending Unavailable KARASIK, DR RUVALCABA Admitting Unavailable MISC, DR DOSHI Primary Care Unavailable SNEHA, DR GARCIA Consulting Unavailable ZIEBER, DR FERN Andrade Consulting Unavailable MARTIN SIERRA Consulting Unavailable MISC, DR DOSHI Primary Care Unavailable MARTIN SIERRA Attending Unavailable MARTIN SIERRA Admitting Unavailable REQUEST, NONE LISTED Consulting Unavaila ble MISC, DR DOSHI Primary Care Unavailable REQUEST, NONE LISTED Attending Unavaila ble REQUEST, NONE LISTED Admitting Unavaila ble MARTIN SIERRA Consulting Unavailable JAVIERC, DR DOSHI Primary Care Unavailable MARTIN SIERRA Attending Unavailable MARTIN SIERRA Admitting Unavailable MARTIN SIERRA Consulting Unavailable JAVIERC, DR DOSHI Primary Care Unavailable MARTIN SIERRA Attending Unavailable MARTIN SIERRA Admitting Unavailable THERESA, DR CHELITA Melendez Consulting Unavailable MARTIN SIERRA Primary Care Unavailable MARIELA, MARTIN Attending Unavailable MARIELA, MARTIN Admitting Unavailable MARIELA, MARTIN Consulting Unavailable SNEHA, DR GARCIA Consulting Unavailable MISC, DR DOSHI Primary Care Unavailable SNEHA, DR GARCIA Attending Unavailable SNEHA, DR GARCIA Admitting Unavailable ZIEBER, DR FERN Andrade Consulting Unavailable MISC, DR DOSHI Primary Care Unavailable MARIELA, MARTIN Attending Unavailable MARIELA, MARTIN Admitting Unavailable MARIELA, MARTIN Consulting Unavailable SNEHA, DR GARCIA Attending Unavailable SNEHA, DR GARCIA Admitting Unavailable MISC, DR DOSHI Consulting Unavailable MISC, DR DOSHI Primary Care Unavailable SNEHA, DR GARCIA Consulting Unavailable MISC, DR DOSHI Primary Care Unavailable SNEHA, DR GARCIA Attending Unavailable SNEHA, DR GARCIA Admitting Unavailable ZIEBER, DR FERN Andrade Consulting Unavailable EASLEY, DR CHELITA Melendez Consulting Unavailable MISC, DR DOSHI Primary Care Unavailable SNEHA, DR GARCIA Attending Unavailable SNEHA, DR GARCIA Admitting Unavailable SNEHA, DR GARCIA Consulting Unavailable KARASIK, DR RUVALCABA Consulting Unavailable KARASIK, DR RUVALCABA Attending Unavailable KARASIK, DR RUVALCABA Admitting Unavailable MISC, DR DOSHI Primary Care Unavailable SNEHA, DR GARCIA Consulting Unavailable ZIEBER, DR FERN Andrade Consulting Unavailable Ana Em Primary Care Physician [phone] TOSHA Camarena Attending Unavailable RADHA HOOVER Attending Unavailable RADHA HOOVER Attending Unavailable SNEHA, RADHA Attending Unavailable CHAO PANG Attending Unavailable RADHA HOOVER Attending Unavailable Yola Camarena MD Primary Care Provider [phone] Medications Current Medications Medication Drug Class(es) Dates [...] aspirin 81 mg delayed release oral tablet (3 sources) Platelet Aggregation Inhibitor, Nonsteroidal Anti-inflammatory Drug Start: 10-06-2021 aspirin EC tablet 81 mg BABY ASPIRIN PO Take 81 mg by mouth Active azithromycin 250 mg oral tablet (1 source) [...] q24hr, # 90 tab(s), Refills(s) 2, Pharmacy: [facility], 157.4, cm, 04/24/22 13:18:00 EDT, Height/Length Dosing, 72, kg, 03/22/22 14:14:00 EDT, Weight Dosing Start Date: 04/24/22 Status: Ordered Start: 03-22-2022 take 1 tablet by myah th every twenty-four hours Wellbutrin XL 150 mg/24 hours Tab-ER 150 mg = 1 tab(s), Oral, q24hr, # 30 tab(s), Refills(s) 0, Pharmacy: [facility], 157.4, cm, 03/22/22 14:14:00 EDT, Height/Length Dosing, 72, kg, 03/22/22 14:14:00 EDT, Weight Dosing Start Date: 03/22/22 Status: Ordered ondansetron 4 mg oral tablet (2 sources) Serotonin-3 Receptor Antagonist Start: 04-18-2024 take 1 tablet by mouth three times daily as needed ondansetron (Zofran) 4 MG tablet Take 4 mg by mouth 3 (three) times a day as needed 04/18/2024 Active Start: 09-06-2021 ondansetron (Z OFRAN-ODT) 4 MG disintegrating tablet ondansetron (ZOFRAN-ODT) disintegrating tablet 4 mg (1 source) Start: 10-05-2021 ondansetron (ZOFRAN-ODT) disintegrating tablet 4 mg MV-Min-Fe Fum-FA-DHA ( 1 PO) (1 source) MV-Min- Fe Fum-FA-DHA ( 1 PO) Take by mouth Active Vit-Fe Fumarate-FA ( VITAMINS PO) (1 source) [...] conditions (2 sources) exposure to drug; Translations: [ affected by maternal noxious substance, unspecified] Onset: [...] - Ultrasound Reporton RAD - Ultrasound Report [id number] Normal [facility] GROUP B STREP CULTUREon 10-15 S. agalactiae Ag Ql (Unsp spec) Culture Observations: NEGATIVE FOR GROUP B STREPTOCOCCUS. Normal [facility] Comment on above: Performed By: #### R PRQ #### [facility] [address] [place] [address] Nancy Piper US PREG BIOPHY W NON [...] by: CHELITA CARDENAS Date: 2021-11-02 13:37 Normal [facility] US PREG BIOPHY W NON STRESSo [...] by: CHELITA CARDENAS Date: 2021-10-26 14:34 Normal [facility] US PREG BIOPHY W NON STRESSo [...] by: FERN CALZADA Date: 2021-10-19 14:42 Normal [facility] US PREG BIOPHY W NON STRESSo [...] by: FERN CALZADA Date: 2021-10-12 13:32 Normal [facility] Miscellaneouson 10-09-2021 Send Out Report [facility] Comment on above: Performed By: #### C MIS #### [employer] [address] [place], [place] [id number] Hospital Educator: Mark Hernadez MD SSAon 10-09-2021 SSA <0.3 Normal <7.0 [facility] Comment on above: Result Comment: Reference Range: <7.0 Negative 7.0-10.0 Equivocal >10.0 Positive Performed By: #### C DP, FT4, TSH, SSARO, SSBLA #### [employer] [address] [place], [place] [id number] Hospital Educator: Mark Hernadez [facility] SSB <0.3 Normal <7.0 [facility] Comment on above: Result Comment: Reference Range: <7.0 Negative 7.0-10.0 Equivocal >10.0 Positive Performed By: #### C DP, FT4, TSH, SSARO, SSBLA #### [employer] [address] [place], [place] [id number] Hospital Educator: Mark Hernadez MD Miscellaneouson 10-06-2021 Test Name UNITY NIPT Normal [facility] Comment on above: Performed By: #### C MIS #### [employer] [address] [place], [place] [id number] Hospital Educator: Mark Hernadez MD CBC WITH AUTO DIFFERENTIALon 10-05-2021 Absolute Eos # 0.05 [employer] [facility] th Absolute Immature Granulocyte 0.03 [employer] Absolute Lymph # 1.73 [employer] [facility] Absolute [place] # 0.52 [employer] Basophils (Bld) [#/Vol] 10*3/uL [employer] Basophils/100 WBC (Bld) 0 % 0 - 2 % [employer] Differential Type NOT REPORTED [employer] Eosinophils/100 WBC (Bld) 1 % 1 - 4 % [employer] Hematocrit (Bld) [Volume fraction] 30.1 % Low 36.3 - 47.1 % [employer] Hemoglobin.gastrointe stinal spec 1 Ql (Stl) 10.3 g/dL Low 11.9 - 15.1 g/dL [employer] Immature granulocytes/100 WBC (Bld) 0 % 0 [employer] Interpretation and review of laboratory results Abnormal [employer] Lymphocytes/100 WBC (Bld) 26 % 24 - 43 % [employer] MCH (RBC) [Entitic mass] 31.3 pg 25.2 - 33.5 pg [employer] MCHC (RBC) [Mass/Vol] 34.2 g/dL 28.4 - 34.8 g/dL [employer] MCV (RBC) [Entitic vol] 91.5 fL 82.6 - 102.9 fL [employer] Monocytes/100 WBC (Bld) 8 % 3 - 12 % [employer] NRBC Automated 0.0 0.0 per 100 WBC [employer] Platelet distribution width (Bld) [Ratio] 13.6 % 11.8 - 14.4 % [employer] Platelet Estimate NOT REPORTED [employer] Platelet mean volume (Bld) [Entitic vol] 9.8 fL 8.1 - 13.5 fL [facility] Platelets (Bld) [#/Vol] 265 10*3/uL [facility] RBC (Bld) [#/Vol] 3.29 10*6/uL Low 3.95 - 5.1 1 m/uL [facility] RBC (Bld) [#/Vol] NOT REPORTED [facility] Segmented neutrophils/100 WBC (Bld) 65 % 36 - 65 % [facility] Segs [facility]) [#/Vol] 6.7 10*3/uL [facility] WBC (Bld) [#/Vol] NOT REPORTED [facility] CBC with Diffon 10-05-2021 Abs. Basophil <0.03 Normal 0.00-0.20 [facility] Comment on above: Performed By: #### C DP, FT4, TSH, SSARO, SSBLA #### [facility] [address] [place] [address] Hospital Educator: Mrak Hernadez MD Abs.Imm.Granulocyte 0.03 k/uL Normal 0.00-0.30 [facility] Comment on above: Performed By: #### C DP, FT4, TSH, SSARO, SSBLA #### [facility] [address] [place] [address] Hospital Educator: Mark Hernadez MD Abs.Neutrophil (Seg) 4.35 k/uL Normal 1.50-8.10 [facility] [place] Comment on above: Performed By: #### C DP, FT4, TSH, SSARO, SSBLA #### [facility] [address] [place] [address] Hospital Educator: Mark Hernadez MD Basophils/100 WBC (Bld) 0 % Normal 0-2 [facility] Comment on above: Performed By: #### C DP, FT4, TSH, SSARO, SSBLA #### [facility] [address] [place] [address] Hospital Educator: Mark Hernadez MD Eosinophils (Bld) [#/Vol] 0.05 10*3/uL Normal 0.00-0.44 [facility] Comment on above: Performed By: #### C DP, FT4, TSH, SSARO, SSBLA #### [place] [address] Hospital Educator: Mark Hernadez MD Eosinophils/100 WBC (Bld) 1 % Normal 1-4 [facility] Comment on above: Performed By: #### C DP, FT4, TSH, SSARO, SSBLA #### [place] [address] Hospital Educator: Mark Hernadez MD Erythrocyte distribution width (RBC) [Ratio] 13.6 % Normal 11.8-14.4 [facility] Comment on above: Performed By: #### C DP, FT4, TSH, SSARO, SSBLA #### [place] [address] Hospital Educator: Mark Hernadez MD Hematocrit (Bld) [Volume fraction] 30.1 % Low 36.3-47.1 [facility] Comment on above: Performed By: #### C DP, FT4, TSH, SSARO, SSBLA #### [place] [address] Hospital Educator: Mark Hernadez MD Hemoglobin (Bld) [Mass/Vol] 10.3 g/dL Low 11.9-15.1 [facility] Comment on above: Performed By: #### C DP, FT4, TSH, SSARO, SSBLA #### [place] [address] Hospital Educator: Mark Hernadez MD Immature granulocytes/100 WBC (Bld) 0 % Normal 0 [facility] Comment on above: Performed By: #### C DP, FT4, TSH, SSARO, SSBLA #### [address] [address] Hospital Educator: Mark Hernadez MD Lymphocytes (Bld) [#/Vol] 1.73 10*3/uL Normal 1.10-3.70 [facility] Comment on above: Performed By: #### C DP, FT4, TSH, SSARO, SSBLA #### [address] [address] Hospital Educator: Mark Hernadez MD Lymphocytes/100 WBC (Bld) 26 % Normal 24-43 [facility] Comment on above: Performed By: #### C DP, FT4, TSH, SSARO, SSBLA #### [address] [address] Hospital Educator: Mark Hernadez MD MCH (RBC) [Entitic mass] 31.3 pg Normal 25.2-33.5 [facility] Comment on above: Performed By: #### C DP, FT4, TSH, SSARO, SSBLA #### [place] [address] Hospital Educator: Mark Hernadez MD MCHC (RBC) [Mass/Vol] 34.2 g/dL Normal 28.4-34.8 [facility] Comment on above: Performed By: #### C DP, FT4, TSH, SSARO, SSBLA #### [place] [address] Hospital Educator: Mark Hernadez MD MCV (RBC) [Entitic vol] 91.5 fL Normal 82.6-102.9 [facility] Comment on above: Performed By: #### C DP, FT4, TSH, SSARO, SSBLA #### [address] [address] Hospital Educator: Mark Hernadez MD Monocytes (Bld) [#/Vol] 0.52 10*3/uL Normal 0.10-1.20 [facility] Comment on above: Performed By: #### C DP, FT4, TSH, SSARO, SSBLA #### [address] [address] Hospital Educator: Mark Hernadez MD Monocytes/100 WBC (Bld) 8 % Normal 3-12 [facility] Comment on above: Performed By: #### C DP, FT4, TSH, SSARO, SSBLA #### [address] [address] Hospital Educator: Mark Hernadez MD Neutrophil (Seg) 65 % Normal 36-65 [facility] Comment on above: Performed By: #### C DP, FT4, TSH, SSARO, SSBLA #### [address] [address] Hospital Educator: Mark Hernadez MD NRBC Automated 0.0 per 100 WBC Normal 0.0 [facility] Comment on above: Performed By: #### C DP, FT4, TSH, SSARO, SSBLA #### [address] [address] Hospital Educator: Mark Hernadez MD Platelet mean volume (Bld) [Entitic vol] 9.8 fL Normal 8.1-13.5 [facility] Comment on above: Performed By: #### C DP, FT4, TSH, SSARO, SSBLA #### [address] [address] Hospital Educator: Mark Hernadez MD Platelets (Bld) [#/Vol] 265 10*3/uL Normal 138-453 [facility] Comment on above: Performed By: #### C DP, FT4, TSH, SSARO, SSBLA #### [address] [address] Hospital Educator: Mark Hernadez MD RBC (Bld) [#/Vol] 3.29 10*6/uL Low 3.95-5.11 [facility] Comment on above: Performed By: #### C DP, FT4, TSH, SSARO, SSBLA #### [address] [address] Hospital Educator: Mark Hernadez MD WBC (Bld) [#/Vol] 6.7 10*3/uL Normal 3.5-11.3 [facility] Comment on above: Performed By: #### C DP, FT4, TSH, SSARO, SSBLA #### [address] [address] Hospital Educator: Mark Hernadez MD Auto Diff Performed NOT REPORTED Normal [facility] Comment on above: Performed By: #### C DP, FT4, TSH, SSARO, SSBLA #### [address] [address] Hospital Educator: Mark Hernadez MD Platelet Comment NOT REPORTED Normal [facility] Comment on above: Performed By: #### C DP, FT4, TSH, SSARO, SSBLA #### [address] [address] Hospital Educator: Mark Hernadez MD RBC morphology finding Nom (Bld) NOT REPORTED Normal [facility] Comment on above: Performed By: #### C DP, FT4, TSH, SSARO, SSBLA #### [address] [address] Hospital Educator: Mark Hernadez MD WBC Morphology NOT REPORTED Normal [facility] Comment on above: Performed By: #### C DP, FT4, TSH, SSARO, SSBLA #### [address] [address] Hospital Educator: Mark Hernadez MD No Panel Informationon 10-05 [place] [address], FREEon 10-05-2021 Thyroxine, Free 1.04 ng/dL 0.93 - 1.70 ng/dL [facility] TSH without Reflexon TSH Qn 1.94 m[IU]/L [facility] TYPE AND SCREENon 10-05-2021 ABO/Rh Positive [facility] Arm Band Number [id number] [facility] lth Expiration Date 10/08/2021,2359 [facility] Thyroid Stim. Horm.on 2020 TSH Qn 1.94 m[IU]/L Normal 0.30-5.00 [facility] Comment on above: Performed By: #### C DP, FT4, TSH, SSARO, SSBLA #### [employer] [address] [place] [id number] Hospital Educator: Mark Hernadez MD Thyroxine, Freeon 10-05-2021 Thyroxine, Free 1.04 ng/dL Normal 0.93-1.70 [facility] Comment on above: Performed By: #### C DP, FT4, TSH, SSARO, SSBLA #### [employer] [address] [place] [id number] Hospital Educator: Mark Hernadez MD Type + Screenon 10-05-2021 Type + Screen Sample Expiration 10/08/2021,235 Arm Band Number [id number] ABO/Rh(D) O POSITIVE Antibody Screen NEGATIVE Normal [facility] Comment on above: Performed By: #### T YS #### [employer] [address] [place] [id number] Hospital Educator: Mark Hernadez MD US PREG BIOPHY W [...] by: FERN CALZADA Date: 2021-10-05 13:16 Normal [facility] US PREG GROWTHon 10-05-2021 US PREG [...] (3rd percentile). 3. Slightly thickened appearance of Roscoe's jelly surrounding the umbilical cord; nonspecific but can be associated with gestational diabetes. Report placed in the stat call folder. Electronically authenticated by: FERN CALZADA Date: 2021-10-05 13:22 Normal [facility] CBC AUTO DIFFon 09-05-2021 BASO # 0.0 103/ul Normal 0.0-0.1 [facility] Comment on above: Performed By: #### V RITA #### [facility] [address] [place], [place] [address] Nancy Piper Basophils/100 WBC (Bld) 0.3 % Normal 0.2-2.0 [facility] Comment on above: Performed By: #### V RITA #### [facility] [address] [place], [place] [address] Nancy Piper EO # 0.1 103/ul Normal 0.0-0.7 [facility] Comment on above: Performed By: #### Nora SALINAS #### [facility] [address] [place], [place] [id number] Nancy Veronique Eosinophils/100 WBC (Bld) 0.8 % Critically low 0.9-7.0 [facility] Comment on above: Performed By: #### Nora SALINAS #### [facility] [address] [place] [address] Nancy Veronique Erythrocyte distribution width (RBC) [Ratio] 13.5 % Normal 11.0-15.0 [facility] Comment on above: Performed By: #### Nora SALINAS #### [facility] [address] [place] [address] Nancy Veronique Hematocrit (Bld) [Volume fraction] 33.0 % Critically low 36.0-48.0 [facility] Comment on above: Performed By: #### Nora SALINAS #### [facility] [address] [place] [address] Nancy Veronique Hemoglobin (Bld) [Mass/Vol] 10.8 g/dL Critically low 12.0-16.0 [facility] Comment on above: Performed By: #### Nora SALINAS #### [facility] [address] [place] [address] Nancy Veronique IG # 0.05 10e3/ul Critically high 0.00-0.03 [facility] Comment on above: Performed By: #### Nora SALINAS #### [facility] [address] [place] [address] Nancy Veronique IG % 0.6 % Critically high 0.0-0.5 [facility] Comment on above: Performed By: #### Nora SALINAS #### [facility] [address] [place] [address] Nancy Veronique LYMPH # 1.4 103/ul Normal 1.2-3.8 [facility] Comment on above: Performed By: #### Nora SALINAS #### [facility] [address] [place], [place] [id number] Nancy Veronique Lymphocytes/100 WBC (Bld) 17.1 % Critically low 20.5-60.0 [facility] Comment on above: Performed By: #### Nora SALINAS #### [facility] [address] [place], [place] [id number] Nancypatricia Kellyen MANUAL DIFF REQ NO Normal [facility] Comment on above: Performed By: #### Nora SALINAS #### [facility] [address] [place] [id number] Nancypatricia Piper MCH (RBC) [Entitic mass] 31.4 pg Normal 26.7-34.0 [facility] Comment on above: Performed By: #### Nora SALINAS #### [facility] [address] [place], [place] [id number] Nancypatricia Piper MCHC (RBC) [Mass/Vol] 32.7 g/dL Normal 29.9-35.2 [facility] Comment on above: Performed By: #### Nora SALINAS #### [facility] [address] [place] [address] Nancy Veronique MCV (RBC) [Entitic vol] 95.9 fL Normal 81.0-99.0 [facility] Comment on above: Performed By: #### Nora SALINAS #### [facility] [address] [place], [place] [id number] Nancy Veronique MONO # 0.5 103/ul Normal 0.3-0.8 [facility] Comment on above: Performed By: #### Nora SALINAS #### [facility] [address] [place], [place] [id number] Nancy Veronique Monocytes/100 WBC (Bld) 6.3 % Normal 1.7-12.0 [facility] Comment on above: Performed By: #### Nora SALINAS #### [facility] [address] [place], [place] [id number] Nancy Veronique NEUT # 5.9 103/ul Normal 1.4-6.5 [facility] Comment on above: Performed By: #### Nora SALINAS #### [facility] [address] [place], [place] [id number] Nancy Veronique Neutrophils/100 WBC (Bld) 74.9 % Normal 43.0-75.0 [facility] Comment on above: Performed By: #### V RITA #### [facility] [address] [place], [place] [address] Nancy Piper Platelet mean volume (Bld) [Entitic vol] 9.9 fL Normal 9.5-13.5 [facility] Comment on above: Performed By: #### V RITA #### [facility] [address] [place], [place] [address] Nancy Kellyen PLT 243 103/ul Normal 150-450 [facility] Comment on above: Performed By: #### V RITA #### [facility] [address] [place], [place] [address] Nancy Veronique RBC 3.44 106/ul Critically low 4.20-5.40 [facility] Comment on above: Performed By: #### V RITA #### [facility] [address] [place], [place] [address] Nancy Kellyen WBC 7.9 103/ul Normal 4.0-11.0 [facility] Comment on above: Performed By: #### V RITA #### [facility] [address], [place] [address] Nancy Piper GLUCOSE - 1HRon 09-05-2021 Glucose [Mass/Vol] 98 mg/dL Normal 74-106 [facility] Comment on above: Performed By: #### G LU1HR #### [facility] [address], [place] [address] Dr. Leonardo Khalil US PREG ANATOMY SINGLEon [...] by ultrasound, 88th percentile by expected) FL/AC: 0.525608 FL/BPD: 0.420495 HC/AC: 1.406328 GESTATIONAL AGE: Age by EDC: 20 weeks, 6 days ÁLVARO by EDC: 11/28/2021 Age by current US: 21 weeks, 3 days ÁLVARO by current US: 11/24/2021 IMPRESSION: 1. Single live intrauterine with growth detailed above. Normal [facility] Pap IG, rfx Aptima HPV, rfx 16/18,45 + Con 05-22-2021 . . Normal [facility] Comment on above: Result Comment: Perf ormed at: WB Performed By: #### V ARCEL #### [facility] [address] [place] [address] Nancy Piper Chlamydia, Nuc. Acid Amp Negative Normal Negative [facility] Comment on above: Result Comment: Perf ormed at: =G Performed By: #### V ARCEL #### [facility] [address] [place] [phone] Nanyc Piper DIAGNOSIS: Comment Normal [facility] Comment on above: Result Comment: NEGA TIVE FOR INTRAEPITHELIAL LESION OR MALIGNANCY. Performed at: WB Performed By: #### V ARCEL #### [facility] [address], [place] [address] Nancy Veronique Gonococcus, Nuc. Acid Amp Negative Normal Negative [facility] Comment on above: Result Comment: Perf ormed at: =G Performed By: #### V ARCEL #### [facility] [address] [place] [phone] Nancypatricia Piper HPV Aptima Negative Normal Negative [facility] Comment on above: Result Comment: This nucleic acid amplification test detects fourteen high-risk HPV types (16,18,31,33,35,39,45,51,52,56,58,59,66,68) without differentiation. Performed at: =G Performed By: #### V MORISEL #### [facility] [address] [place] [address] Nancy Piper Methodology: Comment Normal [facility] Comment on above: Result Comment: This liquid based ThinPrep(R) pap test was screened with the use of an image guided system. Performed at: WB Performed By: #### V MORISEL #### [facility] [address] [place] [address] Nancy Piper Note: Comment Normal [facility] Comment on above: Result Comment: The [...] WB Performed By: #### V MORISEL #### [facility] [address] [place] [address] Nancy Piper Performed by: Comment Normal [facility] Comment on above: Result Comment: Irving Alarcon, [place]vered[place] (ASCP) Performed at: WB Performed By: #### V RITA #### [facility] [address] [place], [place] [phone] Nancy Piper Specimen adequacy: Comment Normal [facility] Comment on above: Result Comment: Sati sfactory for evaluation. No endocervical component is identified. Performed at: WB Performed By: #### V MORISEL #### [facility] [address] [place], [place] [id number] Nancy Piper CULTURE URINEon 05-18-2021 CULTURE URINE Culture Observations : LIGHT GROWTH OF MIXED GENITAL KRISTEL. NO POTENTIAL PATHOGENS SEEN. Normal [facility] Comment on above: Performed By: #### U RCX #### [facility] [address] [place] [address] Nancy Piper UA RANDOM W/MICROSCOPICon BACTERIA NONE SEEN Normal NONE SEEN [facility] Comment on above: Performed By: #### R PRQ #### [facility] [address] [place] [address] Nancy Veronique Bilirubin Ql (U) Negative Normal NEGATIVE [facility] Comment on above: Performed By: #### R PRQ #### [facility] [address] [place] [address] Nancy Veronique CAST NONE SEEN Normal NONE SEEN [facility] Comment on above: Performed By: #### R PRQ #### [facility] [address] [place] [address] Nancy Veronique Clarity (U) CLEAR Normal CLEAR [facility] Comment on above: Performed By: #### R PRQ #### [facility] [address] [place] [address] Nancy Veronique Color (U) LT. YELLOW Normal YELLOW [facility] Comment on above: Performed By: #### R PRQ #### [facility] [address] [place] [address] Nancy Veronique Crystals LM Nom (Urine sed) NONE SEEN Normal NONE SEEN [facility] Comment on above: Performed By: #### R PRQ #### [facility] [address] [place] [address] Nancy Veronique Epithelial cells LM Ql (Urine sed) FEW Abnormal NONE SEEN /RARE [facility] Comment on above: Performed By: #### R PRQ #### [facility] [address] [place] [address] Nancy Veronique Glucose Ql (U) Negative Normal NEGATIVE [facility] Comment on above: Performed By: #### R PRQ #### [facility] [address] [place] [address] Nancy Veronique Hemoglobin Ql (U) Negative Normal NEGATIVE [facility] Comment on above: Performed By: #### R PRQ #### [facility] [address] [place] [address] Nancy Veronique Ketones Ql (U) Negative Normal NEGATIVE [facility] Comment on above: Performed By: #### R PRQ #### [facility] [address] [place] [address] Nancy Veronique LEUKOCYTES Negative Normal NEGATIVE [facility] Comment on above: Performed By: #### R PRQ #### [facility] [address] [place] [address] Nancy Veronique MUCOUS TRACE Abnormal NONE SEEN [facility] Comment on above: Performed By: #### R PRQ #### [facility] [address] [place], [place] [id number] Nancy Veronique Nitrite Ql (U) Negative Normal NEGATIVE [facility] Comment on above: Performed By: #### R PRQ #### [facility] [address] [place] [address] Nancypatricia Piper pH (U) 5.5 [pH] Normal 5-9 [facility] Comment on above: Performed By: #### R PRQ #### [facility] [address] [place] [address] Nancypatricia Piper RBC NONE SEEN Abnormal 0-2 [facility] Comment on above: Performed By: #### R PRQ #### [facility] [address] [place] [address] Nancy Piper SPEC GRAVITY >=1.030 Abnormal 1.005-<=1.[address] [facility] Comment on above: Performed By: #### R PRQ #### [facility] [address] [place] [address] Nancy Piper UA PROTEIN Negative Normal NEGATIVE/ TRACE [facility] Comment on above: Performed By: #### R PRQ #### [facility] [address] [place] [address] Nancy Piper Urobilinogen Qn (U) 0.2 {Travis'U}/dL Normal 0.2 - 1. 0 [facility] Comment on above: Performed By: #### R PRQ #### [facility] [address] [place] [address] Nancypatricia Piper WBC NONE SEEN Normal NONE SEEN [facility] Comment on above: Performed By: #### R PRQ #### [facility] [address] [place] [address] Nancy Piper HEMOGLOBINOPATHY FRACTIONATI ON CASCADEon 08-04-2021 HGB A 97.8 % Normal 96.4-98.8 [facility] Comment on above: Performed By: #### H GBCAS #### [facility] [address] [place] [address] Nancy Piper HGB A2 2.2 % Normal 1.8-3.2 [facility] Comment on above: Performed By: #### H GBCAS #### [facility] [address] [place] [address] Nancy Piper HGB F 0.0 % Normal 0.0-2.0 [facility] Comment on above: Performed By: #### H GBCAS #### [facility] [address] [place] [address] Nancy Piper HGB S 0.0 % Normal 0.0 [facility] Comment on above: Performed By: #### H GBCAS #### [facility] [address] [place] [address] Nancy Piper Interpretation: Comment Normal [facility] Comment on above: Result Comment: Norm al hemoglobin present; no hemoglobin variant or thalassemia observed. Performed By: #### H GBCAS #### [facility] [address] [place] [address] Nancy Piper HEP B SURFACE ANTIGEN SCREEN on 05-17-2021 HBsAg Screen Negative Normal Negative [facility] Comment on above: Performed By: #### H BSANS #### [facility] [address] [place] [address] Nancy Piper HEPATITIS C ANTIBODYon 05-17 Hep C Virus Ab <0.1 Normal 0.0-0.9 [facility] Comment on above: Result Comment: Nega tive: < 0.8 Indeterminate: 0.8 - 0.9 Positive: > 0.9 . The CDC recommends that a positive HCV antibody result be followed up with a HCV Nucleic Acid Amplification test (013050). Performed By: #### H CV #### [facility] [address] [place] [address] Nancy Piper HIV 1 AND 2 WITH REFLEXon HIV Screen 4th Generation wRfx Non-Reactive Normal Non Reactive [facility] Comment on above: Performed By: #### Nora SALINAS #### [facility] [address] [place] [address] Nancy Piper RPR QUANTon 05-17-2021 Rapid Plasma Reagin, Quant Non-Reactive Normal NonRea<1:1 [facility] Comment on above: Performed By: #### R PRQ #### [facility] [address] [place] [address] Nancy Piper RUBELLA AB IGGon 05-17-2021 Rubella Antibodies, IgG 4.07 index Normal Immune >0.99 [facility] Comment on above: Result Comment: Non- immune <0.90 Equivocal 0.90 - 0.99 Immune >0.99 Performed By: #### R UBIGG #### [facility] [address] [place] [address] Nancy Piper VARICELLA IGG ABon Varicella Zoster IgG 1067 index Normal Immune >165 [facility] Comment on above: Result Comment: Nega tive <135 Equivocal 135 - 165 Positive >165 A positive result generally indicates exposure to the pathogen or administration of specific immunoglobulins, but it is not indication of active infection or stage of disease. Performed By: #### Nora SALINAS #### [facility] [address] [place] [address] Nancy Piper CBC AUTO DIFFon 05-16-2021 BASO # 0.0 103/ul Normal 0.0-0.1 [facility] Comment on above: Performed By: #### C BC #### [facility] [address] [place], [place] [id number] Nancy Veronique Basophils/100 WBC (Bld) 0.3 % Normal 0.2-2.0 [facility] Comment on above: Performed By: #### C BC #### [facility] [address] [place] [address] Nancy Veronique EO # 0.1 103/ul Normal 0.0-0.7 [facility] Comment on above: Performed By: #### C BC #### [facility] [address] [place] [address] Nancy Veronique Eosinophils/100 WBC (Bld) 0.8 % Critically low 0.9-7.0 [facility] Comment on above: Performed By: #### C BC #### [facility] [address] [place] [address] Nancy Veronique Erythrocyte distribution width (RBC) [Ratio] 12.6 % Normal 11.0-15.0 [facility] Comment on above: Performed By: #### C BC #### [facility] [address] [place] [address] Nancy Veronique Hematocrit (Bld) [Volume fraction] 36.7 % Normal 36.0-48.0 [facility] Comment on above: Performed By: #### C BC #### [facility] [address] [place] [address] Nancy Veronique Hemoglobin (Bld) [Mass/Vol] 12.5 g/dL Normal 12.0-16.0 [facility] Comment on above: Performed By: #### C BC #### [facility] [address] [place] [address] Nancy Veronique IG # 0.03 10e3/ul Normal 0.00-0.03 [facility] Comment on above: Performed By: #### C BC #### [facility] [address] [place] [address] Nancy Veronique IG % 0.3 % Normal 0.0-0.5 [facility] Comment on above: Performed By: #### C BC #### [facility] [address] [place] [address] Nancy Veronique LYMPH # 1.7 103/ul Normal 1.2-3.8 [facility] Comment on above: Performed By: #### C BC #### [facility] [address] [place], [place] [id number] Nancy Veronique Lymphocytes/100 WBC (Bld) 16.9 % Critically low 20.5-60.0 [facility] Comment on above: Performed By: #### C BC #### [facility] [address] [place] [address] Nancy Veronique MANUAL DIFF REQ NO Normal [facility] Comment on above: Performed By: #### C BC #### [facility] [address] [place] [address] Nancy Piper MCH (RBC) [Entitic mass] 30.7 pg Normal 26.7-34.0 [facility] Comment on above: Performed By: #### C BC #### [facility] [address] [place] [address] Nancy Piper MCHC (RBC) [Mass/Vol] 34.1 g/dL Normal 29.9-35.2 [facility] Comment on above: Performed By: #### C BC #### [facility] [address] [place] [address] Nancy Piper MCV (RBC) [Entitic vol] 90.2 fL Normal 81.0-99.0 [facility] Comment on above: Performed By: #### C BC #### [facility] [address] [place] [address] Nancy Piper MONO # 0.7 103/ul Normal 0.3-0.8 [facility] Comment on above: Performed By: #### C BC #### [facility] [address] [place] [address] Nancy Piper Monocytes/100 WBC (Bld) 6.5 % Normal 1.7-12.0 [facility] Comment on above: Performed By: #### C BC #### [facility] [address] [place] [address] Nancy Piper NEUT # 7.6 103/ul Critically high 1.4-6.[address] [facility] Comment on above: Performed By: #### C BC #### [facility] [address] [place], [place] [id number] Nancy Piper Neutrophils/100 WBC (Bld) 75.2 % Critically high 43.0-75.0 [facility] Comment on above: Performed By: #### C BC #### [facility] [address] [place] [address] Nancy Piper Platelet mean volume (Bld) [Entitic vol] 10.0 fL Normal 9.5-13.5 [facility] Comment on above: Performed By: #### C BC #### [facility] [address] [id number] Nancypatricia Kellyen PLT 275 103/ul Normal 150-450 [facility] Comment on above: Performed By: #### C BC #### [facility] [address] [id number] Nancy Veronique RBC 4.07 106/ul Critically low 4.20-5.40 [facility] Comment on above: Performed By: #### C BC #### [facility] [address] [id number] Nancy Veronique WBC 10.2 103/ul Normal 4.0-11.0 [facility] Comment on above: Performed By: #### C BC #### [facility] [address] [place], [place] [id number] Nancypatricia Piper GLYCOHEMOGLOBIN A1Con 2020 ADA RECOMMENDATION ADA THERAPEUTIC TARGET 6.0 - 7.0 ACTION SUGGESTED > 7.0 Normal [facility] Comment on above: Performed By: #### A 1C #### [facility] [address] [place], [place] [id number] Nancy Veronique Glucose [Mass/Vol] 91 mg/dL Normal [facility] Comment on above: Performed By: #### A 1C #### [facility] [address] [place], [place] [id number] Nancy Veronique HbA1c (Bld) [Mass fraction] 4.8 % Normal <=6.0 [facility] Comment on above: Performed By: #### A 1C #### [facility] [address] [place], [place] [id number] Nancy Veronique PREG QUANT HCGon 05-16-2021 HCG QUANT 68774 mIU/mL Normal [facility] Comment on above: Result Comment: Dilu mara Performed By: #### Nora SALINAS #### [facility] [address] [place], [place] [id number] Nancy Veronique HCG RANGE SEE BELOW Normal [facility] Comment on above: Result Comment: 5-50 0-1 WEEK 40-300 1-2 WEEKS 100-1,000 2-3 WEEKS 500-6,000 3-4 WEEKS 5,000-200,000 1-2 MONTHS 10,000-100,000 2-3 MONTHS 3,000-50,000 2ND TRIMESTER 1,000-50,000 3RD TRIMESTER Performed By: #### V RITA #### [facility] [address] [id number] Nancy Piper TYPE AND SCREENon 05-16-2021 TYPE AND SCREEN Negative Normal [facility] Comment on above: Performed By: #### R PRQ #### [facility] [address] [place], [place] [address] Nancy Piper US PREG TVon 04-18-2021 US [...] CHELITA CARDENAS Date: 2021-04-18 12:02 Normal [facility] Vital Signs Date Time Vital Sign Value Performing Clinician Nathani litana 10-06-2021 09:06-0500 Body temperature 98.2 [degF] Elvia Donis DO Work Phone: [employer] 10-06-2021 09:06-0500 Diastolic blood pressure 74 mm[Hg] Elvia Donis DO Work Phone: [employer] 10-06-2021 09:06-0500 Heart rate 84 /min Elvia Donis DO Work Phone: [employer] 10-06-2021 09:06-0500 Respiratory rate 17 /min Elvia Donis DO Work Phone: [employer] 10-06-2021 09:06-0500 SaO2% (BldA) [Mass fraction] 99 % Elvia Donis DO Work Phone: [employer] 10-06-2021 09:06-0500 Systolic blood pressure 121 mm[Hg] Elvia Donis DO Work Phone: [employer] 10-05-2021 18:40-0500 Body height 157.5 cm Elvia Donis DO Work Phone: [employer] 10-05-2021 18:40-0500 Body mass index (BMI) [Ratio] 30.36 kg/m2 Elvia Donis DO Work Phone: [employer] 10-05-2021 18:40-0500 Body weight 75.3 kg Elvia Donis DO Work Phone: [employer] Encounters Encounter Date Encounter Type Care Provider Facility Start: 07-15-2024 End: 07-15-2024 Bamboo flowsheet Radha Sneha DO Work Phone: [facility] Start: 07-15-2024 End: 07-15-2024 Bamboo flowsheet Radha Sneha DO Work Phone: [facility] Start: 07-15-2024 End: 07-15-2024 ambulatory RADHA SNEHA Not Available Start: 06-17-2024 End: 06-17-2024 ambulatory CHAO ALVARENGAEY Not Available Start: 05-21-2024 End: 05-21-2024 ambulatory RADHA SNEHA Not Available Start: 04-23-2024 End: 04-23-2024 ambulatory RADHA SNEHA Not Available Start: 04-22-2024 ambulatory CLINICAL QUALITY ANALYST Yola Metz ity:FT [facility] Start: 03-19-2024 End: 03-19-2024 ambulatory RADHA SNEHA Not Available Start: 11-12-2023 End: 11-12-2023 ambulatory RADHA SNEHA Not Available Start: 05-07-2023 ambulatory CLINICAL QUALITY ANALYST Yola Ivey y:FT [facility] Start: 04-24-2022 End: 04-24-2022 Off-Site Ana Gudimella [facility] Start: 03-22-2022 End: 03-22-2022 Off-Site Ana Gudimella [facility] Start: 11-09-[address] DOCTOR BURGOS Facility :[facility] Start: 11-06-2021 End: 11-06-[address] RADHA HOOVER Facility:[facility] Start: 11-03-2021 End: 11-03-[address] RADHA HOOVER Facility:[facility] Start: 11-02-2021 End: 11-02-[address] CHELITA CARDENAS Facility:[facility] Start: 10-30-2021 End: 10-30-[address] PEG LACEY Facility:[facility] Start: 10-26-2021 End: 10-26-[address] CHELITA CARDENAS Facility:[facility] Start: 10-24-2021 End: 10-25-2021 ambulatory AUGIE PEDROZA [facility] Start: 10-19-2021 End: 10-19-[address] PEG LACEY Facility:[facility] Start: 10-12-2021 End: 10-12-[address] PEG LACEY Facility:[facility] Start: 10-06-2021 End: 10-06-[address] RADHA HOOVER Facility:[facility] Start: 10-05-2021 End: 10-06-2021 [facility] Start: 10-05-2021 End: 10-06-2021 Subsequent hospital [...] CARDENAS Facility:[facility] Start: 02-08-2021 End: 02-09-2021 ambulatory NONE LISTED REQUEST Facility:[facility] Procedures Date Procedure Procedure [...] DTaP/Tdap/Td vaccine (2 - Td or Tdap) [facility] Start: 07-15-2024 End: 07-15-2024 Patient encounter procedure 07/15/2024 10:50 AM EDT Routine [facility] [address] [place] [address] Radha Hoover DO [address] [place] [address] Arrived [facility] Comment on above: Arrived Start: 06-14-2024 Influenza vaccination Influenza Vacc ine (#1) [facility] Start: 08-10-2021 COVID-19 Vaccine (3 - Booster for Pfizer series) COVID-19 Vaccine (3 - Booster for Pfizer series) [facility] Start: 06-14-2021 Influenza vaccination Flu vaccine (# 1) [facility] Start: 2019 Screening for malign ant neoplasm of cervix [facility] Start: 2010 Screening for malign ant neoplasm of cervix Pap smear [facility] Start: 2004 HIV screening HIV screen [facility] Start: 1990 Varicella vaccine (1 of 2 - 2-dose childhood series) Varicella vaccine (1 of 2 - 2-dose childhood series) [facility] Start: 1989 Hepatitis C screening Hepatitis C sc reen [facility] End: 10-06-2021 MISCELLANEOUS TESTING MISCELLANEOUS TESTING Lab STAT Once for 1 Occurrences starting 10/06/2021 until 10/06/2021 [employer] Phone: Comment on above: Once for 1 Occurrenc es starting 10/06/2021 until 10/06/2021 Nonrebreather mask oxygen Nonrebreather mask oxygen Respiratory Care Routine As directed - RT (PRN) until discontinued starting 10/05/2021 [employer] Phone: Comment on above: As directed - RT (MT N) until discontinued starting 10/05/2021 End: 10-05-2021 SJOGRENS SYNDROME-A EXTRACTABLE NUCLEAR ANTIBODY [employer] Phone: Comment on above: One Time for 1 Occur rences starting 10/05/2021 until 10/05/2021 End: 10-05-2021 SJOGRENS SYNDROME-B EXTRACTABLE NUCLEAR ANTIBODY [employer] Phone: Comment on above: One Time for 1 Occur rences starting 10/05/2021 until 10/05/2021 Immunizations Immunization Date Immunization Notes Care Provider Giovany hargrove 10-19-2021 influenza virus vaccine, unspecified formulation Ana Gudimella [facility] 10-19-2021 tetanus toxoid, redu garry diphtheria toxoid, and acellular pertussis vaccine, adsorbed Ana Gudimella [facility] 02-08-2021 SARS-CoV-2 (COVID-19 ) mRNA BNT-162b2 vax Ana Gudimella [facility] 01-18-2021 SARS-CoV-2 (COVID-19 ) mRNA BNT-162b2 vax Ana Gudimella [facility] 08-26-2020 influenza, unspecifi ed formulation Ana Gudimella [facility] Payers Date Payer Category Payer Unknown [employer] [id number] 2023-Present [address] [place] [address] [id number] 2019 Unknown [id number] [id number] 1989 Unknown [id number] 2.16.840.1.473322.3.579.2.175 1989 Unknown [id number] 2.16.840.1.449413.3.579.2.175 1989 Unknown [id number] 2.16.840.1.642077.3.579.2.593 1989 Unknown [id number] 2.16.840.1.756551.3.579.2.593 1989 Unknown [id number] 2.16.840.1.060177.3.579.2.593 1989 Unknown [id number] 2.16.840.1.088728.3.579.2.593 1989 Unknown [id number] 2.16.840.1.436030.3.579.2.593 1989 Unknown [id number] 2.16.840.1.081722.3.579.2.593 1989 Unknown [id number] 2.16.840.1.797651.3.579.2.593 1989 Unknown [id number] 2.16.840.1.368964.3.579.2.593 1989 Unknown [id number] 2.16.840.1.350424.3.579.2.593 1989 Unknown [id number] 2.16.840.1.102908.3.579.2.593 1989 Unknown [id number] 2.16.840.1.193305.3.579.2.593 1989 Unknown [id number] 2.16.840.1.367594.3.579.2.593 1989 Unknown [id number] 2.16.840.1.153177.3.579.2.593 1989 Unknown [id number] 2.16.840.1.720306.3.579.2.593 1989 Unknown [id number] 2.16840.1.166465.3.579.2.593 1989 Unknown [id number] 2.16.840.1.031441.3.579.2.727 1989 Unknown [id number] 2.16.840.1.420462.3.579.2.727 1989 Unknown [id number] 2.16.840.1.685534.3.579.2.1259 1989 Unknown [id number] 2.16.840.1.495018.3.579.2.1259 1989 Unknown [id number] 2.16.840.1.858350.3.579.2.1259 1989 Unknown [id number] 2.16.840.1.020898.3.579.2.1259 1989 Unknown [id number] 2.16.840.1.036121.3.579.2.1259 1989 Unknown [id number] 2.16.840.1.545751.3.579.2.1259 1959 Self-pay Unknown [id number] 2.16.840.1.352042.3.579.2.593 Social History Date Type Detail Facility Start: 10-05-2021 End: 03-19-2024 Tobacco smoking status NHIS Never smoked tobacco [employer] Work Phone: Start: 10-05-2021 End: 03-19-2024 Tobacco use and exposure Smokeless tobacco non-user [employer] Work Phone: Start: 10-05-2021 End: 06-17-2024 Alcohol intake Ex-drinker (finding) [facility] Work Phone: Start: 03-07-2021 [employer] [facility] Work Phone: Start: 1990 [facility] Tobacco smoking status Never [facility] Start: 03-19-2024 Sex Assigned At Female F [facility] Start: 03-19-2024 History of Social function [facility] Functional Status Date Assessment Result Facility 04-24-2022 Functional Status Telehealth Patient [facility] Hospital Discharge instructions 03-22-2022 Note Date & Type Note Facility 03-22-2022 Hospital Discharg e instructions Follow Up Care 03/22/2022 14:50:25 With:Maria Antonia VIVAS, LINNETTE Perez, MED Address: [address] [place] [phone] Business (1) When:Within 3 Month(s) [facility] Hospital Discharge instructions 03-14-2022 Note Date & Type Note Facility 03-14-2022 Hospital Discharg e instructions Follow Up Care 03/14/2022 16:26:08 With:Maria Antonia VIVAS, LINNETTE Perez, MED Address: [address] [place] [phone]- [phone] Business (1) When:Within 1 Month(s) [facility] [place] [facility] Discharge instructions 10-06-2021 Instructions Note Date & Type Note Facility 10-06-2021 Hospital Discharg e instructions MarckDaria lynch - 10/06/2021 Images from the original note [...] Where can you learn more? Go to [email or web address] and sign in to your [employer] account. Enter A006 in the Search Health Information box to learn more about Learning About Low Amniotic Fluid. If you do not have an account, please click on the Sign Up Now link. Current as of: March 29, 2021 Content Version: 13.1 [employer]. Care instructions adapted under license by [employer]. If you have questions about a medical condition or this instruction, always ask your healthcare professional. [employer] disclaims any warranty or liability for your use of this information. documented in this encounter [employer] Work Phone: History of Present illness Narrative 10-06-2021 Daria Evans DO - 10/06/2021 1:35 PM Ammon Evans DO - 10/06/2021 10:06 AM Kandi Yarbrough [...] will get second dose of celestone at [facility]. Follow up with MFM on Saturday. Follow up with peds cardio in 1-2 weeks. Follow up with Dr. Hoover in one week. Attending in agreement with plan of care. Daria Evans DO LEAD WEB DEVELOPER Resident, PGY3 [place], [place] 10/06/2021, 1:35 PM Maternal Medicine Ultrasound Interval Note Carla North is a 31 y.o. female at 32w3d Case discussed with Dr. Guevara and Dr. Hermosillo. [facility] Sono Report (Verbal): breech, posterior, left lateral placenta, BPP 8/8, oligohydramnios, no evidence of hydrops, middle cerebral artery dopplers wnl. Plan: discharge after second dose of celestone pending heart tracing and maternal/ status. Peds cardiology to see the patient. Follow up with [facility] outpatient on Tuesday 10/09 Dr. Guevara updated, OB Residents updated, RN updated. Daria Evans DO Truck Crane Operator Helper Resident 10/06/2021, 10:06 AM Pt c/o headache related to lack of sleep or hunger, tylenol given LEAD WEB DEVELOPER PROGRESS NOTE Carla North is a 31 y.o. female at 32w3d, [...] # 1.73 1.10 - 3.70 k/uL Absolute Rincon # 0.52 0.10 - 1.20 k/uL Absolute Eos # 0.05 0.00 - 0.44 k/uL Basophils Absolute <0.03 0.00 - 0.20 k/uL Absolute Immature Granulocyte 0.03 0.00 - 0.30 k/uL WBC Morphology NOT REPORTED RBC Morphology NOT REPORTED Platelet Estimate NOT REPORTED TYPE AND SCREEN Collection Time: 10/05/21 8:21 PM Result Value Ref Range Expiration Date 10/08/2021,2359 Arm Band Number [id number] ABO/Rh O POSITIVE Antibody Screen NEGATIVE TSH without Reflex Collection Time: 10/05/21 8:21 PM Result Value Ref Range TSH 1.94 0.30 - 5.00 mIU/L T4, FREE Collection Time: 10/05/21 8:21 PM Result Value Ref Range Thyroxine, Free 1.04 0.93 - 1.70 ng/dL Assessment/Plan: Carla North is a 31 y.o. female at 32w3d [...] 25 daily Will update attending physician. Ellis Colmenaers DO Truck Crane Operator Helper Resident 10/06/2021, 5:35 AM documented in this encounter [employer] Phone: Evaluation + Plan note Note Date & Type Note Facility Evaluation + Plan note Future Appointments Appointment Date:04/24/2022 01:20:00 PM Scheduled Provider:Ana Em MD Location:[facility] Appointment Type: Video Visit [facility] [employer] Evaluation note Note Date & Type Note [...] episode of care documented in this encounter [employer] Phone: Hospital course Narrative Note Date & Type Note Facility Hospital course Narrative No data available for this section [facility] [employer] Progress note Note Date & Type Note Facility Progress note No data available for this section [facility] [employer] Advance Directives Latest Code Status on File Code Status Date Activated Date Inactivated Comments Full Code 10/05/2021 7:44 PM Summary Purpose Family History No Family History Records FoundNo Family History Records FoundNo Family History Records FoundNo Family History Records Found Additional Source Comments Reason for Visit (unrecogniz ed section and content) Reason Comments Other oligo, arrhyth arelis from [facility] Scheduled Active and Recently Administ ered Medications (unrecognized section and content) Medication Order 10/04/2021 10/05/2021 10/06/2021 aspirin EC tablet 81 mg 81 mg, Oral, DAILY, First dose on Sat10/06/21 at 0900, Do not crush or break. 0917 (Given - Provid er: Juliana Hamm, [place]) betamethasone acetate-betamethasone sodium phosphate (CELESTONE) injection 12 [...] (38 C), Starting on Azucena 10/05/21 at 1940, Maximum dose of acetaminophen is 4000 mg [...] Vomiting, Starting on Azucena 10/05/21 at 1941
Administer if oral route cannot be used.
Care Teams (unrecognized sec tion and content) Airline Mechanic Relationship Specialty Start Date End Date Augie Pedroza MD [address] [place] [address] PCP - General Family Medicine 10/05/21 Airline Mechanic Relationship Specialty Start Date End Date Yola Camarena MD [address] [place] [address] PCP - General 11/11/23 INFORMATION SOURCE (unrecogn ized section and content) DATE CREATED AUTHOR 11/08/2021 [facility] DATE CREATED AUTHOR AUTHOR'S ORGANIZ ATION 01/22/2022 [facility] DATE CREATED AUTHOR AUTHOR'S ORGANIZ ATION 04/28/2024 [facility] DATE CREATED AUTHOR AUTHOR'S ORGANIZ ATION 07/17/2024 [facility] FOR RECORDS PERTAINING TO PATIENTS WHO [...] BE BASED ON THE PRIMARY CLINICAL RECORDS. [facility] [employer] [facility]. provides no warranty or guarantee of the accuracy or completeness of information in this document.
== END 2024-07-21 08:37 | disposition home or self-care (01) ==
LOC: NOMS 08:36
PROVIDERS: PCP Nurse Practitioner; Visit Provider Obstetrics & Gynecology
DX: O09.299 Supervision of pregnancy with other poor reproductive or obstetric history, unspecified trimester (principal); Z3A.26 26 weeks gestation of pregnancy
CPT/HCPCS: 76816

== ENCOUNTER 2024-08-03 08:43 | Outpatient (OUT) | payer OTHER, SELFPAY ==
--- OUTSIDE RECORDS SUMMARY | 2024-08-03 08:48 | XMS_ITS | CCD ---
Author Organization [facility] Care Team Providers Care Mechanical Reliability Engineer Name Role Phone Augie Pedroza MD Primary Care Provider [phone] ELVIA DONIS Admitting Unavailable ELVIA DONIS Attending [...] Unavailable ZIEBER, DR FERN Andrade Consulting Unavailable EL PORTAL, DR CHELITA Melendez Consulting Unavailable MISC, DR DOSHI Primary Care Unavailable SNEHA, DR GARCIA Attending Unavailable SNEHA, DR GARCIA Admitting Unavailable SNEHA, DR GARCIA Consulting Unavailable KARASIK, DR RUVALCABA Consulting Unavailable KARASIK, DR RUVALCABA Attending Unavailable KARASIK, DR RUVALCABA Admitting Unavailable MISC, DR DOSHI Primary Care Unavailable SNEHA, DR GARCIA Consulting Unavailable ZIEBER, DR FERN Andrade Consulting Unavailable Ana Em Primary Care Physician TOSHA Camarena Attending Unavailable RADHA HOOVER Attending Unavailable RADHA HOOVER Attending Unavailable SNEHA, RADHA Attending Unavailable CHAO PANG Attending Unavailable RADHA HOOVER Attending Unavailable Yola Camarena MD Primary Care Provider Medications Current Medications Medication Drug Class(es) Dates [...] aspirin 81 mg delayed release oral tablet (5 sources) Platelet Aggregation Inhibitor, Nonsteroidal Anti-inflammatory Drug [...] q24hr, # 90 tab(s), Refills(s) 2, Pharmacy: [facility], 157.4, cm, 04/24/22 13:18:00 EDT, Height/Length Dosing, 72, kg, 03/22/22 14:14:00 EDT, Weight Dosing Start Date: 04/24/22 Status: Ordered Start: 03-22-2022 take 1 tablet by myah th every twenty-four hours Wellbutrin XL 150 mg/24 hours Tab-ER 150 mg = 1 tab(s), Oral, q24hr, # 30 tab(s), Refills(s) 0, Pharmacy: [facility], 157.4, cm, 03/22/22 14:14:00 EDT, Height/Length Dosing, 72, kg, 03/22/22 14:14:00 EDT, Weight Dosing Start Date: 03/22/22 Status: Ordered ondansetron 4 mg oral tablet (4 sources) Serotonin-3 Receptor Antagonist Start: 04-18-2024 take [...] 4 mg MV-Min-Fe Fum-FA-DHA ( 1 PO) (3 sources) MV-Min- Fe Fum-FA-DHA ( 1 PO) Take [...] UNS TRI NA/UNS] Onset: 10-06-2021 Episodic Other complications of (2 sources) H/O: ; Translations: [Supervision of with other poor reproductive or obstetric history, unspecified trimester] 07-15-2024 Episodic Other nutritional; endocrine; and metabolic disorders (1 source) Overweight in adulthood with body mass index of 25 or more but less than 30; Translations: [Body mass index (BMI) 29.0-29.9, adult] Onset: 03-22-2022 Episodic Other conditions (2 sources) exposure to drug; Translations: [ affected by maternal noxious substance, unspecified] Onset: 10-05-2021 Episodic Other and delivery including normal (6 sources) Encounter for supervision of normal , unspecified, second trimester; Translations: [Second trimester ] Onset: 09-05-2021 Episodic Other screening for suspected conditions (not mental disorders or infectious disease) (10 sources) Encounter for screening for Streptococcus B; [...] WEEKS GESTATION OF ] Onset: 10-25-2021 Episodic Residual codes; unclassified (2 sources) Gestation period, 25 weeks; Translations: [25 weeks gestation of ] 07-15-2024 Episodic Unclassified (1 source) Patient encounter status 03-22-2022 Past or Other Problems Problem Classification Problem Date Documented Date Episodic/Chronic Immunizations and screening for infectious disease (1 source) Encounter for screening for human papillomavirus (HPV); Translations: [ENC SCREENING HUMAN PAPILLOMAVIRUS] Onset: 05-24-2021 Episodic Other complications of (1 source) Other placental disorders, first trimester; Translations: [OTH PLACENTAL DISORDER FIRST TRI] Onset: 04-26-2021 Episodic Residual codes; unclassified (4 sources) Personal [...] Test Name Value Interpretation Reference Range Facility Urinalysis macro (dipstick) panel (U)on 07-15-2024 Bilirubin, UA Negative Negative - 4(70) +++ mg/dL [facility] Blood, UA Negative Negative - 50 Onur/mcL [facility] Clarity, UA Clear [facility] Color, UA Yellow [facility] Glucose, UA Negative Negative - 1999(110) ++++ mg/dL [facility] Interpretation and review of laboratory results Abnormal [facility] Ketones, UA Negative Negative - 160(16) ++++ mg/dL [facility] Leukocytes, UA Trace Negative - 500+++ Hernan/mcL [facility] Nitrite, UA Negative Negative - Positive [facility] pH, UA 7.0 5 - 9 [facility] Protein, UA Negative Negative - 1999(20) ++++ mg/dL [facility] Spec Grav, UA 1.020 1 - 1.03 [facility] Urobilinogen, UA 0.2 0.2 - 12 mg/dL [facility] RAD - Ultrasound Reporton RAD - Ultrasound Report [id number] Normal [facility] GROUP B STREP CULTUREon 10-15 S. agalactiae Ag Ql (Unsp spec) Culture Observations: NEGATIVE FOR GROUP B STREPTOCOCCUS. Normal [facility] Comment on above: Performed By: #### R PRQ #### [facility] [address] [place] [address] Nancy Piper US PREG BIOPHY W NON [...] by: CHELITA CARDENAS Date: 2021-11-02 13:37 Normal [facility] US PREG BIOPHY W NON STRESSo n [...] by: CHELITA CARDENAS Date: 2021-10-26 14:34 Normal [facility] US PREG BIOPHY W NON STRESSo n [...] by: FERN CALZADA Date: 2021-10-19 14:42 Normal [facility] US PREG BIOPHY W NON STRESSo n [...] by: FERN CALZADA Date: 2021-10-12 13:32 Normal [facility] Miscellaneouson 10-09-2021 Send Out Report FORWARD TO [facility] Comment on above: Performed By: #### C MIS #### [employer] [address] [place] [address] [id number] Sr. [employer] System Administrator: Mark Hernadez MD SSAon 10-09-2021 SSA <0.3 Normal <7.0 [facility] Comment on above: Result Comment: Reference Range: <7.0 Negative 7.0-10.0 Equivocal >10.0 Positive Performed By: #### C DP, FT4, TSH, SSARO, SSBLA #### [facility] [address] [place] [id number] Sr. [employer] System Administrator: Mark Hernadez MD SSBon 10-09-2021 SSB <0.3 Normal <7.0 [facility] Comment on above: Result Comment: Reference Range: <7.0 Negative 7.0-10.0 Equivocal >10.0 Positive Performed By: #### C DP, FT4, TSH, SSARO, SSBLA #### [facility] [address] [place] [address] [id number] Sr. [employer] System Administrator: Mark Hernadez MD [facility] 10-06-2021 Test Name [facility] Comment on above: Performed By: #### C MIS #### [employer] [address] [place] [address] [phone] Sr. [employer] System Administrator: Mark Hernadez MD CBC WITH AUTO DIFFERENTIALon 10-05-2021 Absolute Eos # 0.05 [facility] th Absolute Immature Granulocyte 0.03 [facility] [employer] Absolute Lymph # 1.73 [facility] alth Absolute Rains # 0.52 [facility] lt Basophils (Bld) [#/Vol] 10*3/uL [facility] Basophils/100 WBC (Bld) 0 % 0 - 2 % [facility] [employer] Differential Type NOT REPORTED [facility] Eosinophils/100 WBC (Bld) 1 % 1 - 4 % [facility] Hematocrit (Bld) [Volume fraction] 30.1 % Low 36.3 - 47.1 % [facility] Hemoglobin.gastrointe stinal spec 1 Ql (Stl) 10.3 g/dL Low 11.9 - 15.1 g/dL [facility] Immature granulocytes/100 WBC (Bld) 0 % 0 [facility] Interpretation and review of laboratory results Abnormal [facility] Lymphocytes/100 WBC (Bld) 26 % 24 - 43 % [facility] MCH (RBC) [Entitic mass] 31.3 pg 25.2 - 33.5 pg [facility] MCHC (RBC) [Mass/Vol] 34.2 g/dL 28.4 - 34.8 g/dL [facility] MCV (RBC) [Entitic vol] 91.5 fL 82.6 - 102.9 fL [facility] Monocytes/100 WBC (Bld) 8 % 3 - 12 % [facility] NRBC Automated 0.0 0.0 per 100 WBC [facility] Platelet distribution width (Bld) [Ratio] 13.6 % 11.8 - 14.4 % [facility] Platelet Estimate NOT REPORTED [facility] Platelet mean volume (Bld) [Entitic vol] 9.8 fL 8.1 - 13.5 fL [facility] Platelets (Bld) [#/Vol] 265 10*3/uL [facility] RBC (Bld) [#/Vol] 3.29 10*6/uL Low 3.95 - 5.1 1 m/uL [facility] RBC (Bld) [#/Vol] NOT REPORTED [facility] Segmented neutrophils/100 WBC (Bld) 65 % 36 - 65 % [facility] Segs [facility] ([facility]ld) [#/Vol] 6.7 10*3/uL [facility] WBC (Bld) [#/Vol] NOT REPORTED [facility] CBC with Diffon 10-05-2021 Abs. Basophil <0.03 Normal 0.00-0.20 [facility] Comment on above: Performed By: #### C DP, FT4, TSH, SSARO, SSBLA #### [address] [address] Sr. [employer] System Administrator: Mark Hernadez MD Abs.Imm.Granulocyte 0.03 k/uL Normal 0.00-0.30 [facility] Comment on above: Performed By: #### C DP, FT4, TSH, SSARO, SSBLA #### [place] [address] Sr. [employer] System Administrator: Mark Hernadez MD Abs.Neutrophil (Seg) 4.35 k/uL Normal 1.50-8.10 [facility] Comment on above: Performed By: #### C DP, FT4, TSH, SSARO, SSBLA #### [place] [address] Sr. [employer] System Administrator: Mark Hernadez MD Basophils/100 WBC (Bld) 0 % Normal 0-2 [facility] Comment on above: Performed By: #### C DP, FT4, TSH, SSARO, SSBLA #### [place] [address] Sr. [employer] System Administrator: Mark Hernadez MD Eosinophils (Bld) [#/Vol] 0.05 10*3/uL Normal 0.00-0.44 [facility] Comment on above: Performed By: #### C DP, FT4, TSH, SSARO, SSBLA #### [address] [address] Sr. [employer] System Administrator: Mark Hernadez MD Eosinophils/100 WBC (Bld) 1 % Normal 1-4 [facility] Comment on above: Performed By: #### C DP, FT4, TSH, SSARO, SSBLA #### [address] [address] Sr. [employer] System Administrator: Mark Hernadez MD Erythrocyte distribution width (RBC) [Ratio] 13.6 % Normal 11.8-14.4 [facility] Comment on above: Performed By: #### C DP, FT4, TSH, SSARO, SSBLA #### [address] [address] Sr. [employer] System Administrator: Mark Hernadez MD Hematocrit (Bld) [Volume fraction] 30.1 % Low 36.3-47.1 [facility] Comment on above: Performed By: #### C DP, FT4, TSH, SSARO, SSBLA #### [place] [address] Sr. [employer] System Administrator: Mark Hernadez MD Hemoglobin (Bld) [Mass/Vol] 10.3 g/dL Low 11.9-15.1 [facility] Comment on above: Performed By: #### C DP, FT4, TSH, SSARO, SSBLA #### [place] [address] Sr. [employer] System Administrator: Mark Hernadez MD Immature granulocytes/100 WBC (Bld) 0 % Normal 0 [facility] Comment on above: Performed By: #### C DP, FT4, TSH, SSARO, SSBLA #### [place] [address] Sr. [employer] System Administrator: Mark Hernadez MD Lymphocytes (Bld) [#/Vol] 1.73 10*3/uL Normal 1.10-3.70 [facility] Comment on above: Performed By: #### C DP, FT4, TSH, SSARO, SSBLA #### [place] [address] Sr. [employer] System Administrator: Mark Hernadez MD Lymphocytes/100 WBC (Bld) 26 % Normal 24-43 [facility] Comment on above: Performed By: #### C DP, FT4, TSH, SSARO, SSBLA #### [address] [address] Sr. [employer] System Administrator: Mark Hernadez MD MCH (RBC) [Entitic mass] 31.3 pg Normal 25.2-33.5 [facility] Comment on above: Performed By: #### C DP, FT4, TSH, SSARO, SSBLA #### [address] [address] Sr. [employer] System Administrator: Mark Hernadez MD MCHC (RBC) [Mass/Vol] 34.2 g/dL Normal 28.4-34.8 [facility] Comment on above: Performed By: #### C DP, FT4, TSH, SSARO, SSBLA #### [address] [address] Sr. [employer] System Administrator: Mark Hernadez MD MCV (RBC) [Entitic vol] 91.5 fL Normal 82.6-102.9 [facility] Comment on above: Performed By: #### C DP, FT4, TSH, SSARO, SSBLA #### [place] [address] Sr. [employer] System Administrator: Mark Hernadez MD Monocytes (Bld) [#/Vol] 0.52 10*3/uL Normal 0.10-1.20 [facility] Comment on above: Performed By: #### C DP, FT4, TSH, SSARO, SSBLA #### [address] [address] Sr. Unix System Administrator: Mark Hernadez MD Monocytes/100 WBC (Bld) 8 % Normal 3-12 [facility] Comment on above: Performed By: #### C DP, FT4, TSH, SSARO, SSBLA #### [place] [address] Sr. [employer] System Administrator: Mark Hernadez MD Neutrophil (Seg) 65 % Normal 36-65 [facility] Comment on above: Performed By: #### C DP, FT4, TSH, SSARO, SSBLA #### [address] [place] [address] Sr. [employer] System Administrator: Mark Hernadez MD NRBC Automated 0.0 per 100 WBC Normal 0.0 [facility] Comment on above: Performed By: #### C DP, FT4, TSH, SSARO, SSBLA #### [address] [address] Sr. Unix System Administrator: Mark Hernadez MD Platelet mean volume (Bld) [Entitic vol] 9.8 fL Normal 8.1-13.5 [facility] Comment on above: Performed By: #### C DP, FT4, TSH, SSARO, SSBLA #### [address] [address] Sr. Unix System Administrator: Mark Hernadez MD Platelets (Bld) [#/Vol] 265 10*3/uL Normal 138-453 [facility] Comment on above: Performed By: #### C DP, FT4, TSH, SSARO, SSBLA #### [address] [address] Sr. [employer] System Administrator: Mark Hernadez MD RBC (Bld) [#/Vol] 3.29 10*6/uL Low 3.95-5.11 [facility] Comment on above: Performed By: #### C DP, FT4, TSH, SSARO, SSBLA #### [address] [address] Sr. [employer] System Administrator: Mark Hernadez MD WBC (Bld) [#/Vol] 6.7 10*3/uL Normal 3.5-11.3 [facility] Comment on above: Performed By: #### C DP, FT4, TSH, SSARO, SSBLA #### [address] [address] Sr. Unix System Administrator: Mark Hernadez MD Auto Diff Performed NOT REPORTED Normal [facility] Comment on above: Performed By: #### C DP, FT4, TSH, SSARO, SSBLA #### [facility] [place] [address] Sr. Unix System Administrator: Mark Hernadez MD Platelet Comment NOT REPORTED Normal [facility] Comment on above: Performed By: #### C DP, FT4, TSH, SSARO, SSBLA #### [facility] [place] [address] Sr. Unix System Administrator: Mark Hernadez MD RBC morphology finding Nom (Bld) NOT REPORTED Normal [facility] Comment on above: Performed By: #### C DP, FT4, TSH, SSARO, SSBLA #### [facility] [address] [place] [id number] Sr. Unix System Administrator: Mark Hernadez MD WBC Morphology NOT REPORTED Normal [facility] Comment on above: Performed By: #### C DP, FT4, TSH, SSARO, SSBLA #### [facility] [address] [place] [address] Sr. Unix System Administrator: Mark Hernadez MD No Panel Informationon 10-05 [facility] T4, FREEon 10-05-2021 Thyroxine, Free 1.04 ng/dL 0.93 - 1.70 ng/dL [facility] TSH without Reflexon TSH Qn 1.94 m[IU]/L [facility] TYPE AND SCREENon 10-05-2021 ABO/Rh Positive [facility] Arm Band Number [id number] [facility] Expiration Date 10/08/2021,2359 [facility] Thyroid Stim. Horm.on 2020 TSH Qn 1.94 m[IU]/L Normal 0.30-5.00 [facility] Comment on above: Performed By: #### C DP, FT4, TSH, SSARO, SSBLA #### [facility] [address] [place] [address] Sr. Unix System Administrator: Mark Hernadez MD Thyroxine, Freeon 10-05-2021 Thyroxine, Free 1.04 ng/dL Normal 0.93-1.70 [facility] Comment on above: Performed By: #### C DP, FT4, TSH, SSARO, SSBLA #### [facility] [address] [place] [address] Sr. Unix System Administrator: Mark Hernadez MD Type + Screenon 10-05-2021 Type + Screen Sample Expiration 10/08/2021,2359 Arm Band Number BE [id number] ABO/Rh(D) O POSITIVE Antibody Screen NEGATIVE Normal [facility] Comment on above: Performed By: #### T YS #### [facility] [address] [place] [address] Sr. [employer] System Administrator: Mark Hernadez MD US PREG BIOPHY W [...] by: FERN CALZADA Date: 2021-10-05 13:16 Normal [facility] US PREG GROWTHon 10-05-2021 US PREG GROWTH [...] (3rd percentile). 3. Slightly thickened appearance of Lagrange's jelly surrounding the umbilical cord; nonspecific but can be associated with gestational diabetes. Report placed in the stat call folder. Electronically authenticated by: FERN CALZADA Date: 2021-10-05 13:22 Normal [facility] CBC AUTO DIFFon 09-05-2021 BASO # 0.0 103/ul Normal 0.0-0.1 [facility] Comment on above: Performed By: #### Nora SALINAS #### [facility] [address] [id number] Nancy Veronique Basophils/100 WBC (Bld) 0.3 % Normal 0.2-2.0 [facility] Comment on above: Performed By: #### Nora SALINAS #### [facility] [address] [address] Nancy Veronique EO # 0.1 103/ul Normal 0.0-0.7 [facility] Comment on above: Performed By: #### Nora SALINAS #### [facility] [address] [id number] Nancy Veronique Eosinophils/100 WBC (Bld) 0.8 % Critically low 0.9-7.0 [facility] Comment on above: Performed By: #### Nora SALINAS #### [facility] [address] [id number] Nancy Veronique Erythrocyte distribution width (RBC) [Ratio] 13.5 % Normal 11.0-15.0 [facility] Comment on above: Performed By: #### Nora SALINAS #### [facility] [address] [id number] Nancy Veronique Hematocrit (Bld) [Volume fraction] 33.0 % Critically low 36.0-48.0 [facility] Comment on above: Performed By: #### Nora SALINAS #### [facility] [address] [phone] Nancy Veronique Hemoglobin (Bld) [Mass/Vol] 10.8 g/dL Critically low 12.0-16.0 [facility] Comment on above: Performed By: #### Nora SALINAS #### [facility] [address] [id number] Nancy Veronique IG # 0.05 10e3/ul Critically high 0.00-0.03 [facility] Comment on above: Performed By: #### Nora SALINAS #### [facility] [address] [id number] Nancy Veronique IG % 0.6 % Critically high 0.0-0.5 [facility] Comment on above: Performed By: #### Nora SALINAS #### [facility] [address] [place] [address] Nancy Veronique LYMPH # 1.4 103/ul Normal 1.2-3.8 [facility] Comment on above: Performed By: #### Nora SALINAS #### [facility] [address] [place], [place] [id number] Nancy Veronique Lymphocytes/100 WBC (Bld) 17.1 % Critically low 20.5-60.0 [facility] Comment on above: Performed By: #### Nora SALINAS #### [facility] [address] [place], [place] [id number] Nancy Veronique MANUAL DIFF REQ NO Normal [facility] Comment on above: Performed By: #### Nora SALINAS #### [facility] [address] [phone] Nancy Veronique MCH (RBC) [Entitic mass] 31.4 pg Normal 26.7-34.0 [facility] Comment on above: Performed By: #### Nora SALINAS #### [facility] [address] [phone] Nancy Veronique MCHC (RBC) [Mass/Vol] 32.7 g/dL Normal 29.9-35.2 [facility] Comment on above: Performed By: #### Nora SALINAS #### [facility] [address] [place], [place] [address] Nancypatricia Kellyen MCV (RBC) [Entitic vol] 95.9 fL Normal 81.0-99.0 [facility] Comment on above: Performed By: #### Nora SALINAS #### [facility] [address] [place], [place] [phone] Nancypatricia Kellyen MONO # 0.5 103/ul Normal 0.3-0.8 [facility] Comment on above: Performed By: #### Nora SALINAS #### [facility] [address] [place], [place] [id number] Nancy Veronique Monocytes/100 WBC (Bld) 6.3 % Normal 1.7-12.0 [facility] Comment on above: Performed By: #### Nora SALINAS #### [facility] [address] [place], [place] [id number] Nancy Veronique NEUT # 5.9 103/ul Normal 1.4-6.5 [facility] Comment on above: Performed By: ###Eddie SALINAS #### [facility] [address] [place], [place] [id number] Nancy Veronique Neutrophils/100 WBC (Bld) 74.9 % Normal 43.0-75.0 [facility] Comment on above: Performed By: ###Eddie SALINAS #### [facility] [address] [place], [place] [phone] Anncypatricia Piper Platelet mean volume (Bld) [Entitic vol] 9.9 fL Normal 9.5-13.5 [facility] Comment on above: Performed By: ###Eddie SALINAS #### [facility] [address] [place], [place] [id number] Nancy Veronique PLT 243 103/ul Normal 150-450 [facility] Comment on above: Performed By: ###Eddie SALINAS #### [facility] [address] [place], [place] [phone] Nancy Veronique RBC 3.44 106/ul Critically low 4.20-5.40 [facility] Comment on above: Performed By: ###Eddie SALINAS #### [facility] [address] [place], [place] [phone] Nancy Veronique WBC 7.9 103/ul Normal 4.0-11.0 [facility] Comment on above: Performed By: #### V MORISEL #### [facility] [address] [place], [place] [address] Nancy Piper GLUCOSE - 1HRon 09-05-2021 Glucose [Mass/Vol] 98 mg/dL Normal 74-106 [facility] Comment on above: Performed By: #### G LU1HR #### [facility] [address] [place], [place] [address] Dr. Leonardo Khalil US PREG ANATOMY SINGLEon [...] by ultrasound, 88th percentile by expected) FL/AC: [id number] FL/BPD: 0.397555 HC/AC: 1.692289 GESTATIONAL AGE: Age by EDC: 20 weeks, 6 days ÁLVARO by EDC: 11/28/2021 Age by current US: 21 weeks, 3 days ÁLVARO by current US: 11/24/2021 IMPRESSION: 1. Single live intrauterine with growth detailed above. Normal [facility] Pap IG, rfx Aptima HPV, rfx 16/18,45 + Con 05-22-2021 . . Normal [facility] Comment on above: Result Comment: Perf ormed at: WB Performed By: #### V RITA #### [facility] [address] [place] [address] Nancy Piper Chlamydia, Nuc. Acid Amp Negative Normal Negative [facility] Comment on above: Result Comment: Perf ormed at: =G Performed By: #### V RITA #### [facility] [address] [place] [address] Nancy Piper DIAGNOSIS: Comment Normal [facility] Comment on above: Result Comment: NEGA TIVE FOR INTRAEPITHELIAL LESION OR MALIGNANCY. Performed at: WB Performed By: #### V RITA #### [facility] [address] [place] [address] Nancy Veronique Gonococcus, Nuc. Acid Amp Negative Normal Negative [facility] Comment on above: Result Comment: Perf ormed at: =G Performed By: #### V RITA #### [facility] [address] [place] [address] Nancypatricia Piper HPV Aptima Negative Normal Negative [facility] Comment on above: Result Comment: This nucleic acid amplification test detects fourteen high-risk HPV types (16,18,31,33,35,39,45,51,52,56,58,59,66,68) without differentiation. Performed at: =G Performed By: #### Nora SALINAS #### [facility] [address] [place] [address] Nancy Veronique Methodology: Comment Normal [facility] [place] Comment on above: Result Comment: This liquid based ThinPrep(R) pap test was screened with the use of an image guided system. Performed at: WB Performed By: #### Nora SUBRAMANIANEL #### [facility] [address] [place] [address] Nancy Veronique Note: Comment Normal [facility] [place] Comment on above: Result Comment: The Pap smear is a screening test designed to aid in the detection of premalignant and malignant conditions of the uterine cervix. It is not a diagnostic procedure and should not be used as the sole means of detecting cervical cancer. Both false-positive and false-negative reports do occur. . Performed at: WB Performed By: #### V RITA #### [facility] [address] [place] [address] Nancypatricia Piper Performed by: Comment Normal [facility] Comment on above: Result Comment: Irving Alarcon, Structural Metal Worker (ASCP) Performed at: WB Performed By: #### V RITA #### [facility] [address] [place] [address] Nancypatricia Piper Specimen adequacy: Comment Normal [facility] Comment on above: Result Comment: Sati sfactory for evaluation. No endocervical component is identified. Performed at: WB Performed By: #### V RITA #### [facility] [address] [place] [address] Nancy Piper CULTURE URINEon 05-18-2021 CULTURE URINE Culture Observations : LIGHT GROWTH OF MIXED GENITAL KRISTEL. NO POTENTIAL PATHOGENS SEEN. Normal [facility] Comment on above: Performed By: #### U RCX #### [facility] [address] [place] [address] Nancy Piper UA RANDOM W/MICROSCOPICon BACTERIA NONE SEEN Normal NONE SEEN [facility] [place] Comment on above: Performed By: #### R PRQ #### [facility] [address] [place] [address] Nancy Veronique Bilirubin Ql (U) Negative Normal NEGATIVE [facility] Comment on above: Performed By: #### R PRQ #### [facility] [address] [place] [address] Nancy Veronique CAST NONE SEEN Normal NONE SEEN [facility] [place] Comment on above: Performed By: #### R PRQ #### [facility] [address] [place] [address] Nancy Veronique Clarity (U) CLEAR Normal CLEAR [facility] [place] Comment on above: Performed By: #### R PRQ #### [facility] [address] [place] [address] Nancy Veronique Color (U) LT. YELLOW Normal YELLOW [facility] [place] Comment on above: Performed By: #### R PRQ #### [facility] [address] [address] Nancy Veronique Crystals LM Nom (Urine sed) NONE SEEN Normal NONE SEEN [facility] Comment on above: Performed By: #### R PRQ #### [facility] [address] [place] [address] Nancy Veronique Epithelial cells LM Ql (Urine sed) FEW Abnormal NONE SEEN /RARE [facility] Comment on above: Performed By: #### R PRQ #### [facility] [address] [place] [address] Nancy Veronique Glucose Ql (U) Negative Normal NEGATIVE [facility] Comment on above: Performed By: #### R PRQ #### [facility] [address] [place] [address] Nancy Veronique Hemoglobin Ql (U) Negative Normal NEGATIVE [facility] Comment on above: Performed By: #### R PRQ #### [facility] [address] [place] [address] Nancy Veronique Ketones Ql (U) Negative Normal NEGATIVE [facility] Comment on above: Performed By: #### R PRQ #### [facility] [address] [place] [address] Nancy Veronique LEUKOCYTES Negative Normal NEGATIVE [facility] Comment on above: Performed By: #### R PRQ #### [facility] [address] [place] [address] Nancy Veronique MUCOUS TRACE Abnormal NONE SEEN [facility] Comment on above: Performed By: #### R PRQ #### [facility] [address] [place] [address] Nancy Veronique Nitrite Ql (U) Negative Normal NEGATIVE [facility] Comment on above: Performed By: #### R PRQ #### [facility] [address] [place] [address] Nancy Veronique pH (U) 5.5 [pH] Normal 5-9 [facility] Comment on above: Performed By: #### R PRQ #### [facility] [address] [place] [address] Nancy Veronique RBC NONE SEEN Abnormal 0-2 [facility] [place] Comment on above: Performed By: #### R PRQ #### [facility] [address] [place] [address] Nancy iPper SPEC GRAVITY >=1.030 Abnormal 1.005-<=1.025 [facility] Comment on above: Performed By: #### R PRQ #### [facility] [address] [place] [address] Nancy Piper UA PROTEIN Negative Normal NEGATIVE/ TRACE [facility] Comment on above: Performed By: #### R PRQ #### [facility] [address] [place] [address] Nancy Piper Urobilinogen Qn (U) 0.2 {Travis'U}/dL Normal 0.2 - 1. 0 [facility] Comment on above: Performed By: #### R PRQ #### [facility] [address] [place] [address] Nancy Piper WBC NONE SEEN Normal NONE SEEN [facility] Comment on above: Performed By: #### R PRQ #### [facility] [address] [place] [address] Nancy Piper HEMOGLOBINOPATHY FRACTIONATI ON CASCADEon 05-17-2021 HGB A 97.8 % Normal 96.4-98.8 [facility] [place] Comment on above: Performed By: #### H GBCAS #### [facility] [address] [place] [address] Nancy Piper HGB A2 2.2 % Normal 1.8-3.2 [facility] Comment on above: Performed By: #### H GBCAS #### [facility] [address] [place] [address] Nancy Piper HGB F 0.0 % Normal 0.0-2.0 [facility] Comment on above: Performed By: #### H GBCAS #### [facility] [address] [place] [address] Nancy Piper HGB S 0.0 % Normal 0.0 [facility] Comment on above: Performed By: #### H GBCAS #### [facility] [address] [place], [place] [id number] Nancy Ppier Interpretation: Comment Normal [facility] Comment on above: Result Comment: Norm al hemoglobin present; no hemoglobin variant or thalassemia observed. Performed By: #### H GBCAS #### [facility] [address] [place] [address] Nancy Piper HEP B SURFACE ANTIGEN SCREEN on 05-17-2021 HBsAg Screen Negative Normal Negative [facility] [place] Comment on above: Performed By: #### H BSANS #### [facility] [address] [place] [address] Nancy Piper HEPATITIS C ANTIBODYon 05-17 Hep C Virus Ab <0.1 Normal 0.0-0.9 [facility] Comment on above: Result Comment: Nega tive: < 0.8 Indeterminate: 0.8 - 0.9 Positive: > 0.9 . The CDC recommends that a positive HCV antibody result be followed up with a HCV Nucleic Acid Amplification test (275231). Performed By: #### H CV #### [facility] [address] [place] [address] Nancy Piper HIV 1 AND 2 WITH REFLEXon HIV Screen 4th Generation wRfx Non-Reactive Normal Non Reactive [facility] [place] Comment on above: Performed By: #### V ARCEL #### [facility] [address] [place] [address] Nancy Piper RPR QUANTon 05-17-2021 Rapid Plasma Reagin, Quant Non-Reactive Normal NonRea<1:1 [facility] [place] Comment on above: Performed By: #### R PRQ #### [facility] [address] [place] [address] Nancy Piper RUBELLA AB IGGon 05-17-2021 Rubella Antibodies, IgG 4.07 index Normal Immune >0.99 [facility] [place] Comment on above: Result Comment: Non- immune <0.90 Equivocal 0.90 - 0.99 Immune >0.99 Performed By: #### R UBIGG #### [facility] [address] [place] [address] Nancy Piper VARICELLA IGG ABon Varicella Zoster IgG 1067 index Normal Immune >165 [facility] [place] Comment on above: Result Comment: Nega tive <135 Equivocal 135 - 165 Positive >165 A positive result generally indicates exposure to the pathogen or administration of specific immunoglobulins, but it is not indication of active infection or stage of disease. Performed By: #### V MORISEL #### [facility] [address] [place], [place] [id number] Nancy Piper CBC AUTO DIFFon 05-16-2021 BASO # 0.0 103/ul Normal 0.0-0.1 [facility] [place] Comment on above: Performed By: #### C BC #### [facility] [address] [place], [place] [address] Nancy Piper Basophils/100 WBC (Bld) 0.3 % Normal 0.2-2.0 [facility] [place] Comment on above: Performed By: #### C BC #### [facility] [address] [place], [place] [id number] Nancy Piper EO # 0.1 103/ul Normal 0.0-0.7 [facility] [place] Comment on above: Performed By: #### C BC #### [facility] [address] [place], [place] [address] Nancy Piper Eosinophils/100 WBC (Bld) 0.8 % Critically low 0.9-7.0 [facility] [place] Comment on above: Performed By: #### C BC #### [facility] [address] [place], [place] [address] Nancy Piper Erythrocyte distribution width (RBC) [Ratio] 12.6 % Normal 11.0-15.0 [facility] Comment on above: Performed By: #### C BC #### [facility] [address] [place], [place] [address] Nancy Piper Hematocrit (Bld) [Volume fraction] 36.7 % Normal 36.0-48.0 [facility] [place] Comment on above: Performed By: #### C BC #### [facility] [address] [place], [place] [address] Nancy Piper Hemoglobin (Bld) [Mass/Vol] 12.5 g/dL Normal 12.0-16.0 [facility] [place] Comment on above: Performed By: #### C BC #### [facility] [address] [place] [address] Nancypatricia Piper IG # 0.03 10e3/ul Normal 0.00-0.03 [facility] [place] Comment on above: Performed By: #### C BC #### [facility] [address] [address] Nancy Veronique IG % 0.3 % Normal 0.0-0.5 [facility] [place] Comment on above: Performed By: #### C BC #### [facility] [address] [place] [address] Nancy Veronique LYMPH # 1.7 103/ul Normal 1.2-3.8 [facility] [place] Comment on above: Performed By: #### C BC #### [facility] [address] [place] [address] Nancy Piper Lymphocytes/100 WBC (Bld) 16.9 % Critically low 20.5-60.0 [facility] Comment on above: Performed By: #### C BC #### [facility] [address] [place], [place] [id number] Nancypatricia Piper MANUAL DIFF REQ NO Normal [facility] Comment on above: Performed By: #### C BC #### [facility] [address] [place], [place] [address] Nancy Veronique MCH (RBC) [Entitic mass] 30.7 pg Normal 26.7-34.0 [facility] [place] Comment on above: Performed By: #### C BC #### [facility] [address] [place] [address] Nancy Veronique MCHC (RBC) [Mass/Vol] 34.1 g/dL Normal 29.9-35.2 [facility] Comment on above: Performed By: #### C BC #### [facility] [address] [place], [place] [address] Nancy Veronique MCV (RBC) [Entitic vol] 90.2 fL Normal 81.0-99.0 [facility] [place] Comment on above: Performed By: #### C BC #### [facility] [address] [place], [place] [address] Nancy Veronique MONO # 0.7 103/ul Normal 0.3-0.8 [facility] Comment on above: Performed By: #### C BC #### [facility] [address] [id number] Nancy Veronique Monocytes/100 WBC (Bld) 6.5 % Normal 1.7-12.0 [facility] Comment on above: Performed By: #### C BC #### [facility] [address] [place] [address] Nancy Veronique NEUT # 7.6 103/ul Critically high 1.4-6.5 [facility] Comment on above: Performed By: #### C BC #### [facility] [address] [place], [place] [address] Nancy Veronique Neutrophils/100 WBC (Bld) 75.2 % Critically high 43.0-75.0 [facility] Comment on above: Performed By: #### C BC #### [facility] [address] [place], [place] [address] Nancy Veronique Platelet mean volume (Bld) [Entitic vol] 10.0 fL Normal 9.5-13.5 [facility] Comment on above: Performed By: #### C BC #### [facility] [address] [place], [place] [address] Nanyc Veronique PLT 275 103/ul Normal 150-450 [facility] Comment on above: Performed By: #### C BC #### [facility] [address] [place], [place] [address] Nancy Veronique RBC 4.07 106/ul Critically low 4.20-5.40 [facility] Comment on above: Performed By: #### C BC #### [facility] [address] [place], [place] [address] Nancy Veronique WBC 10.2 103/ul Normal 4.0-11.0 [facility] Comment on above: Performed By: #### C BC #### [facility] [address] [place], [place] [address] Nancy Veronique GLYCOHEMOGLOBIN A1Con 2020 ADA RECOMMENDATION ADA THERAPEUTIC TARGET 6.0 - 7.0 ACTION SUGGESTED > 7.0 Normal [facility] Comment on above: Performed By: #### A 1C #### [facility] [address] [id number] Nancy Piper Glucose [Mass/Vol] 91 mg/dL Normal [facility] Comment on above: Performed By: #### A 1C #### [facility] [address] [address] Nancy Piper HbA1c (Bld) [Mass fraction] 4.8 % Normal <=6.0 [facility] Comment on above: Performed By: #### A 1C #### [facility] [address] [place], [place] [address] Nancy Piper PREG QUANT HCGon 05-16-2021 HCG QUANT 21110 mIU/mL Normal [facility] Comment on above: Result Comment: Dilu mara Performed By: #### Nora SALINAS #### [facility] [address] [place], [place] [address] Nancy Piper HCG RANGE SEE BELOW Normal [facility] Comment on above: Result Comment: 5-50 0-1 WEEK 40-300 1-2 WEEKS 100-1,000 2-3 WEEKS 500-6,000 3-4 WEEKS 5,000-200,000 1-2 MONTHS 10,000-100,000 2-3 MONTHS 3,000-50,000 2ND TRIMESTER 1,000-50,000 3RD TRIMESTER Performed By: #### Nora SALINAS #### [facility] [address] [place], [place] [address] Nancy Piper TYPE AND SCREENon 05-16-2021 TYPE AND SCREEN Negative Normal [facility] Comment on above: Performed By: #### R PRQ #### [facility] [address] [place], [place] [address] Nancy Piper US PREG TVon 04-18-2021 US [...] authenticated by: CHELITA CARDENAS Date: 2021-04-18 12:02 [facility] Vital Signs Date Time Vital Sign Value Performing Clinician Evan luna 07-15-2024 10:54-0400 Body mass index (BMI) [Ratio] 31.46 kg/m2 [employer] Work Phone: [facility] [employer] 07-15-2024 10:54-0400 Body weight 78.02 kg [employer] Work Phone: [facility] [employer] 07-15-2024 10:54-0400 Diastolic blood pressure 70 mm[Hg] [employer] Work Phone: [facility] [employer] 07-15-2024 10:54-0400 Systolic blood pressure 110 mm[Hg] Radha [employer] Work Phone: [facility] [employer] 10-06-2021 09:06-0500 Body temperature 98.2 [degF] Elvia Donis DO Work Phone: [employer] 10-06-2021 09:06-0500 Diastolic blood pressure 74 mm[Hg] Elvia Donis DO Work Phone: [employer] 10-06-2021 09:06-0500 Heart rate 84 /min Elvia Donis DO Work Phone: [employer] 10-06-2021 09:06-0500 Respiratory rate 17 /min Elvia Donis DO Work Phone: [employer] 10-06-2021 09:06-0500 SaO2% (BldA) [Mass fraction] 99 % Elvia Donis DO Work Phone: [employer] 10-06-2021 09:06-0500 Systolic blood pressure 121 mm[Hg] Elvia Donis DO Work Phone: [employer] 10-05-2021 18:40-0500 Body height 157.5 cm Elvia Donis DO Work Phone: [employer] 10-05-2021 18:40-0500 Body mass index (BMI) [Ratio] 30.36 kg/m2 Elvia Donis DO Work Phone: [employer] 10-05-2021 18:40-0500 Body weight 75.3 kg Elvia Donis DO Work Phone: [employer] Encounters Encounter Date Encounter Type Care Provider Facility Start: 07-15-2024 End: 07-15-2024 Bamboo flowsheet Radha Sneha DO Work Phone: [facility] Start: 07-15-2024 End: 07-15-2024 Bamboo flowsheet Radha Sneha DO Work Phone: [facility] Start: 07-15-2024 End: 07-15-2024 flow sheet Radha Sneah DO Work Phone: [facility] Comment on above: Second trimester pre gnancy; 25 weeks gestation of ; Diabetes mellitus screening; H/O oligohydramnios in prior , currently Start: 07-15-2024 End: 07-15-2024 ambulatory RADHA SNEHA Not Available Start: 06-17-2024 End: 06-17-2024 ambulatory CHAO PANG Not Available Start: 05-21-2024 End: 05-21-2024 ambulatory RADHA SNEHA Not Available Start: 04-23-2024 End: 04-23-2024 ambulatory RADHA SNEHA Not Available Start: 04-22-2024 ambulatory SENIOR STORAGE ADMINISTRATOR Yola Metz ity:BERTHA [place] Start: 03-19-2024 End: 03-19-2024 ambulatory RADHA SNEHA Not Available Start: 11-12-2023 End: 11-12-2023 ambulatory RADHA SNEHA Not Available Start: 05-07-2023 ambulatory SENIOR STORAGE ADMINISTRATOR Yola Ivey y:FT FM Flynn Start: 04-24-2022 End: 04-24-2022 Off-Site Ana Gudimella [facility] Start: 03-22-2022 End: 03-22-2022 Off-Site Ana Gudimella [facility] Start: 11-09-[address] DOCTOR BURGOS Facility :[facility] Start: 11-06-2021 End: 11-06-[address] RADHA HOOVER Facility:[facility] Start: 11-03-2021 End: 11-03-[address] RADHA HOOVER Facility:[facility] Start: 11-02-2021 End: 11-02-[address] CHELITA CARDENAS Facility:[facility] Start: 10-30-2021 End: 10-30-[address] PEG LACEY Facility:[facility] Start: 10-26-2021 End: 10-26-[address] CHELITA CARDENAS Facility:[facility] Start: 10-24-2021 End: 10-25-2021 ambulatory AUGIE PEDROZA [facility] Start: 10-19-2021 End: 10-19-[address] PEG LACEY Facility:[facility] Start: 10-12-2021 End: 10-12-[address] PEG LACEY Facility:[facility] Start: 10-06-2021 End: 10-06-[address] RADHA HOOVER Facility:[facility] Start: 10-05-2021 End: 10-06-2021 ambulatory ELVIA Elena [facility] Start: 10-05-2021 End: 10-06-2021 Subsequent hospital [...] Date Procedure Procedure Detail Performing Clinician Start: 07-15-2024 Urnls dip stick/tabl et rgnt non-auto w/o micrscp Radha Hoover DO Work Phone: Start: 10-05-2021 Antibody screen Elvia nielsen DO Work Phone: Start: 10-05-2021 Assay of free thyroxine Ellis Colmenares DO Work Phone: Start: 10-05-2021 Blood typing serolog ic abo Ellis Colmenares DO Work Phone: Plan of Treatment Date Care Activity Detail Author Start: 12-03-2027 DTaP/Tdap/Td vaccine (2 - Td or Tdap) DTaP/Tdap/Td vaccine (2 - Td or Tdap) [facility] Start: 08-04-2024 End: 08-04-2024 Patient encounter procedure 08/04/2024 11:30 AM EDT Routine [facility] [address] [place] [address] Radha Hoover, DO [address] [place] [address] [facility] Start: 07-15-2024 End: 07-15-2025 CBC panel - Blood by Automated count CBC Lab Routine Diabetes mellitus screening Expected: 07/15/2024 (Approximate), Expires: 07/15/2025 [facility] Work Phone: Comment on above: Expected: 07/15/2024 (Approximate), Expires: 07/15/2025 Start: 07-15-2024 End: 07-15-2025 Measurement of glucose 1 hour after glucose challenge for glucose tolerance test Glucose tolerance, 1 hour Lab Routine Diabetes mellitus screening Expected: 07/15/2024 (Approximate), Expires: 07/15/2025 [facility] Comment on above: Expected: 07/15/2024 (Approximate), Expires: 07/15/2025 Start: 07-15-2024 End: 07-15-2025 US for US OB SCAN FOR GROWTH Imaging Routine H/O oligohydramnios in prior , currently Expected: 07/15/2024 (Approximate), Expires: 07/15/2025 [facility] Comment on above: Expected: 07/15/2024 (Approximate), Expires: 07/15/2025 Start: 07-15-2024 End: 07-15-2024 Patient encounter procedure 07/15/2024 10:50 AM EDT Routine [facility] [address] [place] [id number] Radha Hoover, DO [address] [place] [address] Arrived [facility] Comment on above: Arrived Start: 06-14-2024 Influenza vaccination Influenza Vacc ine (#1) [facility] Start: 08-10-2021 COVID-19 Vaccine (3 - Booster for Pfizer series) COVID-19 Vaccine (3 - Booster for Pfizer series) [facility] Start: 06-14-2021 Influenza vaccination Flu vaccine (# 1) [facility] Start: 2019 Screening for malign ant neoplasm of cervix [facility] Start: 2010 Screening for malign ant neoplasm of cervix Pap smear [facility] Start: 2004 HIV screening HIV screen [facility] Start: 1990 Varicella vaccine (1 of 2 - 2-dose childhood series) Varicella vaccine (1 of 2 - 2-dose childhood series) [facility] Start: 1989 Hepatitis C screening Hepatitis C sc reen [facility] End: 10-06-2021 MISCELLANEOUS TESTING MISCELLANEOUS TESTING Lab STAT Once for 1 Occurrences starting 10/06/2021 until 10/06/2021 [employer] Work Phone: Comment on above: Once for 1 Occurrenc es starting 10/06/2021 until 10/06/2021 Nonrebreather mask oxygen Nonrebreather mask oxygen Respiratory Care Routine As directed - RT (PRN) until discontinued starting 10/05/2021 [employer] Phone: Comment on above: As directed - RT (CO N) until discontinued starting 10/05/2021 End: 10-05-2021 SJOGRENS SYNDROME-A EXTRACTABLE NUCLEAR ANTIBODY [employer] Phone: Comment on above: One Time for 1 Occur rences starting 10/05/2021 until 10/05/2021 End: 10-05-2021 SJOGRENS SYNDROME-B EXTRACTABLE NUCLEAR ANTIBODY [employer] Phone: Comment on above: One Time for 1 Occur rences starting 10/05/2021 until 10/05/2021 Immunizations Immunization Date Immunization Notes Care Provider Giovany hargrove 10-19-2021 influenza virus vaccine, unspecified formulation Ana Gudimella [facility] 10-19-2021 tetanus toxoid, redu garry diphtheria toxoid, and acellular pertussis vaccine, adsorbed Ana Gudimella [facility] 02-08-2021 SARS-CoV-2 (COVID-19 ) mRNA BNT-162b2 vax Ana Gudimella [facility] 01-18-2021 SARS-CoV-2 (COVID-19 ) mRNA BNT-162b2 vax Ana Gudimella [facility] 08-26-2020 influenza, unspecifi ed formulation Ana Gudimella [facility] [place] Payers Date Payer Category Payer Unknown [employer] [id number] 2023-Present [address] [place] [address] [id number] 2019 Unknown [id number].3.67 8671.315 1989 Unknown [id number] 2.16.840.1.452371.3.579.2.175 1989 Unknown [id number] 2.16.840.1.498714.3.579.2.175 1989 Unknown [id number] 2.16.840.1.994485.3.579.2.593 1989 Unknown [id number] 2.16.840.1.056341.3.579.2.593 1989 Unknown [id number] 2.16.840.1.717583.3.579.2.593 1989 Unknown [id number] 2.16.840.1.909874.3.579.2.593 1989 Unknown [id number] 2.16.840.1.083732.3.579.2.593 1989 Unknown [id number] 2.16.840.1.321233.3.579.2.593 1989 Unknown [id number] 2.16.840.1.071676.3.579.2.593 1989 Unknown [id number] 2.16.840.1.215577.3.579.2.593 1989 Unknown [id number] 2.16.840.1.907997.3.579.2.593 1989 Unknown [id number] 2.16.840.1.742711.3.579.2.593 1989 Unknown [id number] 2.16.840.1.899956.3.579.2.593 1989 Unknown [id number] 2.16.840.1.615669.3.579.2.593 1989 Unknown [id number] 2.16.840.1.396737.3.579.2.593 1989 Unknown [id number] 2.16.840.1.247711.3.579.2.593 1989 Unknown [id number] 2.16840.1.045932.3.579.2.593 1989 Unknown [id number] 2.16.840.1.989132.3.579.2.727 1989 Unknown [id number] 2.16840.1.740985.3.579.2.727 1989 Unknown [id number] 2.16840.1.953197.3.579.2.1259 1989 Unknown [id number] 2.16840.1.130124.3.579.2.9 1989 Unknown [id number] 2.16.840.1.922889.3.579.2.9 1989 Unknown [id number] 2.16840.1.493223.3.579.2.1259 1989 Unknown [id number] 2.16840.1.664096.3.579.2.1259 1989 Unknown [id number] 2.16840.1.412719.3.579.2.1259 1959 Self-pay Unknown [id number] 2.16840.1.535592.3.579.2.593 Social History Date Type Detail Facility Start: 10-05-2021 End: 03-19-2024 Tobacco smoking status [facility] Never smoked tobacco [employer] Work Phone: Start: 10-05-2021 End: 03-19-2024 Tobacco use and exposure Smokeless tobacco non-user [employer] Work Phone: Start: 10-05-2021 End: 07-15-2024 Alcohol intake Ex-drinker (finding) [employer] Work Phone: Start: 03-07-2021 [facility] Work Phone: Start: 1990 [facility] Work Phone: Tobacco smoking status Never [facility] Start: 03-19-2024 Sex Assigned At Female F [facility] Start: 03-19-2024 History of Social function [facility] Functional Status Date Assessment Result Facility 04-24-2022 Functional Status Telehealth Patient [facility] History of Present illness Narrative 07-15-2024 Veronique HolmSOLEDAD - 07/15/2024 10:50 AM EDT Note Date & Type Note Facility 07-15-2024 History of Presen t illness Narrative Reason for Appointment: Patient ID: Carla North is a 34 y.o. female who presents for Routine Visit Patient presents today for Return OB appointment. MEDICATIONS Current Outpatient Medications Medication Instructions BABY ASPIRIN PO 81 mg, Oral ondansetron (ZOFRAN) 4 mg, Oral, 3 times daily PRN MV-Min-Fe Fum-FA-DHA ( 1 PO) Oral ALLERGIES No Known Allergies PROBLEMS Active Ambulatory Problems Diagnosis Date Noted No Active Ambulatory Problems Resolved Ambulatory Problems Diagnosis Date Noted No Resolved Ambulatory Problems No Additional Past Medical History HISTORY PAST MEDICAL HISTORY SOCIAL HISTORY No past medical history on file. Social History Tobacco Use Smoking status: Never Smokeless tobacco: Never Substance Use Topics Alcohol use: Not Currently Drug use: Never FAMILY HISTORY No family history on file. SURGICAL HISTORY No past surgical history on file. REVIEW OF SYSTEMS Review of Systems: Review of Systems Constitutional: Negative. HENT: Negative. Eyes: Negative. Respiratory: Negative. Cardiovascular: Negative. Gastrointestinal: Negative. Genitourinary: Negative. Musculoskeletal: Negative. Skin: Negative. Neurological: Negative. All other systems reviewed and are negative. Hematological: Negative. Endocrine: Negative. Allergic/Immunologic: Negative. OBJECTIVE Objective: Physical Exam Constitutional: Appearance: Normal appearance. She is well-developed. Cardiovascular: Rate and Rhythm: Normal rate and regular rhythm. Pulmonary: Effort: Pulmonary effort is normal. Breath sounds: Normal breath sounds. Abdominal: General: Bowel sounds are normal. There is no distension. Palpations: Abdomen is soft. Tenderness: There is no abdominal tenderness. There is no guarding or rebound. Musculoskeletal: General: No swelling. Normal range of motion. Right lower leg: No edema. Left lower leg: No edema. Neurological: Mental Status: She is alert and oriented to person, place, and time. Skin: General: Skin is warm and dry. Psychiatric: Mood and Affect: Mood normal. Behavior: Behavior normal. Vitals and nursing note reviewed. Exam conducted with a boiler tube reamer present. Vitals: Estimated body mass index is 31.46 kg/m as calculated from the following: Height as of 24: 5' 2 . Weight as of this encounter: 172 lb. BP: 110/70 Patient's last menstrual period was 01/17/2024. ASSESSMENT & PLAN ICD-10-CM 1. Second trimester Z34.92 POCT urinalysis dipstick manually resulted 2. 25 weeks gestation of Z3A.25 POCT urinalysis dipstick manually resulted 3. Diabetes mellitus screening Z13.1 CBC Glucose tolerance, 1 hour 4. H/O oligohydramnios in prior , currently O09.299 US OB SCAN FOR GROWTH Return OB: Patient presents today for a routine obstetrics appointment. Patient is currently 25w5d . Patient states she is doing well but has complaints of being tired due to current . Patient has verbalizes frequent movement. labor precautions was discussed/given and patient was instructed to perform kick counts three times a day. Orders Placed This Encounter Procedures US OB SCAN FOR GROWTH CBC Glucose tolerance, 1 hour POCT urinalysis dipstick manually resulted Follow Up: Patient is to return to office in 3 week for routine OB appointment. Documented by Veronique Holm LPN on behalf of: Radha Hoover DO documented in this encounter [facility] Hospital Discharge instructions 03-22-2022 Note Date & Type Note Facility 03-22-2022 Hospital Discharg e instructions Follow Up Care 03/22/2022 14:50:25 With:Maria Antonia VIVAS, LINNETTE Perez, MED Address: [address] [place] [phone] Business (1) When:Within 3 Month(s) [facility] Hospital Discharge instructions 03-14-2022 Note Date & Type Note Facility 03-14-2022 Hospital Discharg e instructions Follow Up Care 03/14/2022 16:26:08 With:Ana Em MD, FAM, MED Address: [address] [place] [phone] Business (1) When:Within 1 Month(s) [facility] Hospital Discharge instructions 10-06-2021 Instructions Note Date [...] Where can you learn more? Go to [email or web address] and sign in to your [employer] - is now [employer] account. Enter A006 in the Search Health Information box to learn more about Learning About Low Amniotic Fluid. If you do not have an account, please click on the Sign Up Now link. Current as of: March 29, 2021 Content Version: 13.1 [employer]. Care instructions adapted under license by [employer]. If you have questions about a medical condition or this instruction, always ask your healthcare professional. [employer] disclaims any warranty or liability for your use of this information. documented in this encounter [employer] Work Phone: History of Present illness Narrative 10-06-2021 Daria Evans, DO - 10/06/2021 1:35 PM Ammon Evans, DO - 10/06/2021 10:06 AM Kandi Yarbrough RN - 10/06/2021 7:00 AM Zunilda Colmenares, DO - 10/06/2021 5:35 AM EST Note [...] will get second dose of celestone at [facility]. Follow up with MFM on Saturday. Follow up with peds cardio in 1-2 weeks. Follow up with Dr. Hoover in one week. Attending in agreement with plan of care. Daria Evans DO CUT AND PRINT MACHINE OPERATOR Resident, PGY3 [place], [place] 10/06/2021, 1:35 PM Maternal Medicine Ultrasound [...] to see the patient. Follow up with MFM outpatient on Tuesday 10/09 Dr. Guevara updated, OB Residents updated, RN updated. Daria Evans DO Salvage Grinder Resident 10/06/2021, 10:06 AM Pt c/o headache related to lack of sleep or hunger, tylenol given CUT AND PRINT MACHINE OPERATOR PROGRESS NOTE Carla North is a 31 [...] # 1.73 1.10 - 3.70 k/uL Absolute Rains # 0.52 0.10 - 1.20 k/uL Absolute Eos # 0.05 0.00 - 0.44 k/uL Basophils Absolute <0.03 0.00 - 0.20 k/uL Absolute Immature Granulocyte 0.03 0.00 - 0.30 k/uL WBC Morphology NOT REPORTED RBC Morphology NOT REPORTED Platelet Estimate NOT REPORTED TYPE AND SCREEN Collection Time: 10/05/21 8:21 PM Result Value Ref Range Expiration Date 10/08/2021,2359 Arm Band Number [id number] ABO/Rh O POSITIVE Antibody Screen NEGATIVE TSH [...] Diet - MFM ultrasound 10/05 demonstrates BPP 8/8 with CHERELLE 4cm, plan for repeat MFM [...] Will update attending physician. 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 10/06/2021, 5:35 AM documented in this encounter [facility] [employer] Work Phone: Evaluation + Plan note Note Date & Type Note Facility Evaluation + Plan note Future Appointments Appointment Date:04/24/2022 01:20:00 PM Scheduled Provider:Ana Em MD Location:[facility] Appointment Type: Video Visit [facility] [place] Evaluation note Note Date & Type Note [...] episode of care documented in this encounter [employer] Phone: Evaluation note Note Date & Type Note Facility Evaluation note Diagnosis Second trimester state, incidental 25 weeks gestation of Diabetes mellitus screening Screening for diabetes mellitus H/O oligohydramnios in prior , currently documented in this encounter [facility] Healthcare Hospital course Narrative Note Date & Type Note Facility Hospital course Narrative No data available for this section [facility] [employer] Progress note Note Date & Type Note Facility Progress note No data available for this section [facility] [place] Advance Directives Latest Code Status on File Code Status Date Activated Date Inactivated Comments Full Code 10/05/2021 7:44 PM Summary Purpose Family History No Family History Records FoundNo Family History Records FoundNo Family History Records FoundNo Family History Records Found Additional Source Comments Reason for Visit (unrecogniz ed section and content) Reason Comments Other oligo, arrhyth arelis from MFM Reason Comments Routine Visit Scheduled Active and Recently Administ ered Medications [...] 0917 (Given - Provid er: Juliana Hamm, RN) sertraline (ZOLOFT) tablet 25 mg 25 mg, Oral, DAILY, First dose on Sat10/06/21 at 0900 0917 (Given - Provid er: Juliana Hamm RN) PRN Medication Order 10/04/2021 10/05/2021 10/06/2021 acetaminophen (TYLENOL) tablet 1,000 mg 1,000 mg, Oral, EVERY 6 HOURS PRN, Pain Mild (1-3), Pain Mild (1-3) or Fever greater than 100.5 F (38 C), Starting on Azucena 10/05/21 at 1941, Maximum dose of acetaminophen is 4000 mg from all sources in 24 hours. 0659 (Given - Provid er: Radha Yarbrough RN) ondansetron (ZOFRAN) injection 4 mg(Linked Group 1) 4 mg, IntraVENous, EVERY 6 HOURS PRN, Nausea, Vomiting, Starting on Azucena 10/05/21 at 1941, Administer if oral route cannot be used. ondansetron (ZOFRAN-ODT) disintegrating tablet 4 mg(Linked Group 1) 4 mg, Oral, EVERY 8 HOURS PRN, Nausea, Vomiting, Starting on Azucena 10/05/21 at 1941 Linked Groups Order Group 1: ondansetron (ZOFRAN-ODT) disintegrating tablet 4 mgJump to med 4 mg, Oral, EVERY 8 HOURS PRN, Nausea, Vomiting, Starting on Azucena 10/05/21 at 1941 Or ondansetron (ZOFRAN) injection 4 mgJump to med 4 mg, IntraVENous, EVERY 6 HOURS PRN, Nausea, Vomiting, Starting on Azucena 10/05/21 at 1941
Administer if oral route cannot be used.
Care Teams (unrecognized sec tion and content) Mechanical Reliability Engineer Relationship Specialty Start Date End Date Augie Pedroza MD [address] [place] [address] PCP - General Family Medicine 10/05/21 Mechanical Reliability Engineer Relationship Specialty Start Date End Date Yola Camarena MD [address] [place], [place] [id number] PCP - General 11/11/23 Mechanical Reliability Engineer Relationship Specialty Start Date End Date Yola Camarena MD [address] [place] [address] PCP - General 11/11/23 INFORMATION SOURCE (unrecogn ized section and content) DATE CREATED AUTHOR 11/08/2021 [facility] DATE CREATED AUTHOR AUTHOR'S ORGANIZ ATION 01/22/[address] [facility] DATE CREATED AUTHOR AUTHOR'S ORGANIZ ATION 04/28/2024 [facility] DATE CREATED AUTHOR AUTHOR'S ORGANIZ ATION 07/17/2024 [facility] FOR RECORDS PERTAINING TO PATIENTS [...] BE BASED ON THE PRIMARY CLINICAL RECORDS. [employer] provides no warranty or guarantee of the accuracy or completeness of information in this document.
[2024-08-03 10:40] LABS: Basophils Percent Auto 0.4 % (0.2-2.0); Eosinophils Absolute Auto 0.2 10^3/uL (0.0-0.7); Eosinophils Percent Auto 2.6 % (0.9-7.0); Hematocrit 33.2 % (36.0-48.0); Hemoglobin 10.9 g/dL (12.0-16.0); Immature Granulocytes Abs Auto 0.04 10^3/uL (0.00-0.03); Immature Granulocytes Pct Auto 0.4 % (0.0-0.5); Lymphocytes Absolute Auto 1.4 10^3/uL (1.2-3.8); Lymphocytes Percent Auto 15.2 % (20.5-60.0); Mean Corpuscular HGB Conc 32.8 g/dL (29.9-35.2); Mean Corpuscular Hemoglobin 30.9 pg (26.7-34.0); Mean Corpuscular Volume 94.1 fL (81.0-99.0); Mean Platelet Volume 10.3 fL (9.5-13.5); Monocytes Absolute Auto 0.6 10^3/uL (0.3-0.8); Monocytes Percent Auto 6.3 % (1.7-12.0); Neutrophils Absolute Auto 6.9 10^3/uL (1.4-6.5); Neutrophils Percent Auto 75.1 % (43.0-75.0); Platelet Count 271 10^3/uL (150-450); Red Blood Count 3.53 10^6/uL (4.20-5.40); Red Cell Distribution Width 13.3 % (11.0-15.0); White Blood Count 9.3 10^3/uL (4.0-11.0)
[2024-08-03 11:11] LABS: Glucose 1 Hour 106 mg/dL (<130)
== END 2024-08-03 08:44 | disposition home or self-care (01) ==
LOC: LAB 08:45
PROVIDERS: PCP Nurse Practitioner; Visit Provider Obstetrics & Gynecology
DX: Z34.93 Encounter for supervision of normal pregnancy, unspecified, third trimester (principal); Z13.1 Encounter for screening for diabetes mellitus
CPT/HCPCS: 36415; 82950; 85025

== ENCOUNTER 2024-08-20 08:34 | Outpatient (OUT) | payer OTHER, SELFPAY ==
--- NOTE | 2024-08-20 08:37 | US_ITS ---
[address] [address] Patient Name: JUAN FRANCISCO MENDOZA MRN: [id number] date: 1990 Sex: F Assigned Patient Location: [facility] Current Patient Location: Accession/Order Number: [id number] Exam Date: 08/20/2024 08:37 Report Date: 08/21/2024 05:33 At the request of: RADHA BAIG Procedure: US OB growth EXAMINATION: US OB growth HISTORY: ADVANCED MATERNAL AGE COMPARISON: Ultrasound OB growth 07/21/2024 FINDINGS: Heart Rate: 138 bpm Amniotic Fluid Volume: 9.5 cm; normal range. Number: 1 Position: CEPHALIC BIOMETRY: BPD: 7.91 cm; 31 weeks 5 days; 66.90 % HC: 29.01 cm; 32 weeks 0 days; 43.60 % AC: 28.24 cm; 32 weeks 2 days; 84.50 % FL: 5.82 cm; 30 weeks 3 days; 24.30 % EFW: 1870 g; 65.10 % FL/AC: 20.61 FL/BPD: 73.58 HC/AC: 1.03 GESTATIONAL AGE: Age by EDC: 30 weeks 6 days ÁLVARO by EDC: 2024-10-23 Age by US: 31 weeks 4 days ÁLVARO by US: 2024-10-18 US/US OB growth IMPRESSION: 1. Single live intrauterine with growth detailed above. Electronically authenticated by: FERN CALZADA Date: 08/21/2024 05:33
== END 2024-08-20 08:35 | disposition home or self-care (01) ==
LOC: NOMS 08:35
PROVIDERS: PCP Nurse Practitioner; Visit Provider Obstetrics & Gynecology
DX: O09.523 Supervision of elderly multigravida, third trimester (principal); Z3A.30 30 weeks gestation of pregnancy
CPT/HCPCS: 76816

== ENCOUNTER 2024-08-22 13:58 | Outpatient (OUT) | payer OTHER, SELFPAY ==
--- NOTE | 2024-08-22 13:59 | US_ITS ---
[address] [address] Patient Name: JUAN FRANCISCO MENDOZA MRN: [id number] date: 1990 Sex: F Assigned Patient Location: US Current Patient Location: Accession/Order Number: [id number] Exam Date: 08/22/2024 14:04 Report Date: 08/24/2024 08:02 At the request of: RADHA BAIG Procedure: US OB amniotic fluid vol EXAMINATION: US OB amniotic fluid vol HISTORY: LOW HEMOGLOBIN D64.9 COMPARISON: No relevant comparison available. FINDINGS: Amniotic fluid index 10.91 cm, normal Heart rate: 141 beats minute Clinical age: 31 weeks 1 day Clinical ÁLVARO: 10/23/2024 US/US OB amniotic fluid vol IMPRESSION: Normal amniotic fluid index Electronically authenticated by: CHELITA CARDENAS Date: 08/24/2024 08:02
--- OUTSIDE RECORDS SUMMARY | 2024-08-22 14:01 | XMS_ITS | CCD ---
Author Organization [facility] Care Team Providers Care Hand Packager Name Role Phone Augie Pedroza MD Primary Care Provider [phone] ELVIA DONIS Admitting Unavailable ELVIA DONIS Attending [...] Unavailable ZIEBER, DR FERN Andrade Consulting Unavailable PLYMOUTH, DR CHELITA Melendez Consulting Unavailable MISC, DR DOSHI Primary Care Unavailable SNEHA, DR GARCIA Attending Unavailable SNEHA, DR GARCIA Admitting Unavailable SNEHA, DR GARCIA Consulting Unavailable KARASIK, DR RUVALCABA Consulting Unavailable KARASIK, DR RUVALCABA Attending Unavailable KARASIK, DR RUVALCABA Admitting Unavailable MISC, DR DOSHI Primary Care Unavailable SNEHA, DR GARCIA Consulting Unavailable ZIEBER, DR FERN Andrade Consulting Unavailable Ana Em Primary Care Physician [phone] TOSHA Camarena Attending Unavailable Yola Camarena MD Primary Care Provider RADHA HOOVER Attending Unavailable SNEHA, RADHA Attending Unavailable SNEHA, RADHA Attending Unavailable CHITRA PANG Attending Unavailable SNEHA, RADHA Attending Unavailable SNEHA, RADHA Attending Unavailable SNEHA, RADHA Attending Unavailable Medications Current Medications Medication [...] aspirin 81 mg delayed release oral tablet (12 sources) Platelet Aggregation Inhibitor, Nonsteroidal Anti-inflammatory Drug [...] q24hr, # 90 tab(s), Refills(s) 2, Pharmacy: [facility], 157.4, cm, 04/24/22 13:18:00 EDT, Height/Length Dosing, 72, kg, 03/22/22 14:14:00 EDT, Weight Dosing Start Date: 04/24/22 Status: Ordered Start: 03-22-2022 take 1 tablet by myah th every twenty-four hours Wellbutrin XL 150 mg/24 hours Tab-ER 150 mg = 1 tab(s), Oral, q24hr, # 30 tab(s), Refills(s) 0, Pharmacy: [facility], 157.4, cm, 03/22/22 14:14:00 EDT, Height/Length Dosing, 72, kg, 03/22/22 14:14:00 EDT, Weight Dosing Start Date: 03/22/22 Status: Ordered ondansetron 4 mg oral tablet (11 sources) Serotonin-3 Receptor Antagonist Start: 04-18-2024 take 1 tablet by mouth three times daily as needed ondansetron (Zofran) 4 MG tablet Take 4 mg by mouth 3 (three) times a day as needed 04/18/2024 Active Start: 09-06-2021 ondansetron (Z OFRAN-ODT) 4 MG disintegrating tablet ondansetron (ZOFRAN-ODT) disintegrating tablet 4 mg (1 source) Start: 10-05-2021 ondansetron (ZOFRAN-ODT) disintegrating tablet 4 mg polysaccharide iron complex 391 mg oral capsule (6 sources) Start: 08-03-2024 End: 09-02-2024 take 1 capsule by mouth once daily iron polysaccharides (ProFe) 391.3 (180 Fe) MG capsule Indications: Low hemoglobin Take 1 capsule (391.3 mg) by mouth Daily 30 capsule 11 08/03/2024 09/02/2024 Active MV-Min-Fe Fum-FA-DHA ( 1 PO) (10 sources) MV-Min- Fe Fum-FA-DHA ( 1 PO) [...] hyperactivity disorder, unspecified type] Onset: 04-24-2022 Chronic Deficiency and other anemia (2 sources) Hemoglobin low; Translations: [Anemia, unspecified] 08-20-2024 Episodic Malposition; malpresentation (2 sources) Breech presentation; Translations: [...] NA/UNS] Onset: 10-06-2021 Episodic Other complications of (4 sources) H/O: ; Translations: [Supervision of with other poor reproductive or obstetric history, unspecified trimester] 07-15-2024 Episodic Other complications of (4 sources) Multigravida of advanced maternal age; Translations: [Supervision of elderly multigravida, third trimester] 08-04-2024 Episodic Other nutritional; endocrine; and metabolic disorders (1 source) Overweight in adulthood with body mass index of 25 or more but less than 30; Translations: [Body mass index (BMI) 29.0-29.9, adult] Onset: 03-22-2022 Episodic Other conditions (2 sources) exposure to drug; Translations: [ affected by maternal noxious substance, unspecified] Onset: 10-05-2021 Episodic Other and delivery including normal (10 sources) Encounter for supervision of normal , [...] [25 weeks gestation of ] 07-15-2024 Episodic Residual codes; unclassified (2 sources) Gestation period, 28 weeks; Translations: [28 weeks gestation of ] 08-04-2024 Episodic Residual codes; unclassified (2 sources) Gestation period, 30 weeks; Translations: [30 weeks gestation of ] 08-20-2024 Episodic Unclassified (1 source) Patient encounter status [...] Range Facility Urinalysis macro (dipstick) panel (U)on 08-20-2024 Bilirubin, UA Negative Negative - 4(70) +++ mg/dL [facility] Blood, UA Negative Negative - 50 Onur/mcL [facility] Clarity, UA Clear [facility] Color, UA Yellow [facility] Glucose, UA Negative Negative - 2000(110) ++++ mg/dL [facility] Interpretation and review of laboratory results Abnormal [facility] Ketones, UA Negative Negative - 160(16) ++++ mg/dL [facility] Leukocytes, UA Positive Negative - 500+++ Hernan/mcL [facility] Comment on above: small Nitrite, UA Negative Negative - Positive [facility] pH, UA 7 5 - 9 [facility] Protein, UA Negative Negative - 1999(20) ++++ mg/dL [facility] Spec Grav, UA 1.015 1 - 1.03 [facility] Urobilinogen, UA 0.2 0.2 - 12 mg/dL [facility] Urinalysis macro (dipstick) panel (U)on 08-04-2024 Bilirubin, UA Negative Negative - 4(70) +++ mg/dL [facility] Blood, UA Negative Negative - 50 Onur/mcL [facility] Clarity, UA Clear [facility] Color, UA Yellow [facility] Glucose, UA Negative Negative - 1999(110) ++++ mg/dL [facility] Interpretation and review of laboratory results Normal [facility] Ketones, UA Negative Negative - 160(16) ++++ mg/dL [facility] Leukocytes, UA Negative Negative - 500+++ Hernan/mcL [facility] Nitrite, UA Negative Negative - Positive [facility] pH, UA 6.5 5 - 9 [facility] Protein, UA Negative Negative - 1999(20) ++++ mg/dL [facility] Spec Grav, UA 1.025 1 - 1.03 [facility] Urobilinogen, UA 0.2 0.2 - 12 mg/dL [facility] ALL CBC WITH AUTO DIFFon BASOPHILS ABSOLUTE AUTO 0 [facility] Basophils/100 WBC (Bld) 0.4 % 0.2 - 2.0 % [facility] Eosinophils/100 WBC (Bld) 2.6 % 0.9 - 7.0 % [facility] Erythrocyte distribution width (RBC) [Ratio] 13.3 % 11.0 - 15.0 % [facility] Hematocrit (Bld) [Volume fraction] 33.2 % Low 36.0 - 48.0 % [facility] Hemoglobin (Bld) [Mass/Vol] 10.9 g/dL Low 12.0 - 16.0 g/dL [facility] IMMATURE GRANULOCYTES ABS AUTO 0.04 High [facility] Immature granulocytes/100 WBC (Bld) 0.4 % 0.0 - 0.5 % [facility] Interpretation and review of laboratory results Abnormal [facility] LYMPHOCYTES ABSOLUTE AUTO 1.4 [facility] Lymphocytes/100 WBC (Bld) 15.2 % Low 20.5 - 60.0 % [facility] MCH (RBC) [Entitic mass] 30.9 pg 26.7 - 34.0 pg [facility] MCHC (RBC) [Mass/Vol] 32.8 g/dL 29.9 - 35.2 g/dL [facility] MCV (RBC) [Entitic vol] 94.1 fL 81.0 - 99.0 fL [facility] MONOCYTES ABSOLUTE AUTO 0.6 [facility] Monocytes/100 WBC (Bld) 6.3 % 1.7 - 12.0 % [facility] NEUTROPHILS ABSOLUTE AUTO 6.9 High [facility] Neutrophils/100 WBC (Bld) 75.1 % High 43.0 - 75.0 % [facility] Platelet mean volume (Bld) [Entitic vol] 10.3 fL 9.5 - 13.5 fL [facility] TBH EO # 0.2 [facility] PLT 271 [facility] RBC 3.53 Low [facility] WBC 9.3 [facility] Urinalysis macro (dipstick) panel (U)on 07-15-2024 Bilirubin, UA Negative Negative - 4(70) +++ mg/dL [facility] Blood, UA Negative Negative - 50 Onur/mcL [facility] Clarity, UA Clear [facility] Color, UA Yellow [facility] Glucose, UA Negative Negative - 2000(110) ++++ mg/dL [facility] Interpretation and review of laboratory results Abnormal [facility] Ketones, UA Negative Negative - 160(16) ++++ mg/dL [facility] Leukocytes, UA Trace Negative - 500+++ Hernan/mcL [facility] Nitrite, UA Negative Negative - Positive [facility] pH, UA 7.0 5 - 9 [facility] Protein, UA Negative Negative - 1999(20) ++++ mg/dL [facility] Spec Grav, UA 1.020 1 - 1.03 [facility] Urobilinogen, UA 0.2 0.2 - 12 mg/dL [facility] RAD - Ultrasound Reporton RAD - Ultrasound Report [id number] Normal [facility] GROUP B STREP CULTUREon 10-15 S. agalactiae Ag Ql (Unsp spec) Culture Observations: NEGATIVE FOR GROUP B STREPTOCOCCUS. Normal [facility] Comment on above: Performed By: #### R PRQ #### [facility] [address] [place] [address] Nancy Piper US PREG BIOPHY W NON [...] by: CHELITA CARDENAS Date: 2021-11-02 13:37 Normal [facility] [place] [facility] US PREG BIOPHY W NON [...] by: CHELITA CARDENAS Date: 2021-10-26 14:34 Normal [facility] [place] [facility] US PREG BIOPHY W NON [...] by: FERN CALZADA Date: 2021-10-19 14:42 Normal [facility] [place] [facility] US PREG BIOPHY W NON [...] by: FERN CALZADA Date: 2021-10-12 13:32 Normal [facility] 10-09-2021 Send Out Report FORWARD TO [facility] Comment on above: Performed By: #### C MIS #### [address] [phone] [place] Hand: Mark Hernadez MD [facility] 10-09-2021 SSA <0.3 Normal <7.0 [facility] Comment on above: Result Comment: Reference Range: <7.0 Negative 7.0-10.0 Equivocal >10.0 Positive Performed By: #### C DP, FT4, TSH, SSARO, SSBLA #### [address] [phone] [place] Hand: Mark Hernadez MD [facility] 10-09-2021 SSB <0.3 Normal <7.0 [facility] Comment on above: Result Comment: Reference Range: <7.0 Negative 7.0-10.0 Equivocal >10.0 Positive Performed By: #### C DP, FT4, TSH, SSARO, SSBLA #### [address] [phone] [place]: Mark Hernadez MD [facility] 10-06-2021 Test Name [facility] Comment on above: Performed By: #### C MIS #### [address] [place] [address] [place]: Mark Hernadez MD CBC WITH AUTO DIFFERENTIALon 10-05-2021 Absolute Eos # 0.05 [facility] th Absolute Immature Granulocyte 0.03 [facility] Absolute Lymph # 1.73 [facility] He alth Absolute [place] # 0.52 [facility] Hea lth Basophils (Bld) [#/Vol] 10*3/uL [facility] Basophils/100 WBC (Bld) 0 % 0 - 2 % [facility] Differential Type NOT REPORTED [facility] hi5 Eosinophils/100 WBC (Bld) 1 % 1 - 4 % [facility] Hematocrit (Bld) [Volume fraction] 30.1 % Low 36.3 - 47.1 % [facility] Hemoglobin.gastrointe stinal spec 1 Ql (Stl) 10.3 g/dL Low 11.9 - 15.1 g/dL [facility] Immature granulocytes/100 WBC (Bld) 0 % 0 [facility] Interpretation and review of laboratory results Abnormal [facility] Lymphocytes/100 WBC (Bld) 26 % 24 - 43 % [facility] MCH (RBC) [Entitic mass] 31.3 pg 25.2 - 33.5 pg [facility] MCHC (RBC) [Mass/Vol] 34.2 g/dL 28.4 - 34.8 g/dL [facility] MCV (RBC) [Entitic vol] 91.5 fL 82.6 - 102.9 fL [facility] Monocytes/100 WBC (Bld) 8 % 3 - 12 % [facility] NRBC Automated 0.0 0.0 per 100 WBC [facility] Platelet distribution width (Bld) [Ratio] 13.6 % 11.8 - 14.4 % [facility] Platelet Estimate NOT REPORTED [facility] Platelet mean volume (Bld) [Entitic vol] 9.8 fL 8.1 - 13.5 fL [facility] Platelets (Bld) [#/Vol] 265 10*3/uL [facility] RBC (Bld) [#/Vol] 3.29 10*6/uL Low 3.95 - 5.1 1 m/uL [facility] RBC (Bld) [#/Vol] NOT REPORTED [facility] Segmented neutrophils/100 WBC (Bld) 65 % 36 - 65 % [facility] Segs Absolute 4.35 [facility] WBC (Bld) [#/Vol] 6.7 10*3/uL [facility] WBC (Bld) [#/Vol] NOT REPORTED [facility] CBC with Diffon 10-05-2021 Abs. Basophil <0.03 Normal 0.00-0.20 [facility] Comment on above: Performed By: #### C DP, FT4, TSH, SSARO, SSBLA #### [address] [address] [place]: Mark Hernadez MD Abs.Imm.Granulocyte 0.03 k/uL Normal 0.00-0.30 [facility] Comment on above: Performed By: #### C DP, FT4, TSH, SSARO, SSBLA #### [address] [address] [place] Hand: Mark Hernadez MD Abs.Neutrophil (Seg) 4.35 k/uL Normal 1.50-8.10 [facility] Comment on above: Performed By: #### C DP, FT4, TSH, SSARO, SSBLA #### [address] [address] [place]: Mark Hernadez MD Basophils/100 WBC (Bld) 0 % Normal 0-2 [facility] Comment on above: Performed By: #### C DP, FT4, TSH, SSARO, SSBLA #### [address] [address] [place]: Mark Hernadez MD Eosinophils (Bld) [#/Vol] 0.05 10*3/uL Normal 0.00-0.44 [facility] Comment on above: Performed By: #### C DP, FT4, TSH, SSARO, SSBLA #### [address] [address] [place]: Mark Hernadez MD Eosinophils/100 WBC (Bld) 1 % Normal 1-4 [facility] Comment on above: Performed By: #### C DP, FT4, TSH, SSARO, SSBLA #### [address] [address] [place]: Mark Hernadez MD Erythrocyte distribution width (RBC) [Ratio] 13.6 % Normal 11.8-14.4 [facility] Comment on above: Performed By: #### C DP, FT4, TSH, SSARO, SSBLA #### [address] [address] [place]: Mark Hernadez MD Hematocrit (Bld) [Volume fraction] 30.1 % Low 36.3-47.1 [facility] Comment on above: Performed By: #### C DP, FT4, TSH, SSARO, SSBLA #### [address] [address] [place]: Mark Hernadez MD Hemoglobin (Bld) [Mass/Vol] 10.3 g/dL Low 11.9-15.1 [facility] Comment on above: Performed By: #### C DP, FT4, TSH, SSARO, SSBLA #### [address] [address] [place]: Mark Hernadez MD Immature granulocytes/100 WBC (Bld) 0 % Normal 0 [facility] Comment on above: Performed By: #### C DP, FT4, TSH, SSARO, SSBLA #### [address] [address] [place]: Mark Hernadez MD Lymphocytes (Bld) [#/Vol] 1.73 10*3/uL Normal 1.10-3.70 [facility] Comment on above: Performed By: #### C DP, FT4, TSH, SSARO, SSBLA #### [address] [address] [place]: Mark Hernadez MD Lymphocytes/100 WBC (Bld) 26 % Normal 24-43 [facility] Comment on above: Performed By: #### C DP, FT4, TSH, SSARO, SSBLA #### [address] [address] [place]: Mark Hernadez MD MCH (RBC) [Entitic mass] 31.3 pg Normal 25.2-33.5 [facility] Comment on above: Performed By: #### C DP, FT4, TSH, SSARO, SSBLA #### [place] [address] [place] [employer]: Mark Hernadez MD MCHC (RBC) [Mass/Vol] 34.2 g/dL Normal 28.4-34.8 [facility] Comment on above: Performed By: #### C DP, FT4, TSH, SSARO, SSBLA #### [place] [address] [place]: Mark Hernadez MD MCV (RBC) [Entitic vol] 91.5 fL Normal 82.6-102.9 [facility] Comment on above: Performed By: #### C DP, FT4, TSH, SSARO, SSBLA #### [place] [address] [place] [employer]: Mark Hernadez MD Monocytes (Bld) [#/Vol] 0.52 10*3/uL Normal 0.10-1.20 [facility] Comment on above: Performed By: #### C DP, FT4, TSH, SSARO, SSBLA #### [address] [address] [place]: Mark Hernadez MD Monocytes/100 WBC (Bld) 8 % Normal 3-12 [facility] Comment on above: Performed By: #### C DP, FT4, TSH, SSARO, SSBLA #### [address] [address] [place]: Mark Hernadez MD Neutrophil (Seg) 65 % Normal 36-65 [facility] Comment on above: Performed By: #### C DP, FT4, TSH, SSARO, SSBLA #### [address] [address] [place] Hand: Mark Hernadez MD NRBC Automated 0.0 per 100 WBC Normal 0.0 [facility] Comment on above: Performed By: #### C DP, FT4, TSH, SSARO, SSBLA #### [address] [address] [place]: Mark Hernadez MD Platelet mean volume (Bld) [Entitic vol] 9.8 fL Normal 8.1-13.5 [facility] Comment on above: Performed By: #### C DP, FT4, TSH, SSARO, SSBLA #### [address] [address] [place]: Mark Hernadez MD Platelets (Bld) [#/Vol] 265 10*3/uL Normal 138-453 [facility] Comment on above: Performed By: #### C DP, FT4, TSH, SSARO, SSBLA #### [address] [address] [place]: Mark Hernadez MD RBC (Bld) [#/Vol] 3.29 10*6/uL Low 3.95-5.11 [facility] Comment on above: Performed By: #### C DP, FT4, TSH, SSARO, SSBLA #### [address] [address] [place]: Mark Hernadez MD WBC (Bld) [#/Vol] 6.7 10*3/uL Normal 3.5-11.3 [facility] Comment on above: Performed By: #### C DP, FT4, TSH, SSARO, SSBLA #### [facility] [address] [place] [address] [place] Hand: Mark Hernadez MD Auto Diff Performed NOT REPORTED Normal [facility] Comment on above: Performed By: #### C DP, FT4, TSH, SSARO, SSBLA #### [address] [address] [place]: Mark Hernadez MD Platelet Comment NOT REPORTED Normal [facility] Comment on above: Performed By: #### C DP, FT4, TSH, SSARO, SSBLA #### [facility] [address] [place] [address] [place] Hand: Mark Hernadez MD RBC morphology finding Nom (Bld) NOT REPORTED Normal [facility] Comment on above: Performed By: #### C DP, FT4, TSH, SSARO, SSBLA #### [address] [address] [place] Hand: Mark Hernadez MD WBC Morphology NOT REPORTED Normal [facility] Comment on above: Performed By: #### C DP, FT4, TSH, SSARO, SSBLA #### [address] [address] [place]: Mark Hernadez MD No Panel Informationon 10-05 [facility] T4, FREEon 10-05-2021 Thyroxine, Free 1.04 ng/dL 0.93 - 1.70 ng/dL [facility] TSH without Reflexon 021 TSH Qn 1.94 m[IU]/L [facility] TYPE AND SCREENon 10-05-2021 ABO/Rh Positive [facility] Arm Band Number [id number] [facility] Expiration Date 10/08/2021,2359 [facility] Thyroid Stim. Horm.on 2020 TSH Qn 1.94 m[IU]/L Normal 0.30-5.00 [facility] Comment on above: Performed By: #### C DP, FT4, TSH, SSARO, SSBLA #### [employer] [facility] [place] [address] [place] Hand: Mark Hernadez MD Thyroxine, Freeon 10-05-2021 Thyroxine, Free 1.04 ng/dL Normal 0.93-1.70 [facility] Comment on above: Performed By: #### C DP, FT4, TSH, SSARO, SSBLA #### [facility] [address] [place] [phone] [place] Hand: Mark Hernadez MD Type + Screenon 10-05-2021 Type + Screen Sample Expiration 10/08/2021,2359 Arm Band Number [id number] ABO/Rh(D) O POSITIVE Antibody Screen NEGATIVE Normal [facility] Comment on above: Performed By: #### T YS #### [facility] [address] [place] [id number] [place] Hand: Mark Hernadez MD US PREG BIOPHY W [...] by: FERN CALZADA Date: 2021-10-05 13:16 Normal [facility] [place] [facility] US PREG GROWTHon 10-05-2021 US [...] (3rd percentile). 3. Slightly thickened appearance of Hayden's jelly surrounding the umbilical cord; nonspecific but can be associated with gestational diabetes. Report placed in the stat call folder. Electronically authenticated by: FERN CALZADA Date: 2021-10-05 13:22 Normal [facility] CBC AUTO DIFFon 09-05-2021 BASO # 0.0 103/ul Normal 0.0-0.1 [facility] [place] [facility] Comment on above: Performed By: #### Nora SALINAS #### [facility] [address] [place], [place] [address] Nancy Veronique Basophils/100 WBC (Bld) 0.3 % Normal 0.2-2.0 [facility] [place] [facility] Comment on above: Performed By: #### Nora SALINAS #### [facility] [address] [place], [place] [address] Nancy Veronique EO # 0.1 103/ul Normal 0.0-0.7 [facility] [place] [facility] Comment on above: Performed By: #### Nora SALINAS #### [facility] [address] [place], [place] [address] Nancy Veronique Eosinophils/100 WBC (Bld) 0.8 % Critically low 0.9-7.0 [facility] [place] [facility] Comment on above: Performed By: #### V RITA #### [facility] [address] [place], [place] [address] Nancy Veronique Erythrocyte distribution width (RBC) [Ratio] 13.5 % Normal 11.0-15.0 [facility] [place] [facility] Comment on above: Performed By: #### V MORSIEL #### [facility] [address] [place] [address] Nancy Piper Hematocrit (Bld) [Volume fraction] 33.0 % Critically low 36.0-48.0 [facility] [place] [facility] Comment on above: Performed By: #### V MORISEL #### [facility] [address] [place] [address] Nancypatricia Piper Hemoglobin (Bld) [Mass/Vol] 10.8 g/dL Critically low 12.0-16.0 [facility] [place] [facility] Comment on above: Performed By: #### Nora SALINAS #### [facility] [address] [place] [address] Nancypatricia Piper IG # 0.05 10e3/ul Critically high 0.00-0.03 [facility] Comment on above: Performed By: #### V RITA #### [facility] [address] [place] [address] Nancypatricia Piper IG % 0.6 % Critically high 0.0-0.5 [facility] Comment on above: Performed By: #### V RITA #### [facility] [address] [place] [address] Nancy Piper LYMPH # 1.4 103/ul Normal 1.2-3.8 [facility] [place] [facility] Comment on above: Performed By: #### Nora SALINAS #### [facility] [address] [place] [address] Nancy Piper Lymphocytes/100 WBC (Bld) 17.1 % Critically low 20.5-60.0 [facility] [place] [facility] Comment on above: Performed By: #### V MORISEL #### [facility] [address] [place] [address] Nancypatricia Piper MANUAL DIFF REQ NO Normal [facility] Comment on above: Performed By: #### V MORISEL #### [facility] [address] [place] [address] Nancypatricia Piper MCH (RBC) [Entitic mass] 31.4 pg Normal 26.7-34.0 [facility] [place] [facility] Comment on above: Performed By: #### Nora SALINAS #### [facility] [address] [place], [place] [address] Nancy Piper MCHC (RBC) [Mass/Vol] 32.7 g/dL Normal 29.9-35.2 [facility] [place] [facility] Comment on above: Performed By: #### Nora SALINAS #### [facility] [address] [place] [phone] Nancy Piper MCV (RBC) [Entitic vol] 95.9 fL Normal 81.0-99.0 [facility] [place] [facility] Comment on above: Performed By: #### Nora SALINAS #### [facility] [address] [place] [phone] Nancy Piper MONO # 0.5 103/ul Normal 0.3-0.8 [facility] Comment on above: Performed By: #### Nora SALINAS #### [facility] [address] [place], [place] [phone] Nancy Piper Monocytes/100 WBC (Bld) 6.3 % Normal 1.7-12.0 [facility] [place] [facility] Comment on above: Performed By: #### Nora SALINAS #### [facility] [address] [place], [place] [phone] Nancy Piper NEUT # 5.9 103/ul Normal 1.4-6.5 [facility] [place] [facility] Comment on above: Performed By: #### Nora SALINAS #### [facility] [address] [place], [place] [phone] Nancy Piper Neutrophils/100 WBC (Bld) 74.9 % Normal 43.0-75.0 [facility] Comment on above: Performed By: #### Nora SALINAS #### [facility] [address] [id number] Nancy Kellyen Platelet mean volume (Bld) [Entitic vol] 9.9 fL Normal 9.5-13.5 [facility] Comment on above: Performed By: #### Nora SALINAS #### [facility] [address] [id number] Nancy Veronique PLT 243 103/ul Normal 150-450 [facility] Comment on above: Performed By: #### V RITA #### [facility] [address] [place], [place] [address] Nancypatricia Kellyen RBC 3.44 106/ul Critically low 4.20-5.40 [facility] Comment on above: Performed By: #### V RITA #### [facility] [address] [place], [place] [address] Nancy Kellyen WBC 7.9 103/ul Normal 4.0-11.0 [facility] [place] [facility] Comment on above: Performed By: #### V RITA #### [facility] [address] [place], [place] [address] Nancy Piper GLUCOSE - 1HRon 09-05-2021 Glucose [Mass/Vol] 98 mg/dL Normal 74-106 [facility] Comment on above: Performed By: #### G LU1HR #### [facility] [address] [place], [place] [address] Dr. Leonardo Khalil US PREG ANATOMY SINGLEon [...] by ultrasound, 88th percentile by expected) FL/AC: [id number] FL/BPD: 0.354705 HC/AC: 1.051479 GESTATIONAL AGE: Age by EDC: 20 weeks, 6 days ÁLVARO by EDC: 11/28/2021 Age by current US: 21 weeks, 3 days ÁLVARO by current US: 11/24/2021 IMPRESSION: 1. Single live intrauterine with growth detailed above. Normal [facility] Pap IG, rfx Aptima HPV, rfx 16/18,45 + Con 05-22-2021 . . Normal [facility] Comment on above: Result Comment: Perf ormed at: WB Performed By: #### V MORISEL #### [facility] [address] [address] Nancy Piper Chlamydia, Nuc. Acid Amp Negative Normal Negative [facility] [place] [facility] Comment on above: Result Comment: Perf ormed at: =G Performed By: #### V RITA #### [facility] [address] [address] Nancy Piper DIAGNOSIS: Comment Normal [facility] Comment on above: Result Comment: NEGA TIVE FOR INTRAEPITHELIAL LESION OR MALIGNANCY. Performed at: WB Performed By: #### V MORISEL #### [facility] [address] [address] Nancy Piper Gonococcus, Nuc. Acid Amp Negative Normal Negative [facility] [place] [facility] Comment on above: Result Comment: Perf ormed at: =G Performed By: #### V MORISEL #### [facility] [address] [address] Nancy Piper HPV Aptima Negative Normal Negative [facility] Comment on above: Result Comment: This nucleic acid amplification test detects fourteen high-risk HPV types (16,18,31,33,35,39,45,51,52,56,58,59,66,68) without differentiation. Performed at: =G Performed By: #### V MORISEL #### [facility] [address] [address] Nancy Piper Methodology: Comment Normal [facility] [place] [facility] Comment on above: Result Comment: This liquid based ThinPrep(R) pap test was screened with the use of an image guided system. Performed at: WB Performed By: #### V ARCEL #### [facility] [address] [place], [place] [id number] Nancypatricia Piper Note: Comment Normal [facility] [place] [facility] Comment on above: Result Comment: [...] WB Performed By: #### V ARCEL #### [facility] [address] [place] [address] Nancypatricia Piper Performed by: Comment Normal [facility] Comment on above: Result Comment: Irving Alarcon, Gi Technician (ASCP) Performed at: WB Performed By: #### V ARCEL #### [facility] [address] [place] [address] Nancypatricia Piper Specimen adequacy: Comment Normal [facility] Comment on above: Result Comment: Sati sfactory for evaluation. No endocervical component is identified. Performed at: WB Performed By: #### V ARCEL #### [facility] [address] [place], [place] [id number] Nancy Piper CULTURE URINEon 05-18-2021 CULTURE URINE Culture Observations : LIGHT GROWTH OF MIXED GENITAL KRISTEL. NO POTENTIAL PATHOGENS SEEN. Normal [facility] [place] [facility] Comment on above: Performed By: #### U RCX #### [facility] [address] [place] [address] Nancy Piper UA RANDOM W/MICROSCOPICon BACTERIA NONE SEEN Normal NONE SEEN [facility] [place] [facility] Comment on above: Performed By: #### R PRQ #### [facility] [address] [place], [place] [id number] Nancy Veronique Bilirubin Ql (U) Negative Normal NEGATIVE [facility] Comment on above: Performed By: #### R PRQ #### [facility] [address] [place] [address] Nancy Veronique CAST NONE SEEN Normal NONE SEEN [facility] [place] [facility] Comment on above: Performed By: #### R PRQ #### [facility] [address] [place] [address] Nancy Veronique Clarity (U) CLEAR Normal CLEAR [facility] Comment on above: Performed By: #### R PRQ #### [facility] [address] [place] [address] Nancy Veronique Color (U) LT. YELLOW Normal YELLOW [facility] Comment on above: Performed By: #### R PRQ #### [facility] [address] [place] [address] Nancy Veronique Crystals LM Nom (Urine sed) NONE SEEN Normal NONE SEEN [facility] Comment on above: Performed By: #### R PRQ #### [facility] [address] [place] [address] Nancy Veronique Epithelial cells LM Ql (Urine sed) FEW Abnormal NONE SEEN /RARE [facility] Comment on above: Performed By: #### R PRQ #### [facility] [address] [place] [address] Nancy Veronique Glucose Ql (U) Negative Normal NEGATIVE [facility] Comment on above: Performed By: #### R PRQ #### [facility] [address] [place] [address] Anncy Veronique Hemoglobin Ql (U) Negative Normal NEGATIVE The [facility] Comment on above: Performed By: #### R PRQ #### [facility] [address] [place] [address] Nancy Veronique Ketones Ql (U) Negative Normal NEGATIVE [facility] Comment on above: Performed By: #### R PRQ #### [facility] [address] [place] [address] Nancy Veronique LEUKOCYTES Negative Normal NEGATIVE [facility] Comment on above: Performed By: #### R PRQ #### [facility] [address] [place] [address] Nancy Veronique MUCOUS TRACE Abnormal NONE SEEN [facility] [place] [facility] Comment on above: Performed By: #### R PRQ #### [facility] [address] [place] [address] Nancy Veronique Nitrite Ql (U) Negative Normal NEGATIVE [facility] Comment on above: Performed By: #### R PRQ #### [facility] [address] [place], [place] [id number] Nancy Piper pH (U) 5.5 [pH] Normal 5-9 [facility] Comment on above: Performed By: #### R PRQ #### [facility] [address] [place] [address] Nancy Piper RBC NONE SEEN Abnormal 0-2 [facility] Comment on above: Performed By: #### R PRQ #### [facility] [address] [place] [address] Nancy Piper SPEC GRAVITY >=1.030 Abnormal 1.005-<=1.025 [facility] Comment on above: Performed By: #### R PRQ #### [facility] [address] [place] [address] Nancy Piper UA PROTEIN Negative Normal NEGATIVE/ TRACE [facility] Comment on above: Performed By: #### R PRQ #### [facility] [address] [place] [address] Nancy Piper Urobilinogen Qn (U) 0.2 {Travis'U}/dL Normal 0.2 - 1. 0 [facility] Comment on above: Performed By: #### R PRQ #### [facility] [address] [place] [address] Nancy Piper WBC NONE SEEN Normal NONE SEEN [facility] Comment on above: Performed By: #### R PRQ #### [facility] [address] [place] [address] Nancy Piper HEMOGLOBINOPATHY FRACTIONATI ON CASCADEon 05-17-2021 HGB A 97.8 % Normal 96.4-98.8 [facility] Comment on above: Performed By: #### H GBCAS #### [facility] [address] [place] [address] Nancy Piper HGB A2 2.2 % Normal 1.8-3.2 [facility] Comment on above: Performed By: #### H GBCAS #### [facility] [address] [place] [address] Nancy Piper HGB F 0.0 % Normal 0.0-2.0 [facility] [place] [facility] Comment on above: Performed By: #### H GBCAS #### [facility] [address] [place] [address] Nancy Piper HGB S 0.0 % Normal 0.0 [facility] [place] [facility] Comment on above: Performed By: #### H GBCAS #### [facility] [address] [place] [address] Nancy Piper Interpretation: Comment Normal [facility] Comment on above: Result Comment: Norm al hemoglobin present; no hemoglobin variant or thalassemia observed. Performed By: #### H GBCAS #### [facility] [address] [place] [address] Nancy Piper HEP B SURFACE ANTIGEN SCREEN on 05-17-2021 HBsAg Screen Negative Normal Negative [facility] [place] [facility] Comment on above: Performed By: #### H BSANS #### [facility] [address] [place] [address] Nancy Piper HEPATITIS C ANTIBODYon 05-17 Hep C Virus Ab <0.1 Normal 0.0-0.9 [facility] Comment on above: Result Comment: Nega tive: < 0.8 Indeterminate: 0.8 - 0.9 Positive: > 0.9 . The CDC recommends that a positive HCV antibody result be followed up with a HCV Nucleic Acid Amplification test (016865). Performed By: #### H CV #### [facility] [address] [place] [address] Nancy Piper HIV 1 AND 2 WITH REFLEXon HIV Screen 4th Generation wRfx Non-Reactive Normal Non Reactive [facility] Comment on above: Performed By: #### V ARCEL #### [facility] [address] [place] [address] Nancy Piper RPR QUANTon 05-17-2021 Rapid Plasma Reagin, Quant Non-Reactive Normal NonRea<1:1 [facility] [place] [facility] Comment on above: Performed By: #### R PRQ #### [facility] [address] [place] [address] Nancy Piper RUBELLA AB IGGon 05-17-2021 Rubella Antibodies, IgG 4.07 index Normal Immune >0.99 [facility] [place] [facility] Comment on above: Result Comment: Non- immune <0.90 Equivocal 0.90 - 0.99 Immune >0.99 Performed By: #### R UBIGG #### [facility] [address] [place], [place] [id number] Nancy Piper VARICELLA IGG ABon 1 Varicella Zoster IgG 1067 index Normal Immune >165 [facility] Comment on above: Result Comment: Nega tive <135 Equivocal 135 - 165 Positive >165 A positive result generally indicates exposure to the pathogen or administration of specific immunoglobulins, but it is not indication of active infection or stage of disease. Performed By: #### V RITA #### [facility] [address] [place] [address] Nancy Piper CBC AUTO DIFFon 05-16-2021 BASO # 0.0 103/ul Normal 0.0-0.1 [facility] [place] [facility] Comment on above: Performed By: #### C BC #### [facility] [address] [place], [place] [id number] Nancy Piper Basophils/100 WBC (Bld) 0.3 % Normal 0.2-2.0 [facility] [place] [facility] Comment on above: Performed By: #### C BC #### [facility] [address] [place] [address] Nancy Piper EO # 0.1 103/ul Normal 0.0-0.7 [facility] Comment on above: Performed By: #### C BC #### [facility] [address] [place] [address] Nancy Piper Eosinophils/100 WBC (Bld) 0.8 % Critically low 0.9-7.0 [facility] Comment on above: Performed By: #### C BC #### [facility] [address] [place], [place] [id number] Nancy Piper Erythrocyte distribution width (RBC) [Ratio] 12.6 % Normal 11.0-15.0 [facility] [place] [facility] Comment on above: Performed By: #### C BC #### [facility] [address] [place] [address] Nancy Veronique Hematocrit (Bld) [Volume fraction] 36.7 % Normal 36.0-48.0 [facility] Comment on above: Performed By: #### C BC #### [facility] [address] [place] [address] Nancy Veronique Hemoglobin (Bld) [Mass/Vol] 12.5 g/dL Normal 12.0-16.0 [facility] Comment on above: Performed By: #### C BC #### [facility] [address] [place], [place] [id number] Nancy Veronique IG # 0.03 10e3/ul Normal 0.00-0.03 [facility] Comment on above: Performed By: #### C BC #### [facility] [address] [place] [address] Nancy Veronique IG % 0.3 % Normal 0.0-0.5 [facility] [place] [facility] Comment on above: Performed By: #### C BC #### [facility] [address] [place] [address] Nancy Veronique LYMPH # 1.7 103/ul Normal 1.2-3.8 [facility] Comment on above: Performed By: #### C BC #### [facility] [address] [place] [address] Nancy Veronique Lymphocytes/100 WBC (Bld) 16.9 % Critically low 20.5-60.0 [facility] Comment on above: Performed By: #### C BC #### [facility] [address] [place] [address] Nancypatricia Kellyen MANUAL DIFF REQ NO Normal [facility] Comment on above: Performed By: #### C BC #### [facility] [address] [place], [place] [id number] Nancy Veronique MCH (RBC) [Entitic mass] 30.7 pg Normal 26.7-34.0 [facility] Comment on above: Performed By: #### C BC #### [facility] [address] [place], [place] [id number] Nancy Veronique MCHC (RBC) [Mass/Vol] 34.1 g/dL Normal 29.9-35.2 [facility] [place] [facility] Comment on above: Performed By: #### C BC #### [facility] [address] [place], [place] [id number] Nancy Piper MCV (RBC) [Entitic vol] 90.2 fL Normal 81.0-99.0 [facility] [place] [facility] Comment on above: Performed By: #### C BC #### [facility] [address] [place], [place] [id number] Nacny Piper MONO # 0.7 103/ul Normal 0.3-0.8 [facility] Comment on above: Performed By: #### C BC #### [facility] [address] [place] [address] Nancy Piper Monocytes/100 WBC (Bld) 6.5 % Normal 1.7-12.0 [facility] [place] [facility] Comment on above: Performed By: #### C BC #### [facility] [address] [place] [address] Nancy Kellyen NEUT # 7.6 103/ul Critically high 1.4-6.5 [facility] Comment on above: Performed By: #### C BC #### [facility] [address] [place], [place] [id number] Nancy Piper Neutrophils/100 WBC (Bld) 75.2 % Critically high 43.0-75.0 [facility] [place] [facility] Comment on above: Performed By: #### C BC #### [facility] [address] [place], [place] [id number] Nancy Piper Platelet mean volume (Bld) [Entitic vol] 10.0 fL Normal 9.5-13.5 [facility] Comment on above: Performed By: #### C BC #### [facility] [address] [place], [place] [id number] Nancy Veronique PLT 275 103/ul Normal 150-450 [facility] Comment on above: Performed By: #### C BC #### [facility] [address] [place], [place] [id number] Nancy Veronique RBC 4.07 106/ul Critically low 4.20-5.40 [facility] Comment on above: Performed By: #### C BC #### [facility] [address] [place], [place] [address] Nancypatricia Piper WBC 10.2 103/ul Normal 4.0-11.0 [facility] [place] [facility] Comment on above: Performed By: #### C BC #### [facility] [address] [place], [place] [address] Nancypatricia Piper GLYCOHEMOGLOBIN A1Con 2020 ADA RECOMMENDATION ADA THERAPEUTIC TARGET 6.0 - 7.0 ACTION SUGGESTED > 7.0 Normal [facility] [place] [facility] Comment on above: Performed By: #### A 1C #### [facility] [address] [id number] Nancy Veronique Glucose [Mass/Vol] 91 mg/dL Normal [facility] Comment on above: Performed By: #### A 1C #### [facility] [address] [phone] Nancy Veronique HbA1c (Bld) [Mass fraction] 4.8 % Normal <=6.0 [facility] [place] [facility] Comment on above: Performed By: #### A 1C #### [facility] [address] [place], [place] [id number] Nancy Veronique PREG QUANT HCGon 05-16-2021 HCG QUANT 90127 mIU/mL Normal [facility] [place] [facility] Comment on above: Result Comment: Dilu mara Performed By: #### Nora SALINAS #### [facility] [address] [place], [place] [id number] Nancy Veronique HCG RANGE SEE BELOW Normal [facility] [place] [facility] Comment on above: Result Comment: 5-50 0-1 WEEK 40-300 1-2 WEEKS 100-1,000 2-3 WEEKS 500-6,000 3-4 WEEKS 5,000-200,000 1-2 MONTHS 10,000-100,000 2-3 MONTHS 3,000-50,000 2ND TRIMESTER 1,000-50,000 3RD TRIMESTER Performed By: #### Nora SALINAS #### [facility] [address] [place] [id number] Nancy Veronique TYPE AND SCREENon 05-16-2021 TYPE AND SCREEN Negative Normal [facility] Comment on above: Performed By: #### R PRQ #### [facility] [address] [place] [address] Nancy Piper US PREG TVon 04-18-2021 US [...] by: CHELITA CARDENAS Date: 2021-04-18 12:02 Normal [facility] [place] [facility] Vital Signs Date Time Vital Sign Value Performing Clinician Faci lity 08-20-2024 09:39-0500 Body mass index (BMI) [Ratio] 32.74 kg/m2 Radha Sneha DO Work Phone: [facility] 08-20-2024 09:39-0500 Body weight 81.19 kg Radha Sneha DO Work Phone: [facility] 08-20-2024 09:39-0500 Diastolic blood pressure 68 mm[Hg] Radha Sneha DO Work Phone: [facility] 08-20-2024 09:39-0500 Systolic blood pressure 112 mm[Hg] Radha Sneha DO Work Phone: [facility] 08-04-2024 11:48-0400 Body mass index (BMI) [Ratio] 31.97 kg/m2 Radha Sneha DO Work Phone: [facility] 08-04-2024 11:48-0400 Body weight 79.29 kg Radha Sneha DO Work Phone: [facility] 08-04-2024 11:48-0400 Diastolic blood pressure 68 mm[Hg] Radha Sneha DO Work Phone: [facility] 08-04-2024 11:48-0400 Systolic blood pressure 102 mm[Hg] Radha Sneha DO Work Phone: [facility] 07-15-2024 10:54-0400 Body mass index (BMI) [Ratio] 31.46 kg/m2 Radha Sneha DO Work Phone: [facility] 07-15-2024 10:54-0400 Body weight 78.02 kg Radha Sneha DO Work Phone: [facility] 07-15-2024 10:54-0400 Diastolic blood pressure 70 mm[Hg] Radha Sneha DO Work Phone: [facility] 07-15-2024 10:54-0400 Systolic blood pressure 110 mm[Hg] Radha Sneha DO Work Phone: [facility] 10-06-2021 09:06-0500 Body temperature 98.2 [degF] Elvia Donis DO Work Phone: [facility] 10-06-2021 09:06-0500 Diastolic blood pressure 74 mm[Hg] Elvia Donis DO Work Phone: [facility] 10-06-2021 09:06-0500 Heart rate 84 /min [facility] 10-06-2021 09:06-0500 Respiratory rate 17 /min [facility] 10-06-2021 09:06-0500 SaO2% (BldA) [Mass fraction] 99 % Elvia Donis DO Work Phone: [facility] 10-06-2021 09:06-0500 Systolic blood pressure 121 mm[Hg] Elvia Donis DO Work Phone: [facility] 10-05-2021 18:40-0500 Body height 157.5 cm Elvia Donis DO Work Phone: [facility] 12-23-2021 18:40-0500 Body mass index (BMI) [Ratio] 30.36 kg/m2 Elvia Donis DO Work Phone: [facility] 10-05-2021 18:40-0500 Body weight 75.3 kg Elvia Donis DO Work Phone: [facility] Encounters Encounter Date Encounter Type Care Provider Facility Start: 08-20-2024 End: 08-20-2024 Bamboo flowsheet Radha Sneha DO Work Phone: [facility] Start: 08-20-2024 End: 08-20-2024 Bamboo flowsheet Radha Sneha DO Work Phone: [facility] Start: 08-20-2024 End: 08-20-2024 ambulatory RADHA SNEHA Not Available Start: 08-20-2024 End: 08-20-2024 flow sheet Radha Sneha DO Work Phone: [facility] Comment on above: 30 weeks gestation o f ; Third trimester ; Low hemoglobin; H/O oligohydramnios in prior , currently ; Multigravida of advanced maternal age in third trimester Start: 08-04-2024 End: 08-04-2024 Bamboo flowsheet Radha Sneha DO Work Phone: [facility] Start: 08-04-2024 End: 08-04-2024 Bamboo flowsheet Radha Sneha DO Work Phone: [facility] Start: 08-04-2024 End: 08-04-2024 ambulatory RADHA SNEHA Not Available Start: 08-04-2024 End: 08-04-2024 flow sheet Radha Sneha DO Work Phone: [facility] Comment on above: 28 weeks gestation o f ; Third trimester ; Multigravida of advanced maternal age in third trimester Start: 08-03-2024 End: 08-03-2024 Clinisync Result Encounter Radha Sneha DO Work Phone: [facility] External Department Unsolicited Start: 08-03-2024 End: 08-03-2024 Clinisync Result Encounter Radha Sneha DO Work Phone: [facility] External Department Unsolicited Start: 07-15-2024 End: 07-15-2024 Bamboo flowsheet Radha Sneha DO Work Phone: [facility] Start: 07-15-2024 End: 07-15-2024 Bamboo flowsheet Radha Sneha DO Work Phone: [facility] Start: 07-15-2024 End: 07-15-2024 flow sheet Radha Sneha DO Work Phone: [facility] Comment on above: Second trimester pre gnancy; 25 weeks gestation of ; Diabetes mellitus screening; H/O oligohydramnios in prior , currently Start: 07-15-2024 End: 07-15-2024 ambulatory RADHA SNEHA Not Available Start: 06-17-2024 End: 06-17-2024 ambulatory CHITRA POYL Not Available Start: 05-21-2024 End: 05-21-2024 ambulatory RADHA SNEHA Not Available Start: 04-23-2024 End: 04-23-2024 ambulatory RADHA SNEHA Not Available Start: 04-22-2024 ambulatory BINDER COVERSTITCH Yola Metz ity:[facility] Start: 03-19-2024 End: 03-19-2024 ambulatory RADHA SNEHA Not Available Start: 11-12-2023 End: 11-12-2023 ambulatory RADHA SNEHA Not Available Start: 05-07-2023 ambulatory BINDER COVERSTITCH Yola Ivey y:[facility] Start: 04-24-2022 End: 04-24-2022 Off-Site Ana Gudimella [facility] Start: 03-22-2022 End: 03-22-2022 Off-Site Ana Gudimella [facility] Start: 11-09-[address] DOCTOR BURGOS Facility :[facility] Start: 11-06-2021 End: 11-06-[address] RADHA HOOVER Facility:[facility] Start: 11-03-2021 End: 11-03-[address] RADHA HOOVER Facility:[facility] Start: 11-02-2021 End: 11-02-[address] CHELITA CARDENAS Facility:[facility] Start: 10-30-2021 End: 10-30-[address] PEG LACEY Facility:[facility] Start: 10-26-2021 End: 10-26-[address] CHELITA CARDENAS Facility:[facility] Start: 10-24-2021 End: 10-25-2021 ambulatory [facility]UG[facility] Start: 10-19-2021 End: 10-19-[address] PEG LACEY Facility:[facility] Start: 10-12-2021 End: 10-12-[address] PEG LACEY Facility:[facility] Start: 10-06-2021 End: 10-06-[address] RADHA HOOVER Facility:[facility] Start: 10-05-2021 End: 10-06-2021 ambulatory ELVIA DONIS [facility] Start: 10-05-2021 End: 10-06-2021 Subsequent hospital visit [...] Date Procedure Procedure Detail Performing Clinician Start: 08-20-2024 Urnls dip stick/tabl et rgnt non-auto w/o micrscp Radha Sneha DO Work Phone: Start: 08-04-2024 Urnls dip stick/tabl et rgnt non-auto w/o micrscp Radha Sneha DO Work Phone: Start: 08-03-2024 ALL CBC WITH AUTO DIFF Radha Senha DO Work Phone: Start: 07-15-2024 Urnls dip stick/tabl et rgnt non-auto w/o micrscp Radha Sneha DO Work Phone: Start: 10-05-2021 Antibody screen Elvia nielsen DO Work Phone: Start: 10-05-2021 Assay of free thyroxine Ellis Colmenares DO Work Phone: Start: 10-05-2021 Blood typing serolog ic abo Ellis Colmenares DO Work Phone: Plan of Treatment Date Care Activity Detail Author Start: 12-03-2027 DTaP/Tdap/Td vaccine (2 - Td or Tdap) DTaP/Tdap/Td vaccine (2 - Td or Tdap) [facility] Start: 09-17-2024 End: 09-17-2024 Patient encounter procedure 09/17/2024 9:10 AM EST Routine [facility] [address] [place] [address] Radha Hoover DO [address] [place] [address] [facility] Start: 09-03-2024 End: 09-03-2024 Patient encounter procedure 09/03/2024 9:30 AM EST Routine [facility] [address] [place] [address] Chitra Pang PA [address] [place], [place] [id number] [facility] Start: 08-20-2024 End: 08-20-2025 US biophysical profile w non stress test US biophysical profile w non stress test Imaging Routine 30 weeks gestation of Third trimester Low hemoglobin H/O oligohydramnios in prior , currently Multigravida of advanced maternal age in third trimester Expected: 08/20/2024 (Approximate), Expires: 08/20/2025 [facility] Comment on above: Expected: 08/20/2024 (Approximate), Expires: 08/20/2025 Start: 08-20-2024 End: 08-20-2025 US for US OB AMNIOTIC FLUID VOLUME Imaging Routine 30 weeks gestation of Third trimester Low hemoglobin H/O oligohydramnios in prior , currently Multigravida of advanced maternal age in third trimester Expected: 08/20/2024 (Approximate), Expires: 08/20/2025 [facility] Work Phone: Comment on above: Expected: 08/20/2024 (Approximate), Expires: 08/20/2025 Start: 08-20-2024 End: 08-20-2024 Patient encounter procedure 08/20/2024 9:00 AM EST Routine [facility] [address] [place] [phone] Radha Hoover, [address] [facility] [place] [address] [facility] Start: 08-20-2024 End: 08-20-2024 Professional / ancillary services management 08/20/2024 8:30 AM EST Ancillary Procedure [facility] [address] [facility] [place] [phone] [facility] Start: 08-04-2024 End: 08-04-2025 US for US OB SCAN FOR GROWTH Imaging Routine Multigravida of advanced maternal age in third trimester Expected: 08/04/2024 (Approximate), Expires: 08/04/2025 [facility] Work Phone: Comment on above: Expected: 08/04/2024 (Approximate), Expires: 08/04/2025 Start: 08-04-2024 End: 08-04-2024 Patient encounter procedure 08/04/2024 11:30 AM EDT Routine [facility] [address] [place] [phone] Radha Hoover, DO [address] [facility] [place] [address] [facility] Start: 07-15-2024 End: 07-15-2025 CBC panel - Blood by Automated count CBC Lab Routine Diabetes mellitus screening Expected: 07/15/2024 (Approximate), Expires: 07/15/2025 [facility] Work Phone: Comment on above: Expected: 07/15/2024 (Approximate), Expires: 07/15/2025 Start: 07-15-2024 End: 07-15-2025 Measurement of glucose 1 hour after glucose challenge for glucose tolerance test Glucose tolerance, 1 hour Lab Routine Diabetes mellitus screening Expected: 07/15/2024 (Approximate), Expires: 07/15/2025 [facility] Comment on above: Expected: 07/15/2024 (Approximate), Expires: 07/15/2025 Start: 07-15-2024 End: 07-15-2025 US for US OB SCAN FOR GROWTH Imaging Routine H/O oligohydramnios in prior , currently Expected: 07/15/2024 (Approximate), Expires: 07/15/2025 [facility] Comment on above: Expected: 07/15/2024 (Approximate), Expires: 07/15/2025 Start: 07-15-2024 End: 07-15-2024 Patient encounter procedure 07/15/2024 10:50 AM EDT Routine [facility] [address] [place] [phone] Radha Hoover, DO [address] [place] [address] Arrived [facility] Comment on above: Arrived Start: 06-14-2024 Influenza vaccination Influenza Vacc ine (#1) [facility] Start: 08-10-2021 COVID-19 Vaccine (3 - Booster for Pfizer series) COVID-19 Vaccine (3 - Booster for Pfizer series) [facility] Start: 06-14-2021 Influenza vaccination Flu vaccine (# 1) [facility] Start: 2019 Screening for malign ant neoplasm of cervix [facility] Start: 2010 Screening for malign ant neoplasm of cervix Pap smear [facility] Start: 2004 HIV screening HIV screen [facility] Start: 1990 Varicella vaccine (1 of 2 - 2-dose childhood series) Varicella vaccine (1 of 2 - 2-dose childhood series) [facility] Start: 1989 Hepatitis C screening Hepatitis C sc reen [facility] End: 10-06-2021 MISCELLANEOUS TESTING MISCELLANEOUS TESTING Lab STAT Once for 1 Occurrences starting 10/06/2021 until 10/06/2021 [employer] Phone: Comment on above: Once for 1 Occurrenc es starting 10/06/2021 until 10/06/2021 Nonrebreather mask oxygen Nonrebreather mask oxygen Respiratory Care Routine As directed - RT (PRN) until discontinued starting 10/05/2021 [employer] Phone: Comment on above: As directed - RT (NE N) until discontinued starting 10/05/2021 End: 10-05-2021 SJOGRENS SYNDROME-A EXTRACTABLE NUCLEAR ANTIBODY [employer] Phone: Comment on above: One Time for 1 Occur rences starting 10/05/2021 until 10/05/2021 End: 10-05-2021 SJOGRENS SYNDROME-B EXTRACTABLE NUCLEAR ANTIBODY [facility] Comment on above: One Time for 1 Occur rences starting 10/05/2021 until 10/05/2021 Immunizations Immunization Date Immunization Notes Care Provider Giovany hargrove 10-19-2021 influenza virus vaccine, unspecified formulation Ana Em [facility] [place] 10-19-2021 tetanus toxoid, redu garry diphtheria toxoid, and acellular pertussis vaccine, adsorbed Ana Gudimella [facility] 02-08-2021 SARS-CoV-2 (COVID-19 ) mRNA BNT-162b2 vax Ana Gudimella [facility] 01-18-2021 SARS-CoV-2 (COVID-19 ) mRNA BNT-162b2 vax Ana Gudimella [facility] 08-26-2020 influenza, unspecifi ed formulation Ana Gudimella [facility] Payers Date Payer Category Payer Private Health Insurance [employer] [id number] 2023 Unknown [employer] [id number] 2023-Present [address] [place] [address] [id number] 2019 Unknown [id number] [id number]. 7.3.673634.315 1989 Unknown [id number] 2.16.840.1.233756.3.579.2. 175 1989 Unknown [id number] 2.16.840.1.127326.3.579.2. 175 1989 Unknown [id number] 2.16.840.1.243243.3.579.2. 593 1989 Unknown [id number] 2.16.840.1.436687.3.579.2. 593 1989 Unknown [id number] 2.16.840.1.837649.3.579.2. 593 1989 Unknown [id number] 2.16840.1.627001.3.579.2. 593 1989 Unknown [id number] 2.16840.1.667672.3.579.2. 593 1989 Unknown [id number] 2.16840.1.874053.3.579.2. 593 1989 Unknown [id number] 2.16840.1.882700.3.579.2. 593 1989 Unknown [id number] 2.16.840.1.298416.3.579.2. 593 1989 Unknown [id number] 2.16840.1.585148.3.579.2. 593 1989 Unknown [id number] 2.16.840.1.253338.3.579.2. 593 1989 Unknown [id number] 2.16.840.1.075732.3.579.2. 593 1989 Unknown [id number] 2.16.840.1.919687.3.579.2. 593 1989 Unknown [id number] 2.16.840.1.337259.3.579.2. 593 1989 Unknown [id number] 2.16.840.1.660424.3.579.2. 593 1989 Unknown [id number] 2.16.840.1.205357.3.579.2. 593 1989 Unknown [id number] 2.16.840.1.844106.3.579.2. 727 1989 Unknown [id number] 2.16.840.1.491078.3.579.2. 727 1989 Unknown [id number] 2.16.840.1.913081.3.579.2. 1259 1989 Unknown [id number] 2.16.840.1.592365.3.579.2. 1258 1989 Unknown [id number] 2.16.840.1.975168.3.579.2. 9 1989 Unknown [id number] 2.16840.1.394990.3.579.2. 1258 1989 Unknown [id number] 2.16.840.1.376391.3.579.2. 9 1989 Unknown [id number] 2.16840.1.644141.3.579.2. 9 1989 Unknown [id number] 2.16.840.1.299368.3.579.2. 9 1989 Unknown [id number] 2.16.840.1.673025.3.579.2. 1259 1959 Self-pay Unknown [id number] 2.16.840.1.335682.3.579.2. 593 Social History Date Type Detail Facility Start: 10-05-2021 End: 03-19-2024 Tobacco smoking status [facility] Never smoked tobacco [employer] Phone: Start: 10-05-2021 End: 03-19-2024 Tobacco use and exposure Smokeless tobacco non-user [employer] Phone: Start: 10-05-2021 End: 08-20-2024 Alcohol intake Ex-drinker (finding) [employer] Work Phone: Start: 03-07-2021 [employer] Work Phone: Start: 1990 [facility]: Tobacco smoking status Never [facility] Start: 03-19-2024 Sex Assigned At Female F [facility] Start: 03-19-2024 History of Social function [facility] Functional Status Date Assessment Result Facility 04-24-2022 Functional Status Telehealth Patient [facility] Clinical Notes 10-06-2021 to 08-20-2024 Alisia Anderson LPN - 08/20/2024 9:00 AM Stella Holm FINANCIAL AID ADMINISTRATOR - 08/04/2024 11:30 AM Charles Holm LPN - 07/15/2024 10:50 AM Lena Evans, - 10/06/2021 1:35 PM EST Note Date & Type Note Facility 08-20-2024 History of Present illness Narrative Reason for Appointment: Patient ID: Carla North is a 34 y.o. female who presents for Routine Visit Patient presents today for Return OB appointment. MEDICATIONS Current Outpatient Medications Medication Instructions BABY ASPIRIN PO 81 mg iron polysaccharides (PROFE) 391.3 mg, Oral, Daily ondansetron (ZOFRAN) 4 mg, 3 times daily PRN MV-Min-Fe Fum-FA-DHA ( 1 PO) Take by mouth ALLERGIES No Known Allergies PROBLEMS Active Ambulatory Problems Diagnosis Date Noted No Active Ambulatory Problems Resolved Ambulatory Problems Diagnosis Date Noted No Resolved Ambulatory Problems No Additional Past Medical History HISTORY PAST MEDICAL HISTORY SOCIAL HISTORY History reviewed. No pertinent past medical history. Social History Tobacco Use Smoking status: Never Smokeless tobacco: Never Substance Use Topics Alcohol use: Not Currently Drug use: Never FAMILY HISTORY No family history on file. SURGICAL HISTORY History reviewed. No pertinent surgical history. REVIEW OF SYSTEMS Review of Systems: Review of Systems All other systems reviewed and are negative. OBJECTIVE Objective: Physical Exam Constitutional: Appearance: Normal [...] nursing note reviewed. Exam conducted with a dining room manager present. Vitals: Estimated body mass index is 32.74 kg/m as calculated from the following: Height as of 11/12/23: 5' 2 . Weight as of this encounter: 179 lb. BP: 112/68 Patient's last menstrual period was 01/17/2024. ASSESSMENT & PLAN ICD-10-CM 1. 30 weeks gestation of Z3A.30 POCT urinalysis dipstick manually resulted US OB AMNIOTIC FLUID VOLUME US biophysical profile w non stress test 2. Third trimester Z34.93 POCT urinalysis dipstick manually resulted US OB AMNIOTIC FLUID VOLUME US biophysical profile w non stress test 3. Low hemoglobin D64.9 US OB AMNIOTIC FLUID VOLUME US biophysical profile w non stress test 4. H/O oligohydramnios in prior , currently O09.299 US OB AMNIOTIC FLUID VOLUME US biophysical profile w non stress test 5. Multigravida of advanced maternal age in third trimester O09.523 US OB AMNIOTIC FLUID VOLUME US biophysical profile w non stress test Patient presents today for a routine obstetrics appointment. Patient is currently 30w6d with a Estimated Date of Delivery: 10/23/24. Patients CHERELLE is low at this time, but official ultrasound has not been read at this time. Patient to have repeat CHERELLE on Saturday--order given for CHERELLE to be scheduled at [facility] order faxed to [facility]. Patient also given orders to schedule NST/ BPP starting at 32 weeks gestation. Reassurance given and patient to return to clinic in 2 weeks for routine OB appointment. Documented by Alisia Anderson LPN on behalf of: Radha Hoover DO documented in this encounter [facility] 08-04-2024 History of Present illness Narrative Reason for Appointment: Patient ID: Carla North is a 34 y.o. female who presents for Routine Visit Patient presents today for Return OB appointment. MEDICATIONS Current Outpatient Medications Medication Instructions BABY ASPIRIN PO 81 mg iron polysaccharides (PROFE) 391.3 mg, Oral, Daily ondansetron (ZOFRAN) 4 mg, 3 times daily PRN MV-Min-Fe Fum-FA-DHA ( 1 PO) Take by mouth ALLERGIES No Known Allergies PROBLEMS Active Ambulatory Problems Diagnosis Date Noted No Active Ambulatory Problems Resolved Ambulatory Problems Diagnosis Date Noted No Resolved Ambulatory Problems No Additional Past Medical History HISTORY PAST MEDICAL HISTORY SOCIAL HISTORY History reviewed. No pertinent past medical history. Social History Tobacco Use Smoking status: Never Smokeless tobacco: Never Substance Use Topics Alcohol use: Not Currently Drug use: Never FAMILY HISTORY No family history on file. SURGICAL HISTORY History reviewed. No pertinent surgical history. REVIEW OF SYSTEMS Review of Systems: Review [...] nursing note reviewed. Exam conducted with a dining room manager present. Vitals: Estimated body mass index is 31.97 kg/m as calculated from the following: Height as of 24: 5' 2 . Weight as of this encounter: 174 lb 12.8 oz. BP: 102/68 Patient's last menstrual period was 01/17/2024. ASSESSMENT & PLAN ICD-10-CM 1. 28 weeks gestation of Z3A.28 POCT urinalysis dipstick manually resulted 2. Third trimester Z34.93 POCT urinalysis dipstick manually resulted 3. Multigravida of advanced maternal age in third trimester O09.523 Return OB: Patient presents today for a routine obstetrics appointment. Patient is currently 28w4d . Patient states she is doing well but has complaints of being tired due to current . Patient has verbalizes frequent movement. labor precautions was discussed/given and patient was instructed to perform kick counts three times a day. Pt started profe today for low hgb- given order for repeat CBC. Pt to have standing order growth ultrasound every 4 weeks Orders Placed This Encounter Procedures POCT urinalysis dipstick manually resulted Follow Up: Patient is to return to office in 2 week for routine OB appointment. Documented by Veronique Holm LPN on behalf of: Radha Hoover DO documented in this encounter [facility] 07-15-2024 History of Present illness Narrative Reason for Appointment: Patient ID: [...] nursing note reviewed. Exam conducted with a dining room manager present. Vitals: Estimated body mass index is [...] Radha Hoover DO documented in this encounter [facility] 03-22-2022 Hospital Discharge instructions Follow Up Care 03/22/2022 14:50:25 With:Maria Antonia VIVAS, LINNETTE Perez, MED Address: [address] [place] [phone] [phone] Business (1) When:Within 3 Month(s) [facility] 03-14-2022 Hospital Discharge instructions Follow Up Care 03/14/2022 16:26:08 With:Ana Em MD, FAM, MED Address: [address] [place] [phone]- [phone] Business (1) When:Within 1 Month(s) [facility] 10-06-2021 Hospital Discharge instructions Daria Evans DO - 10/06/2021 Images [...] Where can you learn more? Go to [email or web address] and sign in to your [employer] account. Enter A006 in the Search Health Information box to learn more about Learning About Low Amniotic Fluid. If you do not have an account, please click on the Sign Up Now link. Current as of: March 29, 2021 Content Version: 13.1 [employer]. Care instructions adapted under license by [employer]. If you have questions about a medical condition or this instruction, always ask your healthcare professional. [employer] disclaims any warranty or liability for your use of this information. documented in this encounter [employer] Work Phone: 10-06-2021 History of Present illness Narrative Obstetric/Gynecology [...] will get second dose of [facility]. Follow up with MFM on Saturday. Follow up with peds cardio in 1-2 weeks. Follow up with Dr. Hoover in one week. Attending in agreement with plan of care. Daria Evans DO FOLDER OPERATOR Resident, PGY3 [place], [place] 10/06/2021, 1:35 PM Maternal Medicine Ultrasound [...] Residents updated, RN updated. Daria Evans DO [employer] Resident 10/06/2021, 10:06 AM Pt c/o headache related to lack of sleep or hunger, tylenol given FOLDER OPERATOR PROGRESS NOTE Carla North is a [...] # 1.73 1.10 - 3.70 k/uL Absolute [place] # 0.52 0.10 - 1.20 k/uL Absolute Eos # 0.05 0.00 - 0.44 k/uL Basophils Absolute <0.03 0.00 - 0.20 k/uL Absolute Immature Granulocyte 0.03 0.00 - 0.30 k/uL WBC Morphology NOT REPORTED RBC Morphology NOT REPORTED Platelet Estimate NOT REPORTED TYPE AND SCREEN Collection Time: 10/05/21 8:21 PM Result Value Ref Range Expiration Date 10/08/2021,2359 Arm Band Number BE [id number] ABO/Rh O POSITIVE Antibody Screen NEGATIVE TSH [...] Diet - MFM ultrasound 10/05 demonstrates BPP 8/ with CHERELLE 4cm, plan for repeat MFM [...] Will update attending physician. Ellis Colmenares DO [employer] Resident 10/06/2021, 5:35 AM documented in this encounter [employer] Phone: Evaluation + Plan note Future Appointments Appointment Date:04/24/2022 01:20:00 PM Scheduled Provider:Ana Em MD Location:[facility] Appointment Type:FM Video Visit [facility] [place] Evaluation note Diagnosis 32 weeks gestation of [...] episode of care documented in this encounter [employer] Phone: evaluation note* Diagnosis Second trimester state, incidental 25 weeks gestation of Diabetes mellitus screening Screening for diabetes mellitus H/O oligohydramnios in prior , currently [facility] Diagnosis 28 weeks gestation of Third trimester state, incidental Multigravida of advanced maternal age in third trimester documented [facility]* Diagnosis 30 weeks gestation of Third trimester state, incidental Low hemoglobin H/O oligohydramnios in prior , currently Multigravida of advanced maternal age in third trimester [facility] Narrative No data available for this section [facility] Progress note No data available for this section [facility] Advance Directives No Advanced Directives Records FoundLatest [...] 24 HOURS, First dose on Sat10/05/21 at 1999, For 2 doses 2041 (Given - Provider: Rojas Stanton RN) 1999 (Due) vitamin plus iron 29-1 MG tablet 1 tablet 1 tablet, Oral, DAILY, First dose on Sat10/06/21 at 0900 0917 (Given - Provid er: Juliana Hamm, RN) sertraline (ZOLOFT) tablet 25 mg 25 mg, Oral, DAILY, First dose on Sat10/06/21 at 0900 0917 (Given - Provid er: Juliana Hamm, RN) PRN Medication Order 10/04/2021 10/05/2021 10/06/2021 [...]
Care Teams (unrecognized sec tion and content) Hand Packager Relationship Specialty [place] [address] [place], [place] [phone] PCP - General Family Medicine 10/05/21 Hand Packager Relationship Specialty Start Date End Date Yola Camarena MD [address] [place] [address] PCP - General 11/11/23 Hand Packager Relationship Specialty Start Date End Date Yola Camarena MD [address] [place], [place] [phone] PCP - General 11/11/23 Hand Packager Relationship Specialty Start Date End Date Yola Camarena MD [address] [place] [address] PCP - General 11/11/23 Hand Packager Relationship Specialty Start Date End Date Yola Camarena MD [address] [place] [phone] PCP - General 11/11/23 Hand Packager Relationship Specialty Start Date End Date Yola Camarena MD [address] [place] [phone] PCP - General 11/11/23 Hand Packager Relationship Specialty Start Date End Date Yola Camarena MD [address] [place] [phone] PCP - General 11/11/23 Hand Packager Relationship Specialty Start Date End Date Yola Camarena MD [address] [place] [phone] PCP - General 11/11/23 INFORMATION SOURCE (unrecogn ized section and content) DATE CREATED AUTHOR 11/08/2021 [facility] DATE CREATED AUTHOR AUTHOR'S ORGANIZ ATION 01/22/2022 [facility] DATE CREATED AUTHOR AUTHOR'S ORGANIZ ATION 04/28/2024 [facility] DATE CREATED AUTHOR AUTHOR'S ORGANIZ ATION 08/22/2024 [facility] FOR RECORDS PERTAINING [...] BE BASED ON THE PRIMARY CLINICAL RECORDS. [facility] [employer] [facility]. provides no warranty or guarantee of the accuracy or completeness of information in this document.
== END 2024-08-22 13:59 | disposition home or self-care (01) ==
LOC: US 13:58
PROVIDERS: PCP Nurse Practitioner; Visit Provider Obstetrics & Gynecology
DX: Z34.93 Encounter for supervision of normal pregnancy, unspecified, third trimester (principal); Z3A.31 31 weeks gestation of pregnancy; D64.9 Anemia, unspecified
CPT/HCPCS: 76815